=== PATIENT | male | born 1965 | race Hispanic/Latino ===

== ENCOUNTER 2016-09-09 08:08 | Emergency (ER) | payer SELFPAY ==
[2016-09-09] MEDS ORDERED: ATIVAN IV ONE (10:44)
[2016-09-09] MEDS ORDERED: NACL 0.9% 1000 ML 1,000 ML IV ONE (10:44)
[2016-09-09] MEDS ORDERED: GLUCAGEN IV ONE (10:44)
--- NOTE | 2016-09-09 10:46 | Emergency Department Report ---
ED General Adult HPI - General Chief complaint: Skin/Abscess/Foreign Body Stated complaint: FB IN THROAT Time Seen by Provider: 09/09/16 10:28 Source: patient Mode of arrival: Ambulatory Limitations: No Limitations - History of Present Illness Onset/Timin -: Gradual, hour(s) Location: mouth, neck Severity scale (0 -10): 0 Quality: aching Consistency: constant Improves with: none Worsens with: none Associated Symptoms: denies: confusion, chest pain, cough, diaphoresis, fever/ chills, headaches, loss of appetite, malaise, nausea/vomiting, shortness of breath, syncope, weakness - Related Data Home Medications Medication Instructions Recorded Confirmed Last Taken Omeprazole [Prilosec] 04/15/13 04/15/13 Unknown Previous Rx's Medication Instructions Recorded Last Taken Type Azithromycin [Zithromax Z-MARVIN] 250 mg PO DAILY #6 tab 04/15/13 Unknown Rx Prednisone 20 mg PO QDAY #5 tablet 04/15/13 Unknown Rx Promethazine /Codeine 5 ml PO Q6H PRN #60 ml 04/15/13 Unknown Rx [Phenergan/Codeine 6.25-10 mg/5 ml] Ibuprofen [Motrin] 800 mg PO Q8H PRN #14 tablet 11/28/13 Unknown Rx HYDROcodone/APAP 10-325 [[place] 1 each PO Q4-6H PRN #20 tablet 11/29/13 Unknown Rx 10-325 mg TAB] Amoxicillin [Trimox CAP] 500 mg PO Q8H #21 capsule 02/12/14 Unknown Rx HYDROcodone/APAP 5-325 [[place] 1 each PO Q6HR PRN #12 tablet 09/03/15 Unknown Rx 5-325 mg TAB] Ibuprofen [Motrin 800 MG tab] 800 mg PO Q8HR PRN #30 tablet 09/03/15 Unknown Rx Sulfamethoxazole/Trimethoprim 1 each PO BID #20 tablet 09/03/15 Unknown Rx [Bactrim DS TAB] Clindamycin [Clindamycin CAP] 600 mg PO TID #30 capsule 11/27/15 Unknown Rx HYDROcodone/APAP 5-325 [[place] 1 each PO Q6HR PRN #15 tablet 11/27/15 Unknown Rx 5/325] Allergies Allergy/AdvReac Type Severity Reaction Status Date / Time No Known Allergies Allergy Verified 09/09/16 08:11 ED Review of Systems ROS: Stated complaint: FB IN THROAT Other details as noted in HPI Comment: All other systems reviewed and negative ED Past Medical Hx - Past Medical History Hx Hypertension: Yes Hx Heart Attack/AMI: Yes Hx GERD: Yes Additional medical history: Hypercholesterolemia. MORBID OBESITY - Social History Smoking Status: Current Every Day Smoker Substance Use Type: None - Medications Home Medications: Home Medications Medication Instructions Recorded Confirmed Last Taken Type Azithromycin [Zithromax Z-MARVIN] 250 mg PO DAILY #6 tab 04/15/13 Unknown Rx Omeprazole [Prilosec] 04/15/13 04/15/13 Unknown History Prednisone 20 mg PO QDAY #5 tablet 04/15/13 Unknown Rx Promethazine /Codeine 5 ml PO Q6H PRN #60 ml 04/15/13 Unknown Rx [Phenergan/Codeine 6.25-10 mg/5 ml] Ibuprofen [Motrin] 800 mg PO Q8H PRN #14 tablet 11/28/13 Unknown Rx HYDROcodone/APAP 10-325 [[place] 1 each PO Q4-6H PRN #20 tablet 11/29/13 Unknown Rx 10-325 mg TAB] Amoxicillin [Trimox CAP] 500 mg PO Q8H #21 capsule 02/12/14 Unknown Rx HYDROcodone/APAP 5-325 [[place] 1 each PO Q6HR PRN #12 tablet 09/03/15 Unknown Rx 5-325 mg TAB] Ibuprofen [Motrin 800 MG tab] 800 mg PO Q8HR PRN #30 tablet 09/03/15 Unknown Rx Sulfamethoxazole/Trimethoprim 1 each PO BID #20 tablet 09/03/15 Unknown Rx [Bactrim DS TAB] Clindamycin [Clindamycin CAP] 600 mg PO TID #30 capsule 11/27/15 Unknown Rx HYDROcodone/APAP 5-325 [[place] 1 each PO Q6HR PRN #15 tablet 11/27/15 Unknown Rx 5/325] ED Physical Exam - General Limitations: No Limitations General appearance: alert, in no apparent distress - Head Head exam: Present: atraumatic, normocephalic - Eye Eye exam: Present: normal appearance - ENT ENT exam: Present: normal exam, normal orophraynx, mucous membranes moist, TM's normal bilaterally - Neck Neck exam: Present: normal inspection - Respiratory Respiratory exam: Present: normal lung sounds bilaterally. Absent: respiratory distress - Cardiovascular Cardiovascular Exam: Present: regular rate, normal rhythm. Absent: systolic murmur, diastolic murmur, rubs, gallop - GI/Abdominal GI/Abdominal exam: Present: soft, normal bowel sounds - Rectal Rectal exam: Present: deferred - Extremities Exam Extremities exam: Present: normal inspection - Back Exam Back exam: Present: normal inspection - Neurological Exam Neurological exam: Present: alert, oriented X3 - Psychiatric Psychiatric exam: Present: normal affect, normal mood - Skin Skin exam: Present: warm, dry, intact, normal color. Absent: rash ED Course Vital Signs 09/09/16 09/09/16 09/09/16 08:11 08:43 10:30 Temperature 98.2 F 98.4 F Pulse Rate 102 H 104 H 86 Respiratory 20 16 18 Rate Blood Pressure 158/116 Blood Pressure 150/93 128/94 [Right] O2 Sat by Pulse 98 95 96 Oximetry 09/09/16 12:22 Temperature 98.3 F Pulse Rate 93 H Respiratory 18 Rate Blood Pressure Blood Pressure 133/84 [Right] O2 Sat by Pulse 95 Oximetry ED Medical Decision Making - Radiology Data Radiology results: report reviewed, image reviewed - Medical Decision Making patient doing well, handling his own secretions , able to drink a coke here , ct neck with no evidence of FB in throat , will dc and follow up with GI as needed Critical care attestation.: If time is entered above; I have spent that time in minutes in the direct care of this critically ill patient, excluding procedure time. ED Disposition Clinical Impression: Foreign body in throat Disposition: DISCHARGED TO HOME OR SELFCARE Is pt being admited?: No Does the pt Need Aspirin: No Condition: Good Instructions: Foreign Body in Pharynx (ED) Referrals: PRIMARY CARE, [Primary Care Provider] - 3-5 Days Time of Disposition: 12:52
--- NOTE | 2016-09-09 12:42 | Cat Scan Report ---
CT NECK WITHOUT CONTRAST INDICATION: Possible foreign body in esophagus. COMPARISON: None similar. FINDINGS: Noncontrast axial, sagittal and coronal CT reconstructions through the neck demonstrate patent airway with grossly unremarkable esophagus and also remainder visualized pharynx, hypopharynx and the larynx. Normal size thyroid. Streak artifact related to patient's body habitus. No radiopaque foreign body along the imaged airway or esophagus noted. Few small neck lymph nodes noted, within size limits. Symmetric imaged salivary glands. Streak artifact from few radiopaque dental material limits exam. Mild rightward nasal septal bowing. Mild right ethmoid sinusitis posteriorly. Near complete left sphenoid sinus mucoperiosteal thickening. Slight right mastoiditis. Clear remainder imaged paranasal sinuses and left mastoid air cells. Normal imaged intracranial appearance. Clear imaged lung apices. Few C5-C6 degenerative changes. CONCLUSION: No acute neck CT abnormality on this unenhanced exam or visualization of radiopaque foreign body with few other findings, including severe left sphenoid chronic sinusitis, amongst others, as above. Please correlate. Thank you for the opportunity to participate in this patient's care.
[2016-09-09 13:16] VITALS: BP 130/82
== END 2016-09-09 13:17 | disposition home or self-care (01) ==
LOC: ED 08:08
DX: T17.208A Unspecified foreign body in pharynx causing other injury, initial encounter (principal); I10 Essential (primary) hypertension; I25.2 Old myocardial infarction; K21.9 Gastro-esophageal reflux disease without esophagitis; E78.00 Pure hypercholesterolemia, unspecified; E66.01 Morbid (severe) obesity due to excess calories; F17.200 Nicotine dependence, unspecified, uncomplicated
CPT/HCPCS: 70490; 96361; 96374; 96375; 99283; J1610; J2060; J7030

== ENCOUNTER 2019-09-08 16:32 | Emergency (ER) | payer SELFPAY ==
[2019-09-08] MEDS ORDERED: ASPIRIN 325 MG TAB PO ONE (16:46)
--- NOTE | 2019-09-08 17:36 | XRay Report ---
CHEST 2 VIEWS INDICATION / CLINICAL INFORMATION: Chest Pain. COMPARISON: 02/10/2017 FINDINGS: SUPPORT DEVICES: None. HEART / MEDIASTINUM: No significant abnormality. LUNGS / PLEURA: No significant pulmonary or pleural abnormality. No pneumothorax. ADDITIONAL FINDINGS: No significant additional findings. IMPRESSION: 1. No acute findings. Signer Name: Uche Crockett MD Signed: 09/08/2019 5:32 PM Workstation Name: [id number]
[2019-09-08 17:39] LABS: Basophils % (Auto) 0.4 % (0.0-1.8); Eosinophils # (Auto) 0.2 K/mm3 (0.0-0.4); Eosinophils % (Auto) 3.9 % (0.0-4.3); Hematocrit 45.9 % (35.5-45.6); Hemoglobin 15.7 gm/dl (11.8-15.2); Lymphocytes % (Auto) 35.2 % (13.4-35.0); Mean Corpuscular HGB Conc 34 % (32-34); Mean Corpuscular Volume 98 fl (84-94); Monocytes # (Auto) 0.5 K/mm3 (0.0-0.8); Monocytes % (Auto) 8.1 % (0.0-7.3); Platelet Count 151 K/mm3 (140-440); Red Blood Count 4.67 M/mm3 (3.65-5.03); Red Cell Distribution Width 12.9 % (13.2-15.2)
--- NOTE | 2019-09-08 17:45 | Emergency Department Report ---
HPI - General Chief Complaint: Chest Pain PUI?: No Time Seen by Provider: 09/08/19 17:16 - HPI HPI: Room 26 The patient is a 54-year-old male present with a chief complaint of chest pain. The patient states he was working outside when he developed substernal chest pain described as a sharpness and pressure. Patient admits to shortness of breath and diaphoresis. Patient denies nausea or vomiting. Patient states there is a pleuritic component to his pain. Patient denies any recent flights or long car trips. Patient states he was advised by care team assistant that he needs a cardiac catheterization but he has not yet received 1. ED Past Medical Hx - Past Medical History Previous Medical History?: Yes Hx Hypertension: Yes Hx Heart Attack/AMI: Yes Hx Diabetes: Yes Hx GERD: Yes Additional medical history: Hypercholesterolemia. MORBID OBESITY - Surgical History Additional Surgical History: Herniorrhaphy - Family History Family history: no significant - Social History Smoking Status: Former Smoker (None x3 years) Substance Use Type: None (Denies illicit drug use) - Medications Home Medications: Home Medications Medication Instructions Recorded Confirmed Last Taken Type Azithromycin [Zithromax Z-MARVIN] 250 mg PO DAILY #6 tab 04/15/13 Unknown Rx Omeprazole [Prilosec] 04/15/13 04/15/13 Unknown History Prednisone 20 mg PO QDAY #5 tablet 04/15/13 Unknown Rx Promethazine /Codeine 5 ml PO Q6H PRN #60 ml 04/15/13 Unknown Rx [Phenergan/Codeine 6.25-10 mg/5 ml] Ibuprofen [Motrin] 800 mg PO Q8H PRN #14 tablet 11/28/13 Unknown Rx HYDROcodone/APAP 10-325 [[address] 1 each PO Q4-6H PRN #20 tablet 11/29/13 Unknown Rx 10-325 mg TAB] Amoxicillin [Trimox CAP] 500 mg PO Q8H #21 capsule 02/12/14 Unknown Rx HYDROcodone/APAP 5-325 [[address] 1 each PO Q6HR PRN #12 tablet 09/03/15 Unknown Rx 5-325 mg TAB] Ibuprofen [Motrin 800 MG tab] 800 mg PO Q8HR PRN #30 tablet 09/03/15 Unknown Rx Sulfamethoxazole/Trimethoprim 1 each PO BID #20 tablet 09/03/15 Unknown Rx [Bactrim DS TAB] Clindamycin [Clindamycin CAP] 600 mg PO TID #30 capsule 11/27/15 Unknown Rx ALBUTEROL NEB's [Proventil 0.083% 2.5 mg IH TID PRN #1 box 02/10/17 Unknown Rx NEBS] Albuterol INH(or & Nicu Only) 2 puff IH QID PRN #1 inhalation 02/10/17 Unknown Rx [ProAir HFA Inhaler] Azithromycin [Zithromax Z-MARVIN] 1 dose PO DAILY 5 Days tab 02/10/17 Unknown Rx Benzonatate [Tessalon Perles] 100 mg PO Q8HR PRN #30 capsule 02/10/17 Unknown Rx HYDROcodone/APAP 5-325 [[address] 1 each PO Q6HR PRN #15 tablet 02/10/17 Unknown Rx 5-325 mg TAB] metFORMIN [Glucophage] 500 mg PO BID #60 tablet 02/10/17 Unknown Rx ED Review of Systems ROS: Stated complaint: CHEST PAIN Other details as noted in HPI Constitutional: diaphoresis Eyes: denies: eye pain ENT: denies: throat pain Respiratory: shortness of breath Cardiovascular: chest pain Endocrine: no symptoms reported Gastrointestinal: denies: nausea, vomiting Physical Exam - Physical Exam Vital Signs: Vital Signs 09/08/19 16:43 Temperature 98.3 F Pulse Rate 74 Respiratory 16 Rate Blood Pressure 158/90 O2 Sat by Pulse 96 Oximetry Physical Exam: GENERAL: The patient is well-developed well-nourished male sitting on stretcher not appearing to be in acute distress. [] HEENT: Normocephalic. Atraumatic. Extraocular motions are intact. Patient has moist mucous membranes. NECK: Supple. Trachea midline CHEST/LUNGS: Clear to auscultation. There is no respiratory distress noted. HEART/CARDIOVASCULAR: Regular. There is no tachycardia. There is no gallop rub or murmur. ABDOMEN: Abdomen is soft, nontender. Patient has normal bowel sounds. There is no abdominal distention. SKIN: There is no rash. There is trace bilateral lower extremity pitting edema. There is no diaphoresis. NEURO: The patient is awake, alert, and oriented. The patient is cooperative. The patient has normal speech MUSCULOSKELETAL: There is no evidence of acute injury. ED Course Vital Signs 09/08/19 16:43 Temperature 98.3 F Pulse Rate 74 Respiratory 16 Rate Blood Pressure 158/90 O2 Sat by Pulse 96 Oximetry ED Medical Decision Making - Lab Data Result diagrams: 09/08/19 17:32 09/08/19 17:32 Laboratory Tests 09/08/19 09/08/19 09/08/19 17:32 17:32 17:32 WBC 5.6 RBC 4.67 Hgb 15.7 H Hct 45.9 H MCV 98 H MCH 34 H MCHC 34 RDW 12.9 L Plt Count 151 Lymph % (Auto) 35.2 H [place] % (Auto) 8.1 H Eos % (Auto) 3.9 Baso % (Auto) 0.4 Lymph # 2.0 [place] # 0.5 Eos # 0.2 Baso # 0.0 Seg Neutrophils % 52.4 Seg Neutrophils # 2.9 D-Dimer 173.65 Sodium 139 Potassium 4.3 Chloride 98.6 Carbon Dioxide 28 Anion Gap 17 BUN 14 Creatinine 0.7 L Estimated GFR > 60 BUN/Creatinine Ratio 20 Glucose 224 H Calcium 9.7 Troponin T < 0.010 NT-Pro-B Natriuret Pep 09/08/19 17:32 WBC RBC Hgb Hct MCV MCH MCHC RDW Plt Count Lymph % (Auto) [place] % (Auto) Eos % (Auto) Baso % (Auto) Lymph # [place] # Eos # Baso # Seg Neutrophils % Seg Neutrophils # D-Dimer Sodium Potassium Chloride Carbon Dioxide Anion Gap BUN Creatinine Estimated GFR BUN/Creatinine Ratio Glucose Calcium Troponin T NT-Pro-B Natriuret Pep 24.01 - EKG Data -: EKG Interpreted by Me EKG shows normal: sinus rhythm Rate: normal - EKG Data When compared to previous EKG there are: previous EKG unavailable Interpretation: other (No ischemic changes seen) - Radiology Data Radiology results: report reviewed (Chest x-ray), image reviewed (Chest x-ray) interpreted by me: Chest x-ray-no focal infiltrates, no pneumothorax [facility] [address] [place] [address] XRay Report Signed Patient: MARCELINA SEGURA MR#: [id number] : 1965 Acct:[id number] Age/Sex: 54 / M ADM Date: 09/08/19 Loc: ED Attending Dr: Ordering Physician: KAVYA NUGENT MD Date of Service: 09/08/19 Procedure(s): XR chest routine 2V Accession Number(s): [id number] cc: KAVYA NUGENT MD Fluoro Time In Minutes: CHEST 2 VIEWS INDICATION / CLINICAL INFORMATION: Chest Pain. COMPARISON: 02/10/2017 FINDINGS: SUPPORT DEVICES: None. HEART / MEDIASTINUM: No significant abnormality. LUNGS / PLEURA: No significant pulmon carolyn or pleural abnormality. No pneumothorax. ADDITIONAL FINDINGS: No significant additional findings. IMPRESSION: 1. No acute findings. Signer Name: Uche Crockett MD Signed: 09/08/2019 5:32 PM Workstation Name: [id number] Transcribed By: [place] Dictated By: Uche Crockett MD Electronically Authenticated By: Uche Crockett MD Signed Date/Time: 09/08/191731 DD/ 30 TD/TT: - Medical Decision Making Asked discussed with the patient at length my concern for his chest pain and his lack of a previous cardiac work-up. I explained that it is possible he may be having an event despite his lab results and EKG findings. Patient verbalized understanding and states he does not wish to be admitted to the hospital. Patient verbalized understanding of increased morbidity and/or mortality should he leave the hospital AGAINST MEDICAL ADVICE - Differential Diagnosis ACS, pericarditis, GERD Critical care attestation.: If time is entered above; I have spent that time in minutes in the direct care of this critically ill patient, excluding procedure time. ED Disposition Clinical Impression: Chest pain Disposition: DC-07 LEFT AGAINST MED ADVICE Is pt being admited?: No Does the pt Need Aspirin: Yes Condition: Undetermined Instructions: Chest Pain (ED) Time of Disposition: 18:51 (Patient leaving AMA)
[2019-09-08 17:55] LABS: BUN/Creatinine Ratio 20; Blood Urea Nitrogen 14 mg/dL (9-20); Calcium 9.7 mg/dL (8.4-10.2); Hemolysis Index 11
[2019-09-08 18:14] VITALS: BP 102/74
== END 2019-09-08 19:01 | disposition left against medical advice (07) ==
LOC: ED 16:32
DX: R07.89 Other chest pain (principal); I11.0 Hypertensive heart disease with heart failure; I50.9 Heart failure, unspecified; E11.9 Type 2 diabetes mellitus without complications; K21.9 Gastro-esophageal reflux disease without esophagitis; Z87.891 Personal history of nicotine dependence
CPT/HCPCS: 36415; 71046; 80048; 83880; 84484; 85025; 85379; 93005

== ENCOUNTER 2021-04-16 03:02 | Inpatient (IN) | payer SELFPAY ==
--- NOTE | 2021-04-16 03:43 | XRay Report ---
CHEST 1 VIEW INDICATION / CLINICAL INFORMATION: Difficulty breathing. COMPARISON: 09/08/2019 FINDINGS: SUPPORT DEVICES: None. HEART / MEDIASTINUM: No significant abnormality. LUNGS / PLEURA: There are mild scattered bilateral pulmonary opacities mostly present in the mid and lower lung [place]. No pleural effusion. No pneumothorax. ADDITIONAL FINDINGS: No significant additional findings. IMPRESSION: 1. Mild scattered pulmonary opacities, worrisome for multifocal viral pneumonia. Please correlate wit h Covid status. Signer Name: Debra Contreras MD Signed: 04/16/2021 3:38 AM Workstation Name: [email or web address]
[2021-04-16] MEDS ORDERED: dexAMETHasone 4 MG/ML VIAL IV ONE (07:06)
[2021-04-16 07:35] LABS: Hematocrit 36.5 % (35.5-45.6); Hemoglobin 11.6 gm/dl (11.8-15.2); Mean Corpuscular HGB Conc 32 % (32-34); Mean Corpuscular Volume 80 fl (84-94); Platelet Count 188 K/mm3 (140-440); Red Blood Count 4.56 M/mm3 (3.65-5.03); Red Cell Distribution Width 16.3 % (13.2-15.2)
[2021-04-16 08:00] LABS: Alanine Aminotransferase 33 units/L (7-56); Albumin 3.8 g/dL (3.9-5); BUN/Creatinine Ratio 22; Blood Urea Nitrogen 13 mg/dL (9-20); Calcium 8.8 mg/dL (8.4-10.2); Hemolysis Index 10
--- NOTE | 2021-04-16 09:05 | Emergency Department Report ---
ED General Adult HPI - General Chief complaint: Dyspnea/Respdistress Stated complaint: SUYAPA Time Seen by Provider: 04/16/21 07:01 Source: patient Mode of arrival: Ambulatory Limitations: No Limitations - History of Present Illness Initial comments: sob and suyapa , not vaccinated , histoyr of htn , diabetes, no fever no chets pain -: Gradual Location: head Severity scale (0 -10): 2 Quality: dull - Related Data Home Medications Medication Instructions Recorded Confirmed Last Taken Omeprazole [Prilosec] 04/15/13 04/15/13 Unknown Previous Rx's Medication Instructions Recorded Last Taken Type ALBUTEROL NEB's [Proventil 0.083% 2.5 mg IH TID PRN #1 box 02/10/17 Unknown Rx NEBS] Albuterol Mdi (or & Nicu Only) 2 puff IH QID PRN #1 inhalation 02/10/17 Unknown Rx [ProAir HFA Inhaler] Benzonatate [Tessalon Perles] 100 mg PO Q8HR PRN #30 capsule 02/10/17 Unknown Rx metFORMIN [Glucophage] 500 mg PO BID #60 tablet 02/10/17 Unknown Rx Allergies Allergy/AdvReac Type Severity Reaction Status Date / Time No Known Allergies Allergy Verified 02/09/17 19:27 ED Review of Systems ROS: Stated complaint: SUYAPA Other details as noted in HPI Constitutional: denies: chills, fever Eyes: denies: eye pain, eye discharge, vision change ENT: denies: ear pain, throat pain Respiratory: denies: cough, shortness of breath, wheezing Cardiovascular: denies: chest pain, palpitations Endocrine: no symptoms reported Gastrointestinal: denies: abdominal pain, nausea, diarrhea Genitourinary: denies: urgency, dysuria Musculoskeletal: denies: back pain, joint swelling, arthralgia Skin: denies: rash, lesions Neurological: denies: headache, weakness, paresthesias Psychiatric: denies: anxiety, depression Hematological/Lymphatic: denies: easy bleeding, easy bruising ED Past Medical Hx - Past Medical History Previous Medical History?: Yes Hx Hypertension: Yes Hx Heart Attack/AMI: Yes Hx Diabetes: Yes Hx GERD: Yes Additional medical history: Hypercholesterolemia. MORBID OBESITY - Surgical History Past Surgical History?: Yes Additional Surgical History: Herniorrhaphy - Social History Smoking Status: Former Smoker (None x3 years) Substance Use Type: None (Denies illicit drug use) - Medications Home Medications: Home Medications Medication Instructions Recorded Confirmed Last Taken Type Omeprazole [Prilosec] 04/15/13 04/15/13 Unknown History ALBUTEROL NEB's [Proventil 0.083% 2.5 mg IH TID PRN #1 box 02/10/17 Unknown Rx NEBS] Albuterol Mdi (or & Nicu Only) 2 puff IH QID PRN #1 inhalation 02/10/17 Unknown Rx [ProAir HFA Inhaler] Benzonatate [Tessalon Perles] 100 mg PO Q8HR PRN #30 capsule 02/10/17 Unknown Rx metFORMIN [Glucophage] 500 mg PO BID #60 tablet 02/10/17 Unknown Rx ED Physical Exam - General Limitations: No Limitations General appearance: alert, in no apparent distress - Head Head exam: Present: atraumatic, normocephalic - Eye Eye exam: Present: normal appearance - ENT ENT exam: Present: mucous membranes moist - Neck Neck exam: Present: normal inspection - Respiratory Respiratory exam: Present: normal lung sounds bilaterally. Absent: respiratory distress - Cardiovascular Cardiovascular Exam: Present: regular rate, normal rhythm. Absent: systolic murmur, diastolic murmur, rubs, gallop - GI/Abdominal GI/Abdominal exam: Present: soft, normal bowel sounds - Rectal Rectal exam: Present: deferred - Extremities Exam Extremities exam: Present: normal inspection - Back Exam Back exam: Present: normal inspection - Neurological Exam Neurological exam: Present: alert, oriented X3 - Psychiatric Psychiatric exam: Present: normal affect, normal mood - Skin Skin exam: Present: warm, dry, intact, normal color. Absent: rash ED Course Vital Signs 04/16/21 04/16/21 03:05 05:34 Temperature 98.0 F Pulse Rate 90 Respiratory 20 Rate Blood Pressure 142/78 O2 Sat by Pulse 93 93 Oximetry ED Medical Decision Making - Lab Data Result diagrams: 04/16/21 06:47 04/16/21 06:47 Critical care attestation.: If time is entered above; I have spent that time in minutes in the direct care of this critically ill patient, excluding procedure time. ED Disposition Clinical Impression: Pneumonia due to COVID-19 virus, Hypoxia Disposition: 09 ADMITTED INPATIENT Is pt being admited?: Yes Does the pt Need Aspirin: No Condition: Stable Instructions: Bacterial Pneumonia (ED), Hypoxia Referrals: PRIMARY CARE, [Primary Care Provider] - 3-5 Days
[2021-04-16] MEDS ORDERED: ONDANSETRON 4 MG/2 ML INJ IV PRN (09:16)
[2021-04-16] MEDS ORDERED: NALOXONE 0.4 MG/1 ML INJ IV PRN (09:16)
[2021-04-16] MEDS ORDERED: ACETAMINOPHEN 325 MG TAB PO PRN (09:16)
[2021-04-16] MEDS ORDERED: MORPHINE 4 MG/1 ML INJ IV PRN (09:16)
[2021-04-16] MEDS ORDERED: ENOXAPARIN 40 MG/0.4 ML INJ SUB-Q ONE ×2 (10:18→23:06)
[2021-04-16] MEDS: guaiFENesin ER 600 MG TAB PO SCH (13:56)
[2021-04-16] MEDS: IPRATROPIUM/ALBUTEROL SULFATE 3 ML AMPUL.NEB IH SCH (13:59)
--- NOTE | 2021-04-16 15:35 | History and Physical Report ---
History of Present Illness Date of examination: 04/16/21 Date of admission: 04/16/21 09:16 Chief complaint: Cough and shortness of breath Medications and Allergies Allergies Allergy/AdvReac Type Severity Reaction Status Date / Time No Known Allergies Allergy Verified 04/17/21 14:15 Home Medications Medication Instructions Recorded Confirmed Last Taken Type Omeprazole [Prilosec] 40 mg PO QDAY 04/15/13 04/17/21 Unknown History Albuterol Mdi (or & Nicu Only) 2 puff IH QID PRN #1 inhalation 02/10/17 04/17/21 Unknown Rx [ProAir HFA Inhaler] ALBUTEROL NEB's [Proventil 0.083% 2.5 mg IH QID PRN 04/17/21 04/17/21 Unknown History NEBS] Ascorbic Acid/Ascorbate Sodium 500 mg PO QDAY 04/17/21 04/17/21 Unknown History [Vitamin C 500 mg Tablet Chew] Aspirin [Aspirin BABY CHEW TAB] 81 mg PO QDAY 04/17/21 04/17/21 Unknown History Ergocalciferol [Vitamin D2] 1 cap PO QWEEK 04/17/21 04/17/21 Unknown History Gabapentin 300 mg PO TID 04/17/21 04/17/21 Unknown History Ibuprofen/Pseudoephedrine HCl 1 each PO Q6H PRN 04/17/21 04/17/21 Unknown History [Advil Cold & Sinus Caplet] Insulin Detemir [Levemir Flextouch] 20 - 25 units SQ QHS 04/17/21 04/17/21 Unknown History Meloxicam [Mobic] 15 mg PO QDAY 04/17/21 04/17/21 Unknown History Metformin HCl [metFORMIN] 1,000 mg PO BIDAC 04/17/21 04/17/21 Unknown History Multivitamin 1 each PO QDAY 04/17/21 04/17/21 Unknown History [place]-3 Fatty Acids/Fish Oil [Fish 1 each PO QDAY 04/17/21 04/17/21 Unknown History Oil 1,000 mg Capsule] Potassium 99 mg PO QDAY 04/17/21 04/17/21 Unknown History Pravastatin Sodium [Pravastatin] 40 mg PO QHS 04/17/21 04/17/21 Unknown History Zinc [Zinc 50mg TAB] 50 mg PO QDAY 04/17/21 04/17/21 Unknown History carvediloL [Coreg] 12.5 mg PO BID 04/17/21 04/17/21 Unknown History glipiZIDE [Glucotrol] 10 mg PO TID 04/17/21 04/17/21 Unknown History Active Meds: Active Medications Acetaminophen (Acetaminophen 325 Mg Tab) 650 mg PO Q4H PRN PRN Reason: Pain MILD(1-3)/Fever >100.5/ADDISON Albuterol/Ipratropium (Ipratropium/Albuterol Sulfate 3 Ml Ampul.Neb) 1 ampul IH Q6HRT [facility] Last Admin: 04/16/21 13:59 Dose: Not Given Guaifenesin (Guaifenesin Er 600 Mg Tab) 600 mg PO BID [facility] Last Admin: 04/16/21 13:56 Dose: 600 mg Morphine Sulfate (Morphine 4 Mg/1 Ml Inj) 4 mg IV Q4H PRN PRN Reason: Pain , Severe (7-10) Naloxone HCl (Naloxone 0.4 Mg/1 Ml Inj) 0.1 mg IV Q2MIN PRN PRN Reason: Res Rate </= 8 or 02 SAT < 92% Ondansetron HCl (Ondansetron 4 Mg/2 Ml Inj) 4 mg IV Q8H PRN PRN Reason: Nausea And Vomiting Oxycodone/Acetaminophen (Oxycodone /Acetaminophen 5-325mg Tab) 1 tab PO Q6H PRN PRN Reason: Pain, Moderate (4-6) Sodium Chloride (Sodium Chloride 0.9% 10 Ml Flush Syringe) 10 ml IV BID [facility] Last Admin: 04/16/21 11:23 Dose: Not Given Sodium Chloride (Sodium Chloride 0.9% 10 Ml Flush Syringe) 10 ml IV PRN PRN PRN Reason: LINE FLUSH Exam - Physical Exam Narrative exam: GENERAL: Well-developed well-nourished. Sitting up in bed, in no acute distr ess. HEENT: Nasal cannula at 5 L/min NECK: Supple. CHEST/LUNGS: Decreased breath sounds bilaterally. HEART/CARDIOVASCULAR: RRR. No murmur, rubs or gallops appreciated. ABDOMEN: Obese. +BS. NT/ND. SKIN: No rashes noted. NEURO: No focal motor deficit. Follows all commands. MUSCULOSKELETAL: No joint effusion EXTREMITIES: No cyanosis, clubbing or edema. PSYCH: Cooperative. - Constitutional Vitals: Temp Pulse Resp BP Pulse Ox 98.0 F 90 20 142/78 98 04/16/21 03:05 04/16/21 03:05 04/16/21 03:05 04/16/21 03:05 04/16/21 09:51 HEART Score - HEART Score Troponin: Troponin T < 0.010 ng/mL (0.00-0.029) 04/16/21 06:47 Results - Labs CBC & Chem 7: 04/17/21 03:20 04/18/21 05:08 Labs: Laboratory Last Values WBC 4.1 K/mm3 (4.5-11.0) L 04/16/21 06:47 RBC 4.56 M/mm3 (3.65-5.03) 04/16/21 06:47 Hgb 11.6 gm/dl (11.8-15.2) L 04/16/21 06:47 Hct 36.5 % (35.5-45.6) 04/16/21 06:47 MCV 80 fl (84-94) L 04/16/21 06:47 MCH 25 pg (28-32) L 04/16/21 06:47 MCHC 32 % (32-34) 04/16/21 06:47 RDW 16.3 % (13.2-15.2) H 04/16/21 06:47 Plt Count 188 K/mm3 (140-440) 04/16/21 06:47 D-Dimer 295.17 ng/mlDDU (0-234) H 04/16/21 06:47 Sodium 133 mmol/L (137-145) L 04/16/21 06:47 Potassium 4.4 mmol/L (3.6-5.0) 04/16/21 06:47 Chloride 93.5 mmol/L (98-107) L 04/16/21 06:47 Carbon Dioxide 23 mmol/L (22-30) 04/16/21 06:47 Anion Gap 21 mmol/L 04/16/21 06:47 BUN 13 mg/dL (9-20) 04/16/21 06:47 Creatinine 0.6 mg/dL (0.8-1.3) L 04/16/21 06:47 Estimated GFR > 60 ml/min 04/16/21 06:47 BUN/Creatinine Ratio 22 % 04/16/21 06:47 Glucose 197 mg/dL (75-100) H 04/16/21 06:47 Calcium 8.8 mg/dL (8.4-10.2) 04/16/21 06:47 Total Bilirubin 0.40 mg/dL (0.1-1.2) 04/16/21 06:47 AST 48 units/L (5-40) H 04/16/21 06:47 ALT 33 units/L (7-56) 04/16/21 06:47 Alkaline Phosphatase 58 units/L (35-129) 04/16/21 06:47 Troponin T < 0.010 ng/mL (0.00-0.029) 04/16/21 06:47 C-Reactive Protein 6.00 mg/dL (0.00-1.30) H 04/16/21 06:47 Total Protein 7.2 g/dL (6.3-8.2) 04/16/21 06:47 Albumin 3.8 g/dL (3.9-5) L 04/16/21 06:47 Albumin/Globulin Ratio 1.1 % 04/16/21 06:47 Assessment and Plan Assessment and plan: #Acute hypoxic respiratory failure #Pneumonia #Suspected Covid infection -currently on 5L NC, no oxygen requirement at home -CXR shows bilateral infiltrates -d-dimer mildly elevated, will repeat in 48 hours, if elevated will consider CTA -patient uses albuterol nebulizer at home, could have underlying COPD or OHS due to size? -albuterol nebs -COVID PCR and rapid flu ordered -will start empiric antibiotics for CAP coverage #Type 2 diabetes with neuropathy -outpatient regimen: detemir 20-25 qhs, metformin 1g BID, glipizide 10mg -started lantus 25U QHS w/ SSI while inpatient -goal glucose 140-180s -continue gabapentin at home dose #Hypertension -continue carvedilol #Hyperlipidemia -atorvastatin #Obesity -BMI 50.2 -discussed lifestyle modifications (diet, exercise) and the effects of weight loss on overall healt. Time+10 minutes -candidate for bariatric surgery outpatient -high risk for sleep apnea, CPAP at night
[2021-04-16] MEDS ORDERED: DEXTROSE 50% IN WATER (25GM) 50 ML SYRINGE IV PRN (15:59)
[2021-04-16] MEDS ORDERED: SODIUM CHLORIDE 0.9% 1000 ML 1,000 ML IV SCH (16:00)
[2021-04-16] MEDS: cefTRIAXone/NS 1 GM/50 ML 1 GM/50 ML BAG IV SCH (18:04)
[2021-04-16] MEDS: AZITHROMYCIN 250 MG TAB PO SCH (18:12)
[2021-04-16] MEDS: INSULIN LISPRO 100 UNIT/ML SUB-Q SCH ×2 (18:35→22:00)
[2021-04-16] MEDS: ENOXAPARIN 40 MG/0.4 ML INJ SUB-Q SCH (22:00)
[2021-04-16] MEDS: ALBUTEROL 8.5 GM MDI INHALATION IH SCH (23:00)
[2021-04-17] MEDS ORDERED: guaiFENesin 100 MG/5 ML ORAL LIQD PO PRN (01:09)
[2021-04-17] MEDS: guaiFENesin ER 600 MG TAB PO SCH ×3 (01:10→21:40)
[2021-04-17] MEDS: MELATONIN 5 MG TAB PO PRN ×2 (01:38→23:09)
[2021-04-17] MEDS: oxyCODONE /ACETAMINOPHEN 5-325MG TAB PO PRN ×3 (01:38→18:35)
[2021-04-17] MEDS: IPRATROPIUM/ALBUTEROL SULFATE 3 ML AMPUL.NEB IH SCH (01:53)
[2021-04-17 04:05] LABS: Basophils % (Auto) 0.2 % (0.0-1.8); Hemoglobin 11.2 gm/dl (11.8-15.2); Lymphocytes # (Auto) 0.9 K/mm3 (1.2-5.4); Lymphocytes % (Auto) 22.2 % (13.4-35.0); Mean Corpuscular HGB Conc 31 % (32-34); Mean Corpuscular Volume 81 fl (84-94); Monocytes # (Auto) 0.5 K/mm3 (0.0-0.8); Monocytes % (Auto) 10.9 % (0.0-7.3); Platelet Count 190 K/mm3 (140-440); Red Blood Count 4.46 M/mm3 (3.65-5.03); Red Cell Distribution Width 16.1 % (13.2-15.2)
[2021-04-17 04:22] LABS: Blood Urea Nitrogen 13 mg/dL (9-20); Calcium 8.4 mg/dL (8.4-10.2); Hemolysis Index 7
[2021-04-17 04:36] LABS: BUN/Creatinine Ratio 19
[2021-04-17] MEDS: ALBUTEROL 8.5 GM MDI INHALATION IH SCH ×4 (07:29→19:27)
--- NOTE | 2021-04-17 08:17 | Progress Note ---
Assessment and Plan Assessment and plan: #Acute hypoxic respiratory failure #Pneumonia #Suspected Covid infection -currently on 5L [place], no oxygen requirement at home -CXR shows bilateral infiltrates -d-dimer mildly elevated, will repeat in 24 hours, if elevated will consider CTA -patient uses albuterol nebulizer at home, could have underlying COPD or OHS due to size? -albuterol nebs -continue azithromax and rocephin #Type 2 diabetes with neuropathy -outpatient regimen: detemir 20-25 qhs, metformin 1g BID, glipizide 10mg -continue lantus 25U QHS w/ SSI while inpatient -goal glucose 140-180s -continue gabapentin at home dose #Hypertension -continue carvedilol #Hyperlipidemia -atorvastatin #Obesity -BMI 50.2 -discussed lifestyle modifications (diet, exercise) and the effects of weight loss on overall health. -candidate for bariatric surgery outpatient -high risk for sleep apnea, CPAP at night Disposition Plan: Continue medical management History Interval history: No acute events overnight. Patient has multiple complaints about daytime nursing. Shortness of breath is stable. Continues to have cough that is bothersome. No other complaints at this time. Hospitalist Physical - Physical exam Narrative exam: GENERAL: Well-developed well-nourished. Sitting up in bed, in no acute distress. HEENT: Nasal cannula at 5 L/min NECK: Supple. CHEST/LUNGS: Decreased breath sounds bilaterally. HEART/CARDIOVASCULAR: RRR. No murmur, rubs or gallops appreciated. ABDOMEN: Obese. +BS. NT/ND. SKIN: No rashes noted. NEURO: No focal motor deficit. Follows all commands. MUSCULOSKELETAL: No joint effusion EXTREMITIES: No cyanosis, clubbing or edema. PSYCH: Cooperative. - Constitutional Vitals: Temp Pulse Resp BP Pulse Ox 98.0 F 90 20 113/64 92 04/16/21 03:05 04/16/21 10:30 04/17/21 00:23 04/17/21 07:31 04/17/21 07:31 HEART Score - HEART Score Troponin: Troponin T < 0.010 ng/mL (0.00-0.029) 04/16/21 06:47 Results - Labs CBC & Chem 7: 04/17/21 03:20 04/18/21 05:08 Labs: Laboratory Last Values WBC 4.1 K/mm3 (4.5-11.0) L 04/17/21 03:20 RBC 4.46 M/mm3 (3.65-5.03) 04/17/21 03:20 Hgb 11.2 gm/dl (11.8-15.2) L 04/17/21 03:20 Hct 36.0 % (35.5-45.6) 04/17/21 03:20 MCV 81 fl (84-94) L 04/17/21 03:20 MCH 25 pg (28-32) L 04/17/21 03:20 MCHC 31 % (32-34) L 04/17/21 03:20 RDW 16.1 % (13.2-15.2) H 04/17/21 03:20 Plt Count 190 K/mm3 (140-440) 04/17/21 03:20 Lymph % (Auto) 22.2 % (13.4-35.0) 04/17/21 03:20 [place] % (Auto) 10.9 % (0.0-7.3) H 04/17/21 03:20 Eos % (Auto) 0.0 % (0.0-4.3) 04/17/21 03:20 Baso % (Auto) 0.2 % (0.0-1.8) 04/17/21 03:20 Lymph # (Auto) 0.9 K/mm3 (1.2-5.4) L 04/17/21 03:20 [place] # (Auto) 0.5 K/mm3 (0.0-0.8) 04/17/21 03:20 Eos # (Auto) 0.0 K/mm3 (0.0-0.4) 04/17/21 03:20 Baso # (Auto) 0.0 K/mm3 (0.0-0.1) 04/17/21 03:20 Seg Neutrophils % 66.7 % (40.0-70.0) 04/17/21 03:20 Seg Neutrophils # 2.8 K/mm3 (1.8-7.7) 04/17/21 03:20 D-Dimer 295.17 ng/mlDDU (0-234) H 04/16/21 06:47 Sodium 132 mmol/L (137-145) L 04/17/21 03:20 Potassium 4.0 mmol/L (3.6-5.0) 04/17/21 03:20 Chloride 93.4 mmol/L (98-107) L 04/17/21 03:20 Carbon Dioxide 23 mmol/L (22-30) 04/17/21 03:20 Anion Gap 20 mmol/L 04/17/21 03:20 BUN 13 mg/dL (9-20) 04/17/21 03:20 Creatinine 0.7 mg/dL (0.8-1.3) L 04/17/21 03:20 Estimated GFR > 60 ml/min 04/17/21 03:20 BUN/Creatinine Ratio 19 % 04/17/21 03:20 Glucose 235 mg/dL (75-100) H 04/17/21 03:20 POC Glucose 252 mg/dL (70-105) H 04/16/21 22:34 Calcium 8.4 mg/dL (8.4-10.2) 04/17/21 03:20 Total Bilirubin 0.40 mg/dL (0.1-1.2) 04/16/21 06:47 AST 48 units/L (5-40) H 04/16/21 06:47 ALT 33 units/L (7-56) 04/16/21 06:47 Alkaline Phosphatase 58 units/L (35-129) 04/16/21 06:47 Troponin T < 0.010 ng/mL (0.00-0.029) 04/16/21 06:47 C-Reactive Protein 6.00 mg/dL (0.00-1.30) H 04/16/21 06:47 Total Protein 7.2 g/dL (6.3-8.2) 04/16/21 06:47 Albumin 3.8 g/dL (3.9-5) L 04/16/21 06:47 Albumin/Globulin Ratio 1.1 % 04/16/21 06:47 Active Medications - Current Medications Current Medications: Generic Name Dose Route Start Last Admin Trade Name Freq PRN Reason Stop Dose Admin Acetaminophen 650 mg 04/16/21 09:16 Acetaminophen 325 Mg Tab PO Q4H PRN Pain MILD(1-3)/Fever >100.5/ADDISON Albuterol 2 puff 04/17/21 08:00 Albuterol 8.5 Gm Mdi Inhalation IH TIDRT EDILBERTO Azithromycin 500 mg 04/16/21 17:00 04/16/21 18:12 Azithromycin 250 Mg Tab PO 500 mg QDAY [facility] Administration Protocol Dextrose 50 ml 04/16/21 15:59 Dextrose 50% In Water (25gm) 50 Ml Syringe IV Q30MIN PRN Hypoglycemia Protocol Enoxaparin Sodium 40 mg 04/17/21 22:00 04/16/21 22:00 Enoxaparin 40 Mg/0.4 Ml Inj SUB-Q 40 mg QDAY@2200 [facility] Administration Protocol Guaifenesin 600 mg 04/16/21 14:00 04/17/21 01:10 Guaifenesin Er 600 Mg Tab PO 600 mg BID EDILBERTO Administration Sodium Chloride 1,000 mls @ 100 mls/hr 04/16/21 16:00 Nacl 0.9% 1000 Ml IV DIRECT EDILBERTO Ceftriaxone Sodium 1 gm in 50 mls @ 100 mls/hr 04/16/21 17:00 04/16/21 18:04 Rocephin/Ns 1 Gm/50 Ml IV 100 mls/hr Q24H [facility] Administration Protocol Insulin Human Lispro 0 unit 04/16/21 16:30 04/16/21 22:00 Insulin Lispro 100 Unit/Ml SUB-Q 4 unit ACHS [facility] Administration Protocol Melatonin 5 mg 04/17/21 01:09 04/17/21 01:38 Melatonin 5 Mg Tab PO 5 mg QHS PRN Administration Sleep Morphine Sulfate 4 mg 04/16/21 09:16 Morphine 4 Mg/1 Ml Inj IV Q4H PRN Pain , Severe (7-10) Naloxone HCl 0.1 mg 04/16/21 09:16 Naloxone 0.4 Mg/1 Ml Inj IV Q2MIN PRN Res Rate </= 8 or 02 SAT < 92% Ondansetron HCl 4 mg 04/16/21 09:16 Ondansetron 4 Mg/2 Ml Inj IV Q8H PRN Nausea And Vomiting Oxycodone/Acetaminophen 1 tab 04/16/21 09:16 04/17/21 01:38 Oxycodone /Acetaminophen 5-325mg Tab PO 1 tab Q6H PRN Administration Pain, Moderate (4-6) Sodium Chloride 10 ml 04/16/21 10:00 04/17/21 07:20 Sodium Chloride 0.9% 10 Ml Flush Syringe IV Not Given BID EDILBERTO Sodium Chloride 10 ml 04/16/21 09:16 Sodium Chloride 0.9% 10 Ml Flush Syringe IV PRN PRN LINE FLUSH
[2021-04-17] MEDS: INSULIN LISPRO 100 UNIT/ML SUB-Q SCH ×4 (11:10→23:15)
[2021-04-17] MEDS: AZITHROMYCIN 250 MG TAB PO SCH (11:10)
--- NOTE | 2021-04-17 13:03 | Electrocardiograph Report ---
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
[2021-04-17] MEDS ORDERED: ALBUTEROL 2.5 MG/3 ML NEBU IH PRN (18:00)
[2021-04-17] MEDS: cefTRIAXone/NS 1 GM/50 ML 1 GM/50 ML BAG IV SCH (18:05)
[2021-04-17] MEDS: guaiFENesin 100 MG/5 ML ORAL LIQD PO PRN (19:45)
[2021-04-17] MEDS: GABAPENTIN 300 MG CAP PO SCH (21:38)
[2021-04-17] MEDS: carvediloL 12.5 MG TAB PO SCH (21:40)
[2021-04-17] MEDS: ENOXAPARIN 40 MG/0.4 ML INJ SUB-Q SCH (21:41)
[2021-04-17] MEDS ORDERED: INSULIN GLARGINE 100 UNITS/ML SUB-Q SCH (22:00)
[2021-04-18] MEDS: oxyCODONE /ACETAMINOPHEN 5-325MG TAB PO PRN ×3 (02:09→18:59)
[2021-04-18 06:44] LABS: BUN/Creatinine Ratio 17; Blood Urea Nitrogen 10 mg/dL (9-20); Calcium 8.4 mg/dL (8.4-10.2); Hemolysis Index 4
[2021-04-18] MEDS: ALBUTEROL 8.5 GM MDI INHALATION IH SCH ×2 (09:20→14:31)
[2021-04-18] MEDS: ASPIRIN 81 MG TAB CHEW PO SCH (09:24)
[2021-04-18] MEDS: GABAPENTIN 300 MG CAP PO SCH ×3 (09:24→21:55)
[2021-04-18] MEDS: AZITHROMYCIN 250 MG TAB PO SCH (09:24)
[2021-04-18] MEDS: carvediloL 12.5 MG TAB PO SCH ×2 (09:25→21:55)
[2021-04-18] MEDS: INSULIN LISPRO 100 UNIT/ML SUB-Q SCH ×4 (09:25→21:57)
--- NOTE | 2021-04-18 11:40 | Progress Note ---
Assessment and Plan Assessment and plan: #Acute hypoxic respiratory failure #Pneumonia #Suspected Covid infection -currently on 5L [place], no oxygen requirement at home -CXR shows bilateral infiltrates -patient uses albuterol nebulizer at home, could have underlying COPD or OHS due to size? -COVID PCR collected today -albuterol nebs -continue azithromax and rocephin #Type 2 diabetes with neuropathy -outpatient regimen: detemir 20-25 qhs, metformin 1g BID, glipizide 10mg -continue lantus 25U QHS w/ SSI while inpatient -goal glucose 140-180s -continue gabapentin at home dose #Hypertension -continue carvedilol #Hyperlipidemia -atorvastatin #Obesity -BMI 50.2 -discussed lifestyle modifications (diet, exercise) and the effects of weight loss on overall health. -candidate for bariatric surgery outpatient -high risk for sleep apnea, CPAP at night Disposition Plan: continue management History Interval history: No acute events overnight. Patient reports feeling a little better. Still needing oxygen with exertion. Having back pain due to small bed. No other complaints at this time. Hospitalist Physical - Physical exam Narrative exam: GENERAL: Well-developed well-nourished. Sitting up in bed, in no acute distress. HEENT: Nasal cannula at 5 L/min NECK: Supple. CHEST/LUNGS: Decreased breath sounds bilaterally. HEART/CARDIOVASCULAR: RRR. No murmur, rubs or gallops appreciated. ABDOMEN: Obese. +BS. NT/ND. SKIN: No rashes noted. NEURO: No focal motor deficit. Follows all commands. MUSCULOSKELETAL: No joint effusion EXTREMITIES: No cyanosis, clubbing or edema. PSYCH: Cooperative. - Constitutional Vitals: Temp Pulse Resp BP Pulse Ox 98.6 F 84 16 123/69 91 04/18/21 04:37 04/18/21 09:25 04/18/21 09:20 04/18/21 04:37 04/18/21 09:26 HEART Score - HEART Score Troponin: Troponin T < 0.010 ng/mL (0.00-0.029) 04/16/21 06:47 Results - Labs CBC & Chem 7: 04/17/21 03:20 04/18/21 05:08 Labs: Laboratory Last Values WBC 4.1 K/mm3 (4.5-11.0) L 04/17/21 03:20 RBC 4.46 M/mm3 (3.65-5.03) 04/17/21 03:20 Hgb 11.2 gm/dl (11.8-15.2) L 04/17/21 03:20 Hct 36.0 % (35.5-45.6) 04/17/21 03:20 MCV 81 fl (84-94) L 04/17/21 03:20 MCH 25 pg (28-32) L 04/17/21 03:20 MCHC 31 % (32-34) L 04/17/21 03:20 RDW 16.1 % (13.2-15.2) H 04/17/21 03:20 Plt Count 190 K/mm3 (140-440) 04/17/21 03:20 Lymph % (Auto) 22.2 % (13.4-35.0) 04/17/21 03:20 [place] % (Auto) 10.9 % (0.0-7.3) H 04/17/21 03:20 Eos % (Auto) 0.0 % (0.0-4.3) 04/17/21 03:20 Baso % (Auto) 0.2 % (0.0-1.8) 04/17/21 03:20 Lymph # (Auto) 0.9 K/mm3 (1.2-5.4) L 04/17/21 03:20 [place] # (Auto) 0.5 K/mm3 (0.0-0.8) 04/17/21 03:20 Eos # (Auto) 0.0 K/mm3 (0.0-0.4) 04/17/21 03:20 Baso # (Auto) 0.0 K/mm3 (0.0-0.1) 04/17/21 03:20 Seg Neutrophils % 66.7 % (40.0-70.0) 04/17/21 03:20 Seg Neutrophils # 2.8 K/mm3 (1.8-7.7) 04/17/21 03:20 D-Dimer 295.17 ng/mlDDU (0-234) H 04/16/21 06:47 Sodium 130 mmol/L (137-145) L 04/18/21 05:08 Potassium 4.3 mmol/L (3.6-5.0) 04/18/21 05:08 Chloride 93.5 mmol/L (98-107) L 04/18/21 05:08 Carbon Dioxide 25 mmol/L (22-30) 04/18/21 05:08 Anion Gap 16 mmol/L 04/18/21 05:08 BUN 10 mg/dL (9-20) 04/18/21 05:08 Creatinine 0.6 mg/dL (0.8-1.3) L 04/18/21 05:08 Estimated GFR > 60 ml/min 04/18/21 05:08 BUN/Creatinine Ratio 17 % 04/18/21 05:08 Glucose 242 mg/dL (75-100) H 04/18/21 05:08 POC Glucose 245 mg/dL (70-105) H 04/18/21 08:10 Calcium 8.4 mg/dL (8.4-10.2) 04/18/21 05:08 Total Bilirubin 0.40 mg/dL (0.1-1.2) 04/16/21 06:47 AST 48 units/L (5-40) H 04/16/21 06:47 ALT 33 units/L (7-56) 04/16/21 06:47 Alkaline Phosphatase 58 units/L (35-129) 04/16/21 06:47 Troponin T < 0.010 ng/mL (0.00-0.029) 04/16/21 06:47 C-Reactive Protein 6.00 mg/dL (0.00-1.30) H 04/16/21 06:47 Total Protein 7.2 g/dL (6.3-8.2) 04/16/21 06:47 Albumin 3.8 g/dL (3.9-5) L 04/16/21 06:47 Albumin/Globulin Ratio 1.1 % 04/16/21 06:47 [place]/IV: Voiding Method Toilet Active Medications - Current Medications Current Medications: Generic Name Dose Route Start Last Admin Trade Name Freq PRN Reason Stop Dose Admin Acetaminophen 650 mg 04/16/21 09:16 Acetaminophen 325 Mg Tab PO Q4H PRN Pain MILD(1-3)/Fever >100.5/ADDISON Albuterol 2 puff 04/17/21 08:00 04/18/21 09:20 Albuterol 8.5 Gm Mdi Inhalation IH 2 puff TIDRT EDILBERTO Administration Albuterol 2.5 mg 04/17/21 18:00 Albuterol 2.5 Mg/3 Ml Nebu IH QID PRN Wheezing Aspirin 81 mg 04/18/21 10:00 04/18/21 09:24 Aspirin 81 Mg Tab Chew PO 81 mg QDAY EDILBERTO Administration Atorvastatin Calcium 20 mg 04/17/21 22:00 04/17/21 21:40 Atorvastatin 20 Mg Tab PO 20 mg QHS EDILBERTO Administration Azithromycin 500 mg 04/16/21 17:00 04/18/21 09:24 Azithromycin 250 Mg Tab PO 500 mg QDAY EDILBERTO Administration Protocol Carvedilol 12.5 mg 04/17/21 22:00 04/18/21 09:25 Carvedilol 12.5 Mg Tab PO 12.5 mg BID EDILBERTO Administration Dextrose 50 ml 04/16/21 15:59 Dextrose 50% In Water (25gm) 50 Ml Syringe IV Q30MIN PRN Hypoglycemia Protocol Enoxaparin Sodium 40 mg 04/17/21 22:00 04/17/21 21:41 Enoxaparin 40 Mg/0.4 Ml Inj SUB-Q 40 mg QDAY@2200 EDILBERTO Administration Protocol Gabapentin 300 mg 04/17/21 20:00 04/18/21 09:24 Gabapentin 300 Mg Cap PO 300 mg TID EDILBERTO Administration Guaifenesin 200 mg 04/17/21 18:53 04/17/21 19:45 Guaifenesin 100 Mg/5 Ml Oral Liqd PO 200 mg Q4H PRN Administration Cough Ceftriaxone Sodium 1 gm in 50 mls @ 100 mls/hr 04/16/21 17:00 04/17/21 18:05 Rocephin/Ns 1 Gm/50 Ml IV 100 mls/hr Q24H EDILBERTO Administration Protocol Insulin Glargine 25 units 04/18/21 22:00 Insulin Glargine 100 Units/Ml SUB-Q QHS EDILBERTO Insulin Human Lispro 0 unit 04/16/21 16:30 04/18/21 09:25 Insulin Lispro 100 Unit/Ml SUB-Q 4 unit ACHS EDILBERTO Administration Protocol Melatonin 5 mg 04/17/21 01:09 04/17/21 23:09 Melatonin 5 Mg Tab PO 5 mg QHS PRN Administration Sleep Morphine Sulfate 4 mg 04/16/21 09:16 Morphine 4 Mg/1 Ml Inj IV Q4H PRN Pain , Severe (7-10) Naloxone HCl 0.1 mg 04/16/21 09:16 Naloxone 0.4 Mg/1 Ml Inj IV Q2MIN PRN Res Rate </= 8 or 02 SAT < 92% Ondansetron HCl 4 mg 04/16/21 09:16 Ondansetron 4 Mg/2 Ml Inj IV Q8H PRN Nausea And Vomiting Oxycodone/Acetaminophen 1 tab 04/16/21 09:16 04/18/21 02:09 Oxycodone /Acetaminophen 5-325mg Tab PO 1 tab Q6H PRN Administration Pain, Moderate (4-6) Pneumococcal Polyvalent Vaccine 0.5 ml 04/19/21 12:00 Pneumococcal 23 Valent 0.5 Ml Vial IM 04/19/21 12:01 .ONCE ONE Sodium Chloride 10 ml 04/16/21 10:00 04/18/21 09:26 Sodium Chloride 0.9% 10 Ml Flush Syringe IV 10 ml BID EDILBERTO Administration Sodium Chloride 10 ml 04/16/21 09:16 Sodium Chloride 0.9% 10 Ml Flush Syringe IV PRN PRN LINE FLUSH Nutrition/Malnutrition Assess - Dietary Evaluation Nutrition/Malnutrition Findings: Nutrition Notes Start: 04/18/21 10:40 Freq: Status: Active Protocol: Document 04/18/21 10:40 CW (Rec: 04/18/21 10:56 CW [id number]) Nutrition Notes Need for Assessment 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 Spoke with pt over phone. PO itnake is poor at this time. Pt reports poor appetite x 12 days. UBW is 172 kg, indicating a weight loss of 2%. Pt reports having consumed ONS earlier today and is willing to continue ONS BID. Will reorder. Percent of energy/protein needs met: 26%/35% Burn Absent Trauma Absent GI Symptoms Diarrhea Food Allergy No Current % PO Negligible Minimum of two criteria No Energy Intake (non-severe) <75% Estimated Energy Requirement >7 days #1 Nutrition Diagnosis Inadequate oral intake Etiology covid 19 As Evidenced by Signs and Symptoms poor appetite per pt, 25% intake of meals provided Is patient on ventilator? No Is Patient Ambulatory and/or Out of Bed Yes [facility] [ 3316.677 NUTR.[id number]] Kcal/Kg value to use for calculation 12 Approximate Energy Requirements Using 2013 kcal/Kg Calculation Used for Recommendations Kcal/kg Additional Notes protein: 65 - 81g (0.8 - 1g/ kgIBW) fluid needs: 1 ml/kcal Nutrition Intervention Change Diet Order: Continue current diet as ordered Add Supplement/Snack (indicate name/kcal Glucerna BID /protein ) Provides kCal: 440 Provides Protein (gm) 20 Goal #1 Meet at least 70% of EER Anticipated Discharge Needs: Consistent Carbohydrate Diet Follow-Up By: 04/22/21 Additional Comments F/U for intakes and ONS tolerance
[2021-04-18] MEDS ORDERED: DEXAMETHASONE 4 MG TAB PO SCH (17:00)
[2021-04-18] MEDS: DEXAMETHASONE 4 MG TAB PO SCH (17:26)
[2021-04-18] MEDS: cefTRIAXone/NS 1 GM/50 ML 1 GM/50 ML BAG IV SCH (17:30)
[2021-04-18] MEDS ORDERED: REMDESIVIR 200 MG in SODIUM CHLORIDE 0.9% 250ML 250 ML IV ONE (18:00)
[2021-04-18] MEDS: guaiFENesin 100 MG/5 ML ORAL LIQD PO PRN ×2 (19:01→23:03)
[2021-04-18] MEDS: ENOXAPARIN 40 MG/0.4 ML INJ SUB-Q SCH (21:55)
[2021-04-18] MEDS: INSULIN GLARGINE 100 UNITS/ML SUB-Q SCH (21:57)
[2021-04-18] MEDS: MELATONIN 5 MG TAB PO PRN (23:02)
[2021-04-19] MEDS: SODIUM CHLORIDE 0.9% 50 ML IVPB IV SCH ×2 (01:20→22:01)
[2021-04-19] MEDS: oxyCODONE /ACETAMINOPHEN 5-325MG TAB PO PRN ×3 (01:58→22:02)
[2021-04-19] MEDS: ALBUTEROL 8.5 GM MDI INHALATION IH SCH ×4 (05:14→19:55)
--- NOTE | 2021-04-19 07:29 | Progress Note ---
Assessment and Plan Assessment and plan: #Acute hypoxic respiratory failure #Pneumonia #COVID-19 infection -currently on 5L NC, no oxygen requirement at home -CXR shows bilateral infiltrates -patient uses albuterol nebulizer at home, could have underlying COPD or OHS due to size? -COVID PCR positive 04/18/21 -continue dexamethasone and remdesivir -patient feeling better, home O2 eval ordered for possible discharge tomorrow if patient continues to clinically improve -albuterol nebs -continue azithromax and rocephin #Type 2 diabetes with neuropathy -outpatient regimen: detemir 20-25 qhs, metformin 1g BID, glipizide 10mg -continue lantus 25U QHS w/ SSI while inpatient -goal glucose 140-180s -continue gabapentin at home dose #Hypertension -continue carvedilol #Hyperlipidemia -atorvastatin #Obesity -BMI 50.2 -discussed lifestyle modifications (diet, exercise) and the effects of weight loss on overall health. -candidate for bariatric surgery outpatient -high risk for sleep apnea, CPAP at night Disposition Plan: continue medical management History Interval history: No acute events overnight. Able to sleep last night. Has noticed improvement of his dyspnea on exertion. Has taken off oxygen to walk to the bathroom, and was noted to have hypoxia. No complaints at this time. Hospitalist Physical - Physical exam Narrative exam: GENERAL: Well-developed well-nourished. Sitting up in bed, in no acute distress. HEENT: Nasal cannula at 5 L/min NECK: Supple. CHEST/LUNGS: Decreased breath sounds bilaterally. HEART/CARDIOVASCULAR: RRR. No murmur, rubs or gallops appreciated. ABDOMEN: Obese. +BS. NT/ND. SKIN: No rashes noted. NEURO: No focal motor deficit. Follows all commands. MUSCULOSKELETAL: No joint effusion EXTREMITIES: No cyanosis, clubbing or edema. PSYCH: Cooperative. - Constitutional Vitals: Temp Pulse Resp BP Pulse Ox 98.4 F 70 18 115/69 92 04/19/21 06:15 04/19/21 06:15 04/19/21 06:15 04/19/21 06:15 04/19/21 06:15 HEART Score - HEART Score Troponin: Troponin T < 0.010 ng/mL (0.00-0.029) 04/16/21 06:47 Results - Labs CBC & Chem 7: 04/17/21 03:20 04/19/21 10:14 Labs: Laboratory Last Values WBC 4.1 K/mm3 (4.5-11.0) L 04/17/21 03:20 RBC 4.46 M/mm3 (3.65-5.03) 04/17/21 03:20 Hgb 11.2 gm/dl (11.8-15.2) L 04/17/21 03:20 Hct 36.0 % (35.5-45.6) 04/17/21 03:20 MCV 81 fl (84-94) L 04/17/21 03:20 MCH 25 pg (28-32) L 04/17/21 03:20 MCHC 31 % (32-34) L 04/17/21 03:20 RDW 16.1 % (13.2-15.2) H 04/17/21 03:20 Plt Count 190 K/mm3 (140-440) 04/17/21 03:20 Lymph % (Auto) 22.2 % (13.4-35.0) 04/17/21 03:20 Ritchie % (Auto) 10.9 % (0.0-7.3) H 04/17/21 03:20 Eos % (Auto) 0.0 % (0.0-4.3) 04/17/21 03:20 Baso % (Auto) 0.2 % (0.0-1.8) 04/17/21 03:20 Lymph # (Auto) 0.9 K/mm3 (1.2-5.4) L 04/17/21 03:20 Ritchie # (Auto) 0.5 K/mm3 (0.0-0.8) 04/17/21 03:20 Eos # (Auto) 0.0 K/mm3 (0.0-0.4) 04/17/21 03:20 Baso # (Auto) 0.0 K/mm3 (0.0-0.1) 04/17/21 03:20 Seg Neutrophils % 66.7 % (40.0-70.0) 04/17/21 03:20 Seg Neutrophils # 2.8 K/mm3 (1.8-7.7) 04/17/21 03:20 D-Dimer 295.17 ng/mlDDU (0-234) H 04/16/21 06:47 Sodium 130 mmol/L (137-145) L 04/18/21 05:08 Potassium 4.3 mmol/L (3.6-5.0) 04/18/21 05:08 Chloride 93.5 mmol/L (98-107) L 04/18/21 05:08 Carbon Dioxide 25 mmol/L (22-30) 04/18/21 05:08 Anion Gap 16 mmol/L 04/18/21 05:08 BUN 10 mg/dL (9-20) 04/18/21 05:08 Creatinine 0.6 mg/dL (0.8-1.3) L 04/18/21 05:08 Estimated GFR > 60 ml/min 04/18/21 05:08 BUN/Creatinine Ratio 17 % 04/18/21 05:08 Glucose 242 mg/dL (75-100) H 04/18/21 05:08 POC Glucose 288 mg/dL (70-105) H 04/18/21 21:15 Calcium 8.4 mg/dL (8.4-10.2) 04/18/21 05:08 Total Bilirubin 0.40 mg/dL (0.1-1.2) 04/16/21 06:47 AST 48 units/L (5-40) H 04/16/21 06:47 ALT 33 units/L (7-56) 04/16/21 06:47 Alkaline Phosphatase 58 units/L (35-129) 04/16/21 06:47 Troponin T < 0.010 ng/mL (0.00-0.029) 04/16/21 06:47 C-Reactive Protein 6.00 mg/dL (0.00-1.30) H 04/16/21 06:47 Total Protein 7.2 g/dL (6.3-8.2) 04/16/21 06:47 Albumin 3.8 g/dL (3.9-5) L 04/16/21 06:47 Albumin/Globulin Ratio 1.1 % 04/16/21 06:47 Coronavirus (PCR) Positive (Negative) A 04/18/21 10:00 Smith/IV: Voiding Method Urinal Active Medications - Current Medications Current Medications: Generic Name Dose Route Start Last Admin Trade Name Freq PRN Reason Stop Dose Admin Acetaminophen 650 mg 04/16/21 09:16 Acetaminophen 325 Mg Tab PO Q4H PRN Pain MILD(1-3)/Fever >100.5/ADDISON Albuterol 2 puff 04/17/21 08:00 04/19/21 05:14 Albuterol 8.5 Gm Mdi Inhalation IH Not Given TIDRT EDILBERTO Albuterol 2.5 mg 04/17/21 18:00 Albuterol 2.5 Mg/3 Ml Nebu IH QID PRN Wheezing Aspirin 81 mg 04/18/21 10:00 04/18/21 09:24 Aspirin 81 Mg Tab Chew PO 81 mg QDAY EDILBERTO Administration Atorvastatin Calcium 20 mg 04/17/21 22:00 04/18/21 21:55 Atorvastatin 20 Mg Tab PO 20 mg QHS EDILBERTO Administration Azithromycin 500 mg 04/16/21 17:00 04/18/21 09:24 Azithromycin 250 Mg Tab PO 500 mg QDAY EDILBERTO Administration Protocol Carvedilol 12.5 mg 04/17/21 22:00 04/18/21 21:55 Carvedilol 12.5 Mg Tab PO 12.5 mg BID EDILBERTO Administration Dexamethasone 6 mg 04/18/21 17:00 04/18/21 17:26 Dexamethasone 4 Mg Tab PO 6 mg QDAY EDILBERTO Administration Dextrose 50 ml 04/16/21 15:59 Dextrose 50% In Water (25gm) 50 Ml Syringe IV Q30MIN PRN Hypoglycemia Protocol Enoxaparin Sodium 40 mg 04/17/21 22:00 04/18/21 21:55 Enoxaparin 40 Mg/0.4 Ml Inj SUB-Q 40 mg QDAY@2200 EDILBERTO Administration Protocol Gabapentin 300 mg 04/17/21 20:00 04/18/21 21:55 Gabapentin 300 Mg Cap PO 300 mg TID EDILBERTO Administration Guaifenesin 200 mg 04/17/21 18:53 04/18/21 23:03 Guaifenesin 100 Mg/5 Ml Oral Liqd PO 200 mg Q4H PRN Administration Cough Ceftriaxone Sodium 1 gm in 50 mls @ 100 mls/hr 04/16/21 17:00 04/18/21 17:30 Rocephin/Ns 1 Gm/50 Ml IV 100 mls/hr Q24H EDILBERTO Administration Protocol REMDESIVIR 100 mg/ Sodium 250 mls @ 500 mls/hr 04/19/21 21:00 Chloride IV 04/22/21 21:29 Q24HR@2100 [facility] Insulin Glargine 25 units 04/18/21 22:00 04/18/21 21:57 Insulin Glargine 100 Units/Ml SUB-Q 25 units QHS [facility] Administration Insulin Human Lispro 0 unit 04/16/21 16:30 04/18/21 21:57 Insulin Lispro 100 Unit/Ml SUB-Q 4 unit ACHS [facility] Administration Protocol Melatonin 5 mg 04/17/21 01:09 04/18/21 23:02 Melatonin 5 Mg Tab PO 5 mg QHS PRN Administration Sleep Morphine Sulfate 4 mg 04/16/21 09:16 Morphine 4 Mg/1 Ml Inj IV Q4H PRN Pain , Severe (7-10) Naloxone HCl 0.1 mg 04/16/21 09:16 Naloxone 0.4 Mg/1 Ml Inj IV Q2MIN PRN Res Rate </= 8 or 02 SAT < 92% Ondansetron HCl 4 mg 04/16/21 09:16 Ondansetron 4 Mg/2 Ml Inj IV Q8H PRN Nausea And Vomiting Oxycodone/Acetaminophen 1 tab 04/16/21 09:16 04/19/21 01:58 Oxycodone /Acetaminophen 5-325mg Tab PO 1 tab Q6H PRN Administration Pain, Moderate (4-6) Pneumococcal Polyvalent Vaccine 0.5 ml 04/19/21 12:00 Pneumococcal 23 Valent 0.5 Ml Vial IM 04/19/21 12:01 .ONCE ONE Sodium Chloride 10 ml 04/16/21 10:00 04/18/21 21:57 Sodium Chloride 0.9% 10 Ml Flush Syringe IV 10 ml BID EDILBERTO Administration Sodium Chloride 10 ml 04/16/21 09:16 Sodium Chloride 0.9% 10 Ml Flush Syringe IV PRN PRN LINE FLUSH Sodium Chloride 50 ml 04/18/21 18:00 04/19/21 01:20 Sodium Chloride 0.9% 50 Ml Ivpb IV 04/22/21 21:01 Not Given Q24HR@2100 [facility] Nutrition/Malnutrition Assess - Dietary Evaluation Nutrition/Malnutrition Findings: Nutrition Notes Start: 04/18/21 10:40 Freq: Status: Active Protocol: Document 04/18/21 10:40 CW (Rec: 04/18/21 10:56 CW [id number]) Nutrition Notes Need for Assessment generated from: hydrologic modeler Initial or Follow up Assessment Current Diagnosis Diabetes,Hypertension Other Pertinent Diagnosis Covid 19, pneu Current Diet Consistent Carbohydrate Labs/Tests BG 242 Pertinent Medications Humalog Height 6 ft Weight 167.829 kg Usual Body Weight 172 kg [place] Body Weight (kg) 80.90 BMI 50.1 Weight change and time frame -2% Weight Status Morbidly Obese Subjective/Other Information MD ordered ONS but has since been cancelled. Spoke with pt over phone. PO itnake is poor at this time. Pt reports poor appetite x 12 days. UBW is 172 kg, indicating a weight loss of 2%. Pt reports having consumed ONS earlier today and is willing to continue ONS BID. Will reorder. Percent of energy/protein needs met: 26%/35% Burn Absent Trauma Absent GI Symptoms Diarrhea Food Allergy No Current % PO Negligible Minimum of two criteria No Energy Intake (non-severe) <75% Estimated Energy Requirement >7 days #1 Nutrition Diagnosis Inadequate oral intake Etiology covid 19 As Evidenced by Signs and Symptoms poor appetite per pt, 25% intake of meals provided Is patient on ventilator? No Is Patient Ambulatory and/or Out of Bed Yes [facility] [ 3316.677 NUTR.MSJOOB] Kcal/Kg value to use for calculation 12 Approximate Energy Requirements Using 2014 kcal/Kg Calculation Used for Recommendations Kcal/kg Additional Notes protein: 65 - 81g (0.8 - 1g/ kgIBW) fluid needs: 1 ml/kcal Nutrition Intervention Change Diet Order: Continue current diet as ordered Add Supplement/Snack (indicate name/kcal Glucerna BID /protein ) Provides kCal: 440 Provides Protein (gm) 20 Goal #1 Meet at least 70% of EER Anticipated Discharge Needs: Consistent Carbohydrate Diet Follow-Up By: 04/22/21 Additional Comments F/U for intakes and ONS tolerance
[2021-04-19] MEDS: GABAPENTIN 300 MG CAP PO SCH ×3 (08:33→22:00)
[2021-04-19] MEDS: INSULIN LISPRO 100 UNIT/ML SUB-Q SCH ×4 (08:33→22:01)
[2021-04-19] MEDS: ASPIRIN 81 MG TAB CHEW PO SCH (09:04)
[2021-04-19] MEDS: AZITHROMYCIN 250 MG TAB PO SCH (09:04)
[2021-04-19] MEDS: DEXAMETHASONE 4 MG TAB PO SCH (09:04)
[2021-04-19] MEDS: carvediloL 12.5 MG TAB PO SCH ×2 (09:05→21:59)
[2021-04-19] MEDS ORDERED: PNEUMOCOCCAL 23 Valent 0.5 ML VIAL IM ONE (12:00)
[2021-04-19 12:32] LABS: C-Reactive Protein 9.9 mg/dL (0.00-1.30)
[2021-04-19 12:49] LABS: Alanine Aminotransferase 39 units/L (7-56); Albumin 3.5 g/dL (3.9-5); Blood Urea Nitrogen 12 mg/dL (9-20); Calcium 8.9 mg/dL (8.4-10.2); Hemolysis Index 7
[2021-04-19 12:53] LABS: BUN/Creatinine Ratio 20
[2021-04-19] MEDS: cefTRIAXone/NS 1 GM/50 ML 1 GM/50 ML BAG IV SCH (16:57)
[2021-04-19] MEDS: ENOXAPARIN 40 MG/0.4 ML INJ SUB-Q SCH (22:00)
[2021-04-19] MEDS: MELATONIN 5 MG TAB PO PRN (22:00)
[2021-04-19] MEDS: INSULIN GLARGINE 100 UNITS/ML SUB-Q SCH (22:00)
[2021-04-19] MEDS: REMDESIVIR 100 MG in SODIUM CHLORIDE 0.9% 250ML 250 ML IV SCH (22:01)
[2021-04-19] MEDS: guaiFENesin 100 MG/5 ML ORAL LIQD PO PRN (22:02)
--- NOTE | 2021-04-20 07:56 | Progress Note ---
Assessment and Plan Assessment and plan: Per nursing and respiratory therapy, patient has been refusing certain interventions. Due to hypoxia, high flow nasal cannula was offered since patient refuses to wear anything with the mask. He stated that he will refuse to wear anything "pushing too much oxygen". I explained to the patient that not allowing us to treat him could result in . --Acute hypoxic respiratory failure Patient is on 6 L of nasal cannula oxygen 6 L/44% FiO2/95% O2 sats Wean as tolerated, home O2 evaluation prior to discharge Prone positioning --Multifocal pneumonia; Continue empiric antibiotics Check procalcitonin, if normal DC antibiotics Follow cultures --COVID-19 infection -currently on 6 L NC, home O2 eval prior to discharge -CXR shows bilateral infiltrates -patient uses albuterol nebulizer at home, could have underlying COPD or OHS due to size? -COVID PCR positive 04/18/21 -continue dexamethasone 10 days and remdesivir 5 days -patient feeling better, home O2 eval ordered for possible discharge tomorrow if patient continues to clinically improve -albuterol nebs -continue azithromax and rocephin --Type 2 diabetes with neuropathy -outpatient regimen: detemir 20-25 qhs, metformin 1g BID, glipizide 10mg -continue lantus 25U QHS w/ SSI while inpatient -goal glucose 140-180s, uncontrolled blood sugars partly due to steroids -continue gabapentin at home dose --Hypertension/well controlled -continue carvedilol --Hyperlipidemia/low-cholesterol diet -atorvastatin --Obesity/BMI 50.2 Advised dietary modification exercise as tolerated and weight reduction when me dically stable -discussed lifestyle modifications (diet, exercise) and the effects of weight loss on overall health. Advised bariatric surgery consultation for weight reduction program as outpatient --Possible obstructive sleep apnea; Advised outpatient pulmonary for sleep study to rule out KENDRICK To set up CPAP BiPAP at night and as needed during the day --DVT prophylaxis Subcu Lovenox We will closely monitor the patient and adjust management as needed We will discuss the plan of care with the patient and his nurse Disposition Plan: continue medical management We will try to wean nasal cannula oxygen from 6L to 3 to 4 L Set up home oxygen prior to discharge History Interval history: I have seen and examined the patient at the bedside Patient's chart and medications reviewed Patient feels slightly better anxious to go home Patient is requiring 6 L of nasal cannula oxygen Hospitalist Physical - Constitutional Vitals: Temp Pulse Resp BP Pulse Ox 98.4 F 62 18 125/73 94 04/20/21 04:54 04/20/21 04:54 04/20/21 04:54 04/20/21 04:54 04/20/21 04:54 General appearance: Present: mild distress, well-nourished, obese - EENT Eyes: Present: PERRL, EOM intact - Neck Neck: Present: supple, normal ROM - Respiratory Respiratory effort: labored Respiratory: bilateral: diminished, rhonchi, negative: rales, wheezing - Cardiovascular Rhythm: regular Heart Sounds: Present: S1 & S2 - Extremities Extremities: no ischemia, No edema - Abdominal General gastrointestinal: soft, non-tender, non-distended, normal bowel sounds - Integumentary Integumentary: Present: clear, warm - Psychiatric Psychiatric: appropriate mood/affect, cooperative - Neurologic Neurologic: CNII-XII intact, moves all extremities HEART Score - HEART Score Troponin: Troponin T < 0.010 ng/mL (0.00-0.029) 04/16/21 06:47 Results - Labs CBC & Chem 7: 04/17/21 03:20 04/20/21 07:48 Labs: Laboratory Last Values WBC 4.1 K/mm3 (4.5-11.0) L 04/17/21 03:20 RBC 4.46 M/mm3 (3.65-5.03) 04/17/21 03:20 Hgb 11.2 gm/dl (11.8-15.2) L 04/17/21 03:20 Hct 36.0 % (35.5-45.6) 04/17/21 03:20 MCV 81 fl (84-94) L 04/17/21 03:20 MCH 25 pg (28-32) L 04/17/21 03:20 MCHC 31 % (32-34) L 04/17/21 03:20 RDW 16.1 % (13.2-15.2) H 04/17/21 03:20 Plt Count 190 K/mm3 (140-440) 04/17/21 03:20 Lymph % (Auto) 22.2 % (13.4-35.0) 04/17/21 03:20 Person % (Auto) 10.9 % (0.0-7.3) H 04/17/21 03:20 Eos % (Auto) 0.0 % (0.0-4.3) 04/17/21 03:20 Baso % (Auto) 0.2 % (0.0-1.8) 04/17/21 03:20 Lymph # (Auto) 0.9 K/mm3 (1.2-5.4) L 04/17/21 03:20 Person # (Auto) 0.5 K/mm3 (0.0-0.8) 04/17/21 03:20 Eos # (Auto) 0.0 K/mm3 (0.0-0.4) 04/17/21 03:20 Baso # (Auto) 0.0 K/mm3 (0.0-0.1) 04/17/21 03:20 Seg Neutrophils % 66.7 % (40.0-70.0) 04/17/21 03:20 Seg Neutrophils # 2.8 K/mm3 (1.8-7.7) 04/17/21 03:20 D-Dimer 298.94 ng/mlDDU (0-234) H 04/19/21 10:14 Sodium 135 mmol/L (137-145) L 04/19/21 10:14 Potassium 4.4 mmol/L (3.6-5.0) 04/19/21 10:14 Chloride 96.0 mmol/L (98-107) L 04/19/21 10:14 Carbon Dioxide 22 mmol/L (22-30) 04/19/21 10:14 Anion Gap 21 mmol/L 04/19/21 10:14 BUN 12 mg/dL (9-20) 04/19/21 10:14 Creatinine 0.6 mg/dL (0.8-1.3) L 04/19/21 10:14 Estimated GFR > 60 ml/min 04/19/21 10:14 BUN/Creatinine Ratio 20 % 04/19/21 10:14 Glucose 271 mg/dL (75-100) H 04/19/21 10:14 Glucose 272 mg/dL (75-100) H 04/19/21 10:14 POC Glucose 235 mg/dL (70-105) H 04/20/21 07:33 Calcium 8.9 mg/dL (8.4-10.2) 04/19/21 10:14 Ferritin 141.4 ng/mL (30.0-300.0) 04/19/21 10:14 Total Bilirubin 0.40 mg/dL (0.1-1.2) 04/19/21 10:14 AST 48 units/L (5-40) H 04/19/21 10:14 ALT 39 units/L (7-56) 04/19/21 10:14 Alkaline Phosphatase 52 units/L (35-129) 04/19/21 10:14 Lactate Dehydrogenase 370 units/L (91-180) H 04/19/21 10:14 Troponin T < 0.010 ng/mL (0.00-0.029) 04/16/21 06:47 C-Reactive Protein 9.90 mg/dL (0.00-1.30) H 04/19/21 10:14 Total Protein 7.0 g/dL (6.3-8.2) 04/19/21 10:14 Albumin 3.5 g/dL (3.9-5) L 04/19/21 10:14 Albumin/Globulin Ratio 1.0 % 04/19/21 10:14 Coronavirus (PCR) Positive (Negative) A 04/18/21 10:00 Smith/IV: Voiding Method Urinal Active Medications - Current Medications Current Medications: Generic Name Dose Route Start Last Admin Trade Name Freq PRN Reason Stop Dose Admin Acetaminophen 650 mg 04/16/21 09:16 Acetaminophen 325 Mg Tab PO Q4H PRN Pain MILD(1-3)/Fever >100.5/ADDISON Albuterol 2 puff 04/17/21 08:00 04/19/21 19:55 Albuterol 8.5 Gm Mdi Inhalation IH 2 puff TIDRT EDILBERTO Administration Albuterol 2.5 mg 04/17/21 18:00 Albuterol 2.5 Mg/3 Ml Nebu IH QID PRN Wheezing Aspirin 81 mg 04/18/21 10:00 04/19/21 09:04 Aspirin 81 Mg Tab Chew PO 81 mg QDAY EDILBERTO Administration Atorvastatin Calcium 20 mg 04/17/21 22:00 04/19/21 22:00 Atorvastatin 20 Mg Tab PO 20 mg QHS EDILBERTO Administration Azithromycin 500 mg 04/16/21 17:00 04/19/21 09:04 Azithromycin 250 Mg Tab PO 500 mg QDAY EDILBERTO Administration Protocol Carvedilol 12.5 mg 04/17/21 22:00 04/19/21 21:59 Carvedilol 12.5 Mg Tab PO 12.5 mg BID EDILBERTO Administration Dexamethasone 6 mg 04/18/21 17:00 04/19/21 09:04 Dexamethasone 4 Mg Tab PO 6 mg QDAY EDILBERTO Administration Dextrose 50 ml 04/16/21 15:59 Dextrose 50% In Water (25gm) 50 Ml Syringe IV Q30MIN PRN Hypoglycemia Protocol Enoxaparin Sodium 40 mg 04/17/21 22:00 04/19/21 22:00 Enoxaparin 40 Mg/0.4 Ml Inj SUB-Q 40 mg QDAY@2200 EDILBERTO Administration Protocol Gabapentin 300 mg 04/17/21 20:00 04/19/21 22:00 Gabapentin 300 Mg Cap PO 300 mg TID EDILBERTO Administration Guaifenesin 200 mg 04/17/21 18:53 04/19/21 22:02 Guaifenesin 100 Mg/5 Ml Oral Liqd PO 200 mg Q4H PRN Administration Cough Ceftriaxone Sodium 1 gm in 50 mls @ 100 mls/hr 04/16/21 17:00 04/19/21 16:57 Rocephin/Ns 1 Gm/50 Ml IV 100 mls/hr Q24H EDILBERTO Administration Protocol REMDESIVIR 100 mg/ Sodium 250 mls @ 500 mls/hr 04/19/21 21:00 04/19/21 22:01 Chloride IV 04/22/21 21:29 500 mls/hr Q24HR@2100 EDILBERTO Administration Insulin Glargine 25 units 04/18/21 22:00 04/19/21 22:00 Insulin Glargine 100 Units/Ml SUB-Q 25 units QHS EDILBERTO Administration Insulin Human Lispro 0 unit 04/16/21 16:30 04/19/21 22:01 Insulin Lispro 100 Unit/Ml SUB-Q 4 unit ACHS EDILBERTO Administration Protocol Melatonin 5 mg 04/17/21 01:09 04/19/21 22:00 Melatonin 5 Mg Tab PO 5 mg QHS PRN Administration Sleep Morphine Sulfate 4 mg 04/16/21 09:16 Morphine 4 Mg/1 Ml Inj IV Q4H PRN Pain , Severe (7-10) Naloxone HCl 0.1 mg 04/16/21 09:16 Naloxone 0.4 Mg/1 Ml Inj IV Q2MIN PRN Res Rate </= 8 or 02 SAT < 92% Ondansetron HCl 4 mg 04/16/21 09:16 Ondansetron 4 Mg/2 Ml Inj IV Q8H PRN Nausea And Vomiting Oxycodone/Acetaminophen 1 tab 04/16/21 09:16 04/19/21 22:02 Oxycodone /Acetaminophen 5-325mg Tab PO 1 tab Q6H PRN Administration Pain, Moderate (4-6) Sodium Chloride 10 ml 04/16/21 10:00 04/19/21 22:02 Sodium Chloride 0.9% 10 Ml Flush Syringe IV 10 ml BID EDILBERTO Administration Sodium Chloride 10 ml 04/16/21 09:16 Sodium Chloride 0.9% 10 Ml Flush Syringe IV PRN PRN LINE FLUSH Sodium Chloride 50 ml 04/18/21 18:00 04/19/21 22:01 Sodium Chloride 0.9% 50 Ml Ivpb IV 04/22/21 21:01 50 ml Q24HR@2100 EDILBERTO Administration Nutrition/Malnutrition Assess - Dietary Evaluation Nutrition/Malnutrition Findings: Nutrition Notes Start: 04/18/21 10:40 Freq: Status: Active Protocol: Document 04/18/21 10:40 CW (Rec: 04/18/21 10:56 CW [id number]) Nutrition Notes Need for Assessment generated from: campaign management specialist Initial or Follow up Assessment Current Diagnosis Diabetes,Hypertension Other Pertinent Diagnosis Covid 19, pneu Current Diet Consistent Carbohydrate Labs/Tests BG 242 Pertinent Medications Humalog Height 6 ft Weight 167.829 kg Usual Body Weight 172 kg [place] Body Weight (kg) 80.90 BMI 50.1 Weight change and time frame -2% Weight Status Morbidly Obese Subjective/Other Information MD ordered ONS but has since been cancelled. Spoke with pt over phone. PO itnake is poor at this time. Pt reports poor appetite x 12 days. UBW is 172 kg, indicating a weight loss of 2%. Pt reports having consumed ONS earlier today and is willing to continue ONS BID. Will reorder. Percent of energy/protein needs met: 26%/35% Burn Absent Trauma Absent GI Symptoms Diarrhea Food Allergy No Current % PO Negligible Minimum of two criteria No Energy Intake (non-severe) <75% Estimated Energy Requirement >7 days #1 Nutrition Diagnosis Inadequate oral intake Etiology covid 19 As Evidenced by Signs and Symptoms poor appetite per pt, 25% intake of meals provided Is patient on ventilator? No Is Patient Ambulatory and/or Out of Bed Yes REE-([facility]-ambulatory/OOB) [ 3316.677 NUTR.MSJOOB] Kcal/Kg value to use for calculation 12 Approximate Energy Requirements Using 2013 kcal/Kg Calculation Used for Recommendations Kcal/kg Additional Notes protein: 65 - 81g (0.8 - 1g/ kgIBW) fluid needs: 1 ml/kcal Nutrition Intervention Change Diet Order: Continue current diet as ordered Add Supplement/Snack (indicate name/kcal Glucerna BID /protein ) Provides kCal: 440 Provides Protein (gm) 20 Goal #1 Meet at least 70% of EER Anticipated Discharge Needs: Consistent Carbohydrate Diet Follow-Up By: 04/22/21 Additional Comments F/U for intakes and ONS tolerance
[2021-04-20] MEDS: GABAPENTIN 300 MG CAP PO SCH ×3 (08:39→22:28)
[2021-04-20] MEDS: INSULIN LISPRO 100 UNIT/ML SUB-Q SCH ×5 (08:39→23:30)
[2021-04-20] MEDS: oxyCODONE /ACETAMINOPHEN 5-325MG TAB PO PRN ×2 (08:41→18:23)
[2021-04-20] MEDS: AZITHROMYCIN 250 MG TAB PO SCH ×2 (08:43→12:56)
[2021-04-20] MEDS: DEXAMETHASONE 4 MG TAB PO SCH ×2 (08:43→12:58)
[2021-04-20] MEDS: carvediloL 12.5 MG TAB PO SCH ×3 (08:44→22:31)
[2021-04-20] MEDS: ASPIRIN 81 MG TAB CHEW PO SCH ×2 (08:44→12:57)
[2021-04-20 09:05] LABS: Alanine Aminotransferase 36 units/L (7-56); Albumin 3.6 g/dL (3.9-5); Blood Urea Nitrogen 15 mg/dL (9-20); Calcium 8.8 mg/dL (8.4-10.2); Hemolysis Index 7
[2021-04-20 09:17] LABS: BUN/Creatinine Ratio 25
[2021-04-20] MEDS: ALBUTEROL 8.5 GM MDI INHALATION IH SCH ×3 (09:34→19:40)
[2021-04-20] MEDS: cefTRIAXone/NS 1 GM/50 ML 1 GM/50 ML BAG IV SCH (17:28)
[2021-04-20] MEDS: guaiFENesin 100 MG/5 ML ORAL LIQD PO PRN ×2 (18:23→22:32)
[2021-04-20] MEDS: MELATONIN 5 MG TAB PO PRN (22:26)
[2021-04-20] MEDS: REMDESIVIR 100 MG in SODIUM CHLORIDE 0.9% 250ML 250 ML IV SCH (22:27)
[2021-04-20] MEDS: ENOXAPARIN 40 MG/0.4 ML INJ SUB-Q SCH (22:27)
[2021-04-20] MEDS: INSULIN GLARGINE 100 UNITS/ML SUB-Q SCH (22:28)
[2021-04-20] MEDS: SODIUM CHLORIDE 0.9% 50 ML IVPB IV SCH (22:55)
[2021-04-21] MEDS: oxyCODONE /ACETAMINOPHEN 5-325MG TAB PO PRN ×4 (00:10→21:50)
[2021-04-21] MEDS: guaiFENesin 100 MG/5 ML ORAL LIQD PO PRN ×3 (05:48→19:10)
--- NOTE | 2021-04-21 08:21 | Progress Note ---
Assessment and Plan Assessment and plan: Today patient is on Ventimask with 15 L of oxygen, 50% FiO2 and saturating 98% Patient is on dexamethasone remdesivir per protocol, pulmonary following, refusing some therapie --Acute hypoxic respiratory failure Patient is on Ventimask settings as above Wean as tolerated, home O2 evaluation prior to discharge Prone positioning --Multifocal pneumonia; Continue empiric antibiotics Check procalcitonin, if normal DC antibiotics Follow cultures --COVID-19 infection -currently on 6 L NC, home O2 eval prior to discharge -CXR shows bilateral infiltrates -patient uses albuterol nebulizer at home, could have underlying COPD or OHS due to size? -COVID PCR positive 04/18/21 -continue dexamethasone 10 days and remdesivir 5 days -patient feeling better, home O2 eval ordered for possible discharge tomorrow if patient continues to clinically improve -albuterol nebs -continue azithromax and rocephin --Type 2 diabetes with neuropathy -outpatient regimen: detemir 20-25 qhs, metformin 1g BID, glipizide 10mg -continue lantus 25U QHS w/ SSI while inpatient -goal glucose 140-180s, uncontrolled blood sugars partly due to steroids -continue gabapentin at home dose --Hypertension/well controlled -continue carvedilol --Hyperlipidemia/low-cholesterol diet -atorvastatin --Obesity/BMI 50.2 Advised dietary modification exercise as tolerated and weight reduction when m edically stable -discussed lifestyle modifications (diet, exercise) and the effects of weight loss on overall health. Advised bariatric surgery consultation for weight reduction program as outpatient --Possible obstructive sleep apnea; Advised outpatient pulmonary for sleep study to rule out KENDRICK To set up CPAP BiPAP at night and as needed during the day --DVT prophylaxis Subcu Lovenox We will closely monitor the patient and adjust management as needed We will discuss the plan of care with the patient and his nurse Disposition Plan: continue medical management We will try to wean nasal cannula oxygen from 6L to 3 to 4 L Set up home oxygen prior to discharge 04/21/2021; Ventimask 15 L/50%/93 o2 sat/morbid obesity Guarded prognosis History Interval history: I have seen and examined the patient at the bedside, isolation precautions PPE protocols strictly followed Patient continues to be on Ventimask In mild distress Hospitalist Physical - Constitutional Vitals: Temp Pulse Resp BP Pulse Ox 97.7 F 66 20 112/62 98 04/21/21 05:12 04/21/21 05:12 04/21/21 05:12 04/21/21 05:12 04/21/21 06:20 General appearance: Present: mild distress, well-nourished, obese - EENT Eyes: Present: PERRL, EOM intact - Neck Neck: Present: supple, normal ROM - Cardiovascular Rhythm: regular Heart Sounds: Present: S1 & S2 - Extremities Extremities: no ischemia, pulses intact - Abdominal General gastrointestinal: soft, non-tender, non-distended, normal bowel sounds - Integumentary Integumentary: Present: clear, warm - Psychiatric Psychiatric: appropriate mood/affect, cooperative - Neurologic Neurologic: CNII-XII intact, moves all extremities HEART Score - HEART Score Troponin: Troponin T < 0.010 ng/mL (0.00-0.029) 04/16/21 06:47 Results - Labs CBC & Chem 7: 04/17/21 03:20 04/21/21 08:38 Labs: Laboratory Last Values WBC 4.1 K/mm3 (4.5-11.0) L 04/17/21 03:20 RBC 4.46 M/mm3 (3.65-5.03) 04/17/21 03:20 Hgb 11.2 gm/dl (11.8-15.2) L 04/17/21 03:20 Hct 36.0 % (35.5-45.6) 04/17/21 03:20 MCV 81 fl (84-94) L 04/17/21 03:20 MCH 25 pg (28-32) L 04/17/21 03:20 MCHC 31 % (32-34) L 04/17/21 03:20 RDW 16.1 % (13.2-15.2) H 04/17/21 03:20 Plt Count 190 K/mm3 (140-440) 04/17/21 03:20 Lymph % (Auto) 22.2 % (13.4-35.0) 04/17/21 03:20 [place] % (Auto) 10.9 % (0.0-7.3) H 04/17/21 03:20 Eos % (Auto) 0.0 % (0.0-4.3) 04/17/21 03:20 Baso % (Auto) 0.2 % (0.0-1.8) 04/17/21 03:20 Lymph # (Auto) 0.9 K/mm3 (1.2-5.4) L 04/17/21 03:20 [place] # (Auto) 0.5 K/mm3 (0.0-0.8) 04/17/21 03:20 Eos # (Auto) 0.0 K/mm3 (0.0-0.4) 04/17/21 03:20 Baso # (Auto) 0.0 K/mm3 (0.0-0.1) 04/17/21 03:20 Seg Neutrophils % 66.7 % (40.0-70.0) 04/17/21 03:20 Seg Neutrophils # 2.8 K/mm3 (1.8-7.7) 04/17/21 03:20 D-Dimer 298.94 ng/mlDDU (0-234) H 04/19/21 10:14 Sodium 136 mmol/L (137-145) L 04/20/21 07:48 Potassium 4.5 mmol/L (3.6-5.0) 04/20/21 07:48 Chloride 96.2 mmol/L (98-107) L 04/20/21 07:48 Carbon Dioxide 25 mmol/L (22-30) 04/20/21 07:48 Anion Gap 19 mmol/L 04/20/21 07:48 BUN 15 mg/dL (9-20) 04/20/21 07:48 Creatinine 0.6 mg/dL (0.8-1.3) L 04/20/21 07:48 Estimated GFR > 60 ml/min 04/20/21 07:48 BUN/Creatinine Ratio 25 % 04/20/21 07:48 Glucose 297 mg/dL (75-100) H 04/20/21 07:48 POC Glucose 211 mg/dL (70-105) H 04/21/21 07:25 Calcium 8.8 mg/dL (8.4-10.2) 04/20/21 07:48 Ferritin 141.4 ng/mL (30.0-300.0) 04/19/21 10:14 Total Bilirubin 0.40 mg/dL (0.1-1.2) 04/20/21 07:48 AST 39 units/L (5-40) 04/20/21 07:48 ALT 36 units/L (7-56) 04/20/21 07:48 Alkaline Phosphatase 52 units/L (35-129) 04/20/21 07:48 Lactate Dehydrogenase 370 units/L (91-180) H 04/19/21 10:14 Troponin T < 0.010 ng/mL (0.00-0.029) 04/16/21 06:47 C-Reactive Protein 9.90 mg/dL (0.00-1.30) H 04/19/21 10:14 Total Protein 7.1 g/dL (6.3-8.2) 04/20/21 07:48 Albumin 3.6 g/dL (3.9-5) L 04/20/21 07:48 Albumin/Globulin Ratio 1.0 % 04/20/21 07:48 Coronavirus (PCR) Positive (Negative) A 04/18/21 10:00 Smith/IV: Voiding Method Toilet Active Medications - Current Medications Current Medications: Generic Name Dose Route Start Last Admin Trade Name Freq PRN Reason Stop Dose Admin Acetaminophen 650 mg 04/16/21 09:16 Acetaminophen 325 Mg Tab PO Q4H PRN Pain MILD(1-3)/Fever >100.5/ADDISON Albuterol 2 puff 04/17/21 08:00 04/20/21 19:40 Albuterol 8.5 Gm Mdi Inhalation IH 2 puff TIDRT EDILBERTO Administration Albuterol 2.5 mg 04/17/21 18:00 Albuterol 2.5 Mg/3 Ml Nebu IH QID PRN Wheezing Aspirin 81 mg 04/18/21 10:00 04/20/21 12:57 Aspirin 81 Mg Tab Chew PO Not Given QDAY EDILBERTO Atorvastatin Calcium 20 mg 04/17/21 22:00 04/20/21 22:28 Atorvastatin 20 Mg Tab PO 20 mg QHS EDILBERTO Administration Carvedilol 12.5 mg 04/17/21 22:00 04/20/21 22:31 Carvedilol 12.5 Mg Tab PO 12.5 mg BID EDILBERTO Administration Dexamethasone 6 mg 04/18/21 17:00 04/20/21 12:58 Dexamethasone 4 Mg Tab PO 04/27/21 10:01 Not Given QDAY EDILBERTO Dextrose 50 ml 04/16/21 15:59 Dextrose 50% In Water (25gm) 50 Ml Syringe IV Q30MIN PRN Hypoglycemia Protocol Enoxaparin Sodium 40 mg 04/17/21 22:00 04/20/21 22:27 Enoxaparin 40 Mg/0.4 Ml Inj SUB-Q 40 mg QDAY@2200 EDILBERTO Administration Protocol Gabapentin 300 mg 04/17/21 20:00 04/20/21 22:28 Gabapentin 300 Mg Cap PO 300 mg TID [facility] Administration Guaifenesin 200 mg 04/17/21 18:53 04/21/21 05:48 Guaifenesin 100 Mg/5 Ml Oral Liqd PO 200 mg Q4H PRN Administration Cough REMDESIVIR 100 mg/ Sodium 250 mls @ 500 mls/hr 04/19/21 21:00 04/20/21 22:27 Chloride IV 04/22/21 21:29 500 mls/hr Q24HR@2100 [facility] Administration Insulin Glargine 25 units 04/18/21 22:00 04/20/21 22:28 Insulin Glargine 100 Units/Ml SUB-Q 25 units QHS [facility] Administration Insulin Human Lispro 0 unit 04/16/21 16:30 04/20/21 23:30 Insulin Lispro 100 Unit/Ml SUB-Q 4 unit ACHS [facility] Administration Protocol Melatonin 5 mg 04/17/21 01:09 04/20/21 22:26 Melatonin 5 Mg Tab PO 5 mg QHS PRN Administration Sleep Morphine Sulfate 4 mg 04/16/21 09:16 Morphine 4 Mg/1 Ml Inj IV Q4H PRN Pain , Severe (7-10) Naloxone HCl 0.1 mg 04/16/21 09:16 Naloxone 0.4 Mg/1 Ml Inj IV Q2MIN PRN Res Rate </= 8 or 02 SAT < 92% Ondansetron HCl 4 mg 04/16/21 09:16 Ondansetron 4 Mg/2 Ml Inj IV Q8H PRN Nausea And Vomiting Oxycodone/Acetaminophen 1 tab 04/16/21 09:16 04/21/21 05:49 Oxycodone /Acetaminophen 5-325mg Tab PO 1 tab Q6H PRN Administration Pain, Moderate (4-6) Sodium Chloride 10 ml 04/16/21 10:00 04/20/21 22:29 Sodium Chloride 0.9% 10 Ml Flush Syringe IV 10 ml BID EDILBERTO Administration Sodium Chloride 10 ml 04/16/21 09:16 Sodium Chloride 0.9% 10 Ml Flush Syringe IV PRN PRN LINE FLUSH Sodium Chloride 50 ml 04/18/21 18:00 04/20/21 22:55 Sodium Chloride 0.9% 50 Ml Ivpb IV 04/22/21 21:01 50 ml Q24HR@2100 EDILBERTO Administration Nutrition/Malnutrition Assess - Dietary Evaluation Nutrition/Malnutrition Findings: Nutrition Notes Start: 04/18/21 10:40 Freq: Status: Active Protocol: Document 04/18/21 10:40 CW (Rec: 04/18/21 10:56 CW [id number]) Nutrition Notes 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 Spoke with pt over phone. PO itnake is poor at this time. Pt reports poor appetite x 12 days. UBW is 172 kg, indicating a weight loss of 2%. Pt reports having consumed ONS earlier today and is willing to continue ONS BID. Will reorder. Percent of energy/protein needs met: 26%/35% Burn Absent Trauma Absent GI Symptoms Diarrhea Food Allergy No Current % PO Negligible Minimum of two criteria No Energy Intake (non-severe) <75% Estimated Energy Requirement >7 days #1 Nutrition Diagnosis Inadequate oral intake Etiology covid 19 As Evidenced by Signs and Symptoms poor appetite per pt, 25% intake of meals provided Is patient on ventilator? No Is Patient Ambulatory and/or Out of Bed Yes REE-([place] or-ambulatory/OOB) [ 2676.677 NUTR.MSJOOB] Kcal/Kg value to use for calculation 12 Approximate Energy Requirements Using 2014 kcal/Kg Calculation Used for Recommendations Kcal/kg Additional Notes protein: 65 - 81g (0.8 - 1g/ kgIBW) fluid needs: 1 ml/kcal Nutrition Intervention Change Diet Order: Continue current diet as ordered Add Supplement/Snack (indicate name/kcal Glucerna BID /protein ) Provides kCal: 440 Provides Protein (gm) 20 Goal #1 Meet at least 70% of EER Anticipated Discharge Needs: Consistent Carbohydrate Diet Follow-Up By: 04/22/21 Additional Comments F/U for intakes and ONS tolerance
[2021-04-21] MEDS: ALBUTEROL 8.5 GM MDI INHALATION IH SCH ×3 (08:25→20:22)
[2021-04-21] MEDS: INSULIN LISPRO 100 UNIT/ML SUB-Q SCH ×4 (09:30→22:36)
[2021-04-21 09:48] LABS: Alanine Aminotransferase 39 units/L (7-56); Albumin 3.5 g/dL (3.9-5); Blood Urea Nitrogen 14 mg/dL (9-20); Calcium 8.5 mg/dL (8.4-10.2); Hemolysis Index 2
[2021-04-21 09:49] LABS: BUN/Creatinine Ratio 23
[2021-04-21] MEDS: DEXAMETHASONE 4 MG TAB PO SCH (10:44)
[2021-04-21] MEDS: GABAPENTIN 300 MG CAP PO SCH ×3 (10:44→21:53)
[2021-04-21] MEDS: ASPIRIN 81 MG TAB CHEW PO SCH (10:44)
[2021-04-21] MEDS: carvediloL 12.5 MG TAB PO SCH ×2 (10:44→21:55)
[2021-04-21] MEDS: MELATONIN 5 MG TAB PO PRN (21:50)
[2021-04-21] MEDS: ENOXAPARIN 40 MG/0.4 ML INJ SUB-Q SCH (21:51)
[2021-04-21] MEDS: REMDESIVIR 100 MG in SODIUM CHLORIDE 0.9% 250ML 250 ML IV SCH (21:54)
[2021-04-21] MEDS: INSULIN GLARGINE 100 UNITS/ML SUB-Q SCH (22:35)
[2021-04-21] MEDS: SODIUM CHLORIDE 0.9% 50 ML IVPB IV SCH (22:38)
[2021-04-22] MEDS: guaiFENesin 100 MG/5 ML ORAL LIQD PO PRN ×5 (01:07→23:04)
[2021-04-22] MEDS: oxyCODONE /ACETAMINOPHEN 5-325MG TAB PO PRN ×3 (04:45→19:00)
[2021-04-22] MEDS: GABAPENTIN 300 MG CAP PO SCH ×3 (08:02→21:32)
[2021-04-22] MEDS: INSULIN LISPRO 100 UNIT/ML SUB-Q SCH ×4 (08:02→21:34)
--- NOTE | 2021-04-22 08:38 | Progress Note ---
Assessment and Plan Assessment and plan: Today patient is on Ventimask with 15 L of oxygen, 50% FiO2 and saturating 98% Patient is on dexamethasone remdesivir per protocol, pulmonary following, refusing some therapie --Acute hypoxic respiratory failure Patient is on Ventimask settings as above Wean as tolerated, home O2 evaluation prior to discharge Prone positioning --Multifocal pneumonia; Continue empiric antibiotics Check procalcitonin, if normal DC antibiotics Follow cultures --COVID-19 infection -currently on 6 L NC, home O2 eval prior to discharge -CXR shows bilateral infiltrates -patient uses albuterol nebulizer at home, could have underlying COPD or OHS due to size? -COVID PCR positive 04/18/21 -continue dexamethasone 10 days and remdesivir 5 days -patient feeling better, home O2 eval ordered for possible discharge tomorrow if patient continues to clinically improve -albuterol nebs -continue azithromax and rocephin --Type 2 diabetes with neuropathy -outpatient regimen: detemir 20-25 qhs, metformin 1g BID, glipizide 10mg -continue lantus 25U QHS w/ SSI while inpatient -goal glucose 140-180s, uncontrolled blood sugars partly due to steroids -continue gabapentin at home dose --Hypertension/well controlled -continue carvedilol --Hyperlipidemia/low-cholesterol diet -atorvastatin --Obesity/BMI 50.2 Advised dietary modification exercise as tolerated and weight reduction when m edically stable -discussed lifestyle modifications (diet, exercise) and the effects of weight loss on overall health. Advised bariatric surgery consultation for weight reduction program as outpatient --Possible obstructive sleep apnea; Advised outpatient pulmonary for sleep study to rule out KENDRICK To set up CPAP BiPAP at night and as needed during the day --DVT prophylaxis Subcu Lovenox We will closely monitor the patient and adjust management as needed We will discuss the plan of care with the patient and his nurse Disposition Plan: continue medical management We will try to wean nasal cannula oxygen from 6L to 3 to 4 L Set up home oxygen prior to discharge 04/21/2021; Ventimask 15 L/50%/93 o2 sat/morbid obesity Guarded prognosis 04/22/2021; remains on Ventimask 15 L/50%/96 O2 sat Critically ill with poor prognosis. Wean as tolerated History Interval history: Seen and examined the patient at the bedside Patient's chart and medications reviewed No new complaints Patient is on 15 L nasal cannula oxygen Morbidly obese, in mild distress Hospitalist Physical - Constitutional Vitals: Temp Pulse Resp BP Pulse Ox 97.8 F 59 L 16 114/65 96 04/22/21 04:00 04/22/21 04:00 04/22/21 04:00 04/22/21 04:00 04/22/21 04:00 General appearance: Present: mild distress, well-nourished, obese (Morbidly obese) - EENT Eyes: Present: PERRL, EOM intact - Neck Neck: Present: supple, normal ROM - Respiratory Respiratory effort: normal Respiratory: bilateral: diminished, rhonchi, negative: rales, wheezing - Cardiovascular Rhythm: regular Heart Sounds: Present: S1 & S2 - Extremities Extremities: no ischemia, No edema - Abdominal General gastrointestinal: soft, non-tender, non-distended - Integumentary Integumentary: Present: clear, warm - Psychiatric Psychiatric: appropriate mood/affect, cooperative - Neurologic Neurologic: moves all extremities HEART Score - HEART Score Troponin: Troponin T < 0.010 ng/mL (0.00-0.029) 04/16/21 06:47 Results - Labs CBC & Chem 7: 04/17/21 03:20 04/21/21 08:38 Labs: Laboratory Last Values WBC 4.1 K/mm3 (4.5-11.0) L 04/17/21 03:20 RBC 4.46 M/mm3 (3.65-5.03) 04/17/21 03:20 Hgb 11.2 gm/dl (11.8-15.2) L 04/17/21 03:20 Hct 36.0 % (35.5-45.6) 04/17/21 03:20 MCV 81 fl (84-94) L 04/17/21 03:20 MCH 25 pg (28-32) L 04/17/21 03:20 MCHC 31 % (32-34) L 04/17/21 03:20 RDW 16.1 % (13.2-15.2) H 04/17/21 03:20 Plt Count 190 K/mm3 (140-440) 04/17/21 03:20 Lymph % (Auto) 22.2 % (13.4-35.0) 04/17/21 03:20 [place] % (Auto) 10.9 % (0.0-7.3) H 04/17/21 03:20 Eos % (Auto) 0.0 % (0.0-4.3) 04/17/21 03:20 Baso % (Auto) 0.2 % (0.0-1.8) 04/17/21 03:20 Lymph # (Auto) 0.9 K/mm3 (1.2-5.4) L 04/17/21 03:20 [place] # (Auto) 0.5 K/mm3 (0.0-0.8) 04/17/21 03:20 Eos # (Auto) 0.0 K/mm3 (0.0-0.4) 04/17/21 03:20 Baso # (Auto) 0.0 K/mm3 (0.0-0.1) 04/17/21 03:20 Seg Neutrophils % 66.7 % (40.0-70.0) 04/17/21 03:20 Seg Neutrophils # 2.8 K/mm3 (1.8-7.7) 04/17/21 03:20 D-Dimer 298.94 ng/mlDDU (0-234) H 04/19/21 10:14 Sodium 136 mmol/L (137-145) L 04/21/21 08:38 Potassium 3.6 mmol/L (3.6-5.0) 04/21/21 08:38 Chloride 96.1 mmol/L (98-107) L 04/21/21 08:38 Carbon Dioxide 24 mmol/L (22-30) 04/21/21 08:38 Anion Gap 20 mmol/L 04/21/21 08:38 BUN 14 mg/dL (9-20) 04/21/21 08:38 Creatinine 0.6 mg/dL (0.8-1.3) L 04/21/21 08:38 Estimated GFR > 60 ml/min 04/21/21 08:38 BUN/Creatinine Ratio 23 % 04/21/21 08:38 Glucose 218 mg/dL (75-100) H 04/21/21 08:38 POC Glucose 174 mg/dL (70-105) H 04/22/21 07:42 Calcium 8.5 mg/dL (8.4-10.2) 04/21/21 08:38 Ferritin 141.4 ng/mL (30.0-300.0) 04/19/21 10:14 Total Bilirubin 0.40 mg/dL (0.1-1.2) 04/21/21 08:38 AST 45 units/L (5-40) H 04/21/21 08:38 ALT 39 units/L (7-56) 04/21/21 08:38 Alkaline Phosphatase 54 units/L (35-129) 04/21/21 08:38 Lactate Dehydrogenase 370 units/L (91-180) H 04/19/21 10:14 Troponin T < 0.010 ng/mL (0.00-0.029) 04/16/21 06:47 C-Reactive Protein 9.90 mg/dL (0.00-1.30) H 04/19/21 10:14 Total Protein 6.7 g/dL (6.3-8.2) 04/21/21 08:38 Albumin 3.5 g/dL (3.9-5) L 04/21/21 08:38 Albumin/Globulin Ratio 1.1 % 04/21/21 08:38 Procalcitonin 0.17 ng/mL (<0.15) 04/16/21 06:47 Coronavirus (PCR) Positive (Negative) A 04/18/21 10:00 Smith/IV: Voiding Method Urinal Active Medications - Current Medications Current Medications: Generic Name Dose Route Start Last Admin Trade Name Freq PRN Reason Stop Dose Admin Acetaminophen 650 mg 04/16/21 09:16 Acetaminophen 325 Mg Tab PO Q4H PRN Pain MILD(1-3)/Fever >100.5/ADDISON Albuterol 2 puff 04/17/21 08:00 04/21/21 20:22 Albuterol 8.5 Gm Mdi Inhalation IH 2 puff TIDRT EDILBERTO Administration Albuterol 2.5 mg 04/17/21 18:00 Albuterol 2.5 Mg/3 Ml Nebu IH QID PRN Wheezing Aspirin 81 mg 04/18/21 10:00 04/21/21 10:44 Aspirin 81 Mg Tab Chew PO 81 mg QDAY EDILBERTO Administration Atorvastatin Calcium 20 mg 04/17/21 22:00 04/21/21 21:54 Atorvastatin 20 Mg Tab PO 20 mg QHS EDILBERTO Administration Carvedilol 12.5 mg 04/17/21 22:00 04/21/21 21:55 Carvedilol 12.5 Mg Tab PO 12.5 mg BID EDILBERTO Administration Dexamethasone 6 mg 04/18/21 17:00 04/21/21 10:44 Dexamethasone 4 Mg Tab PO 04/27/21 10:01 6 mg QDAY EDILBERTO Administration Dextrose 50 ml 04/16/21 15:59 Dextrose 50% In Water (25gm) 50 Ml Syringe IV Q30MIN PRN Hypoglycemia Protocol Enoxaparin Sodium 40 mg 04/17/21 22:00 04/21/21 21:51 Enoxaparin 40 Mg/0.4 Ml Inj SUB-Q 40 mg QDAY@2200 EDILBERTO Administration Protocol Gabapentin 300 mg 04/17/21 20:00 04/22/21 08:02 Gabapentin 300 Mg Cap PO 300 mg TID EDILBERTO Administration Guaifenesin 200 mg 04/17/21 18:53 04/22/21 08:02 Guaifenesin 100 Mg/5 Ml Oral Liqd PO 200 mg Q4H PRN Administration Cough REMDESIVIR 100 mg/ Sodium 250 mls @ 500 mls/hr 04/19/21 21:00 04/21/21 21:54 Chloride IV 04/22/21 21:29 500 mls/hr Q24HR@2100 EDILBERTO Administration Insulin Glargine 25 units 04/18/21 22:00 04/21/21 22:35 Insulin Glargine 100 Units/Ml SUB-Q 25 units QHS EDILBERTO Administration Insulin Human Lispro 0 unit 04/16/21 16:30 04/22/21 08:02 Insulin Lispro 100 Unit/Ml SUB-Q 2 unit ACHS EDILBERTO Administration Protocol Melatonin 5 mg 04/17/21 01:09 04/21/21 21:50 Melatonin 5 Mg Tab PO 5 mg QHS PRN Administration Sleep Morphine Sulfate 4 mg 04/16/21 09:16 Morphine 4 Mg/1 Ml Inj IV Q4H PRN Pain , Severe (7-10) Naloxone HCl 0.1 mg 04/16/21 09:16 Naloxone 0.4 Mg/1 Ml Inj IV Q2MIN PRN Res Rate </= 8 or 02 SAT < 92% Ondansetron HCl 4 mg 04/16/21 09:16 Ondansetron 4 Mg/2 Ml Inj IV Q8H PRN Nausea And Vomiting Oxycodone/Acetaminophen 1 tab 04/16/21 09:16 04/22/21 04:45 Oxycodone /Acetaminophen 5-325mg Tab PO 1 tab Q6H PRN Administration Pain, Moderate (4-6) Sodium Chloride 10 ml 04/16/21 10:00 04/21/21 21:54 Sodium Chloride 0.9% 10 Ml Flush Syringe IV 10 ml BID EDILBERTO Administration Sodium Chloride 10 ml 04/16/21 09:16 Sodium Chloride 0.9% 10 Ml Flush Syringe IV PRN PRN LINE FLUSH Sodium Chloride 50 ml 04/18/21 18:00 04/21/21 22:38 Sodium Chloride 0.9% 50 Ml Ivpb IV 04/22/21 21:01 50 ml Q24HR@2100 EDILBERTO Administration Nutrition/Malnutrition Assess - Dietary Evaluation Nutrition/Malnutrition Findings: Nutrition Notes Start: 04/18/21 10:40 Freq: Status: Active Protocol: Document 04/18/21 10:40 CW (Rec: 04/18/21 10:56 CW [id number]) Nutrition 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 Spoke with pt over phone. PO itnake is poor at this time. Pt reports poor appetite x 12 days. UBW is 172 kg, indicating a weight loss of 2%. Pt reports having consumed ONS earlier today and is willing to continue ONS BID. Will reorder. Percent of energy/protein needs met: 26%/35% Burn Absent Trauma Absent GI Symptoms Diarrhea Food Allergy No Current % PO Negligible Minimum of two criteria No Energy Intake (non-severe) <75% Estimated Energy Requirement >7 days #1 Nutrition Diagnosis Inadequate oral intake Etiology covid 19 As Evidenced by Signs and Symptoms poor appetite per pt, 25% intake of meals provided Is patient on ventilator? No Is Patient Ambulatory and/or Out of Bed Yes REE-([place] Jeor-ambulatory/OOB) [ 0136.677 NUTR.MSJOOB] Kcal/Kg value to use for calculation 12 Approximate Energy Requirements Using 2014 kcal/Kg Calculation Used for Recommendations Kcal/kg Additional Notes protein: 65 - 81g (0.8 - 1g/ kgIBW) fluid needs: 1 ml/kcal Nutrition Intervention Change Diet Order: Continue current diet as ordered Add Supplement/Snack (indicate name/kcal Glucerna BID /protein ) Provides kCal: 440 Provides Protein (gm) 20 Goal #1 Meet at least 70% of EER Anticipated Discharge Needs: Consistent Carbohydrate Diet Follow-Up By: 04/22/21 Additional Comments F/U for intakes and ONS tolerance
[2021-04-22] MEDS: DEXAMETHASONE 4 MG TAB PO SCH (09:08)
[2021-04-22] MEDS: ASPIRIN 81 MG TAB CHEW PO SCH (09:08)
[2021-04-22] MEDS: carvediloL 12.5 MG TAB PO SCH ×2 (09:08→21:33)
[2021-04-22] MEDS: ALBUTEROL 8.5 GM MDI INHALATION IH SCH ×3 (11:30→21:35)
[2021-04-22] MEDS: ENOXAPARIN 40 MG/0.4 ML INJ SUB-Q SCH (21:32)
[2021-04-22] MEDS: SODIUM CHLORIDE 0.9% 50 ML IVPB IV SCH (21:32)
[2021-04-22] MEDS: REMDESIVIR 100 MG in SODIUM CHLORIDE 0.9% 250ML 250 ML IV SCH (21:32)
[2021-04-22] MEDS: MELATONIN 5 MG TAB PO PRN (21:33)
[2021-04-22] MEDS: INSULIN GLARGINE 100 UNITS/ML SUB-Q SCH (21:33)
[2021-04-23] MEDS: oxyCODONE /ACETAMINOPHEN 5-325MG TAB PO PRN ×4 (01:09→23:34)
[2021-04-23] MEDS: guaiFENesin 100 MG/5 ML ORAL LIQD PO PRN ×4 (03:21→22:44)
[2021-04-23] MEDS: INSULIN LISPRO 100 UNIT/ML SUB-Q SCH ×4 (08:15→22:50)
[2021-04-23] MEDS: GABAPENTIN 300 MG CAP PO SCH ×3 (08:15→22:44)
[2021-04-23] MEDS: DEXAMETHASONE 4 MG TAB PO SCH (10:03)
[2021-04-23] MEDS: carvediloL 12.5 MG TAB PO SCH ×2 (10:03→22:45)
[2021-04-23] MEDS: ASPIRIN 81 MG TAB CHEW PO SCH (10:03)
[2021-04-23] MEDS: ALBUTEROL 8.5 GM MDI INHALATION IH SCH ×3 (10:07→20:56)
--- NOTE | 2021-04-23 18:04 | Progress Note ---
Assessment and Plan Assessment and plan: Today patient is on Ventimask with 15 L of oxygen, 50% FiO2 and saturating 98% Patient is on dexamethasone remdesivir per protocol, pulmonary following, refusing some therapie --Acute hypoxic respiratory failure Patient is on Ventimask settings as above Wean as tolerated, home O2 evaluation prior to discharge Prone positioning --Multifocal pneumonia; Continue empiric antibiotics Check procalcitonin, if normal DC antibiotics Follow cultures --COVID-19 infection -currently on 6 L NC, home O2 eval prior to discharge -CXR shows bilateral infiltrates -patient uses albuterol nebulizer at home, could have underlying COPD or OHS due to size? -COVID PCR positive 04/18/21 -continue dexamethasone 10 days and remdesivir 5 days -patient feeling better, home O2 eval ordered for possible discharge tomorrow if patient continues to clinically improve -albuterol nebs -continue azithromax and rocephin --Type 2 diabetes with neuropathy -outpatient regimen: detemir 20-25 qhs, metformin 1g BID, glipizide 10mg -continue lantus 25U QHS w/ SSI while inpatient -goal glucose 140-180s, uncontrolled blood sugars partly due to steroids -continue gabapentin at home dose --Hypertension/well controlled -continue carvedilol --Hyperlipidemia/low-cholesterol diet -atorvastatin --Obesity/BMI 50.2 Advised dietary modification exercise as tolerated and weight reduction when m edically stable -discussed lifestyle modifications (diet, exercise) and the effects of weight loss on overall health. Advised bariatric surgery consultation for weight reduction program as outpatient --Possible obstructive sleep apnea; Advised outpatient pulmonary for sleep study to rule out KENDRICK To set up CPAP BiPAP at night and as needed during the day --DVT prophylaxis Subcu Lovenox We will closely monitor the patient and adjust management as needed We will discuss the plan of care with the patient and his nurse Disposition Plan: continue medical management We will try to wean nasal cannula oxygen from 6L to 3 to 4 L Set up home oxygen prior to discharge 04/21/2021; Ventimask 15 L/50%/93 o2 sat/morbid obesity Guarded prognosis 04/22/2021; remains on Ventimask 15 L/50%/96 O2 sat Critically ill with poor prognosis. Wean as tolerated 04/23/2021; patient continues to be on 15 L oxygen Ventimask 50% FiO2 Wean as tolerated, titrate O2 sats to more than 90% Considering LTAC, patient has no resources History Interval history: I have seen and examined the patient at the bedside Patient continues to be on 15 L Ventimask Mild distress Hospitalist Physical - Constitutional Vitals: Temp Pulse Resp BP Pulse Ox 98.0 F 71 24 121/63 92 04/23/21 13:33 04/23/21 16:34 04/23/21 16:34 04/23/21 16:34 04/23/21 16:34 General appearance: Present: mild distress, well-nourished, obese (Morbidly obese) - EENT Eyes: Present: PERRL, EOM intact - Neck Neck: Present: supple, normal ROM - Respiratory Respiratory effort: normal Respiratory: bilateral: diminished, negative: rales, rhonchi, wheezing - Cardiovascular Rhythm: regular Heart Sounds: Present: S1 & S2 - Extremities Extremities: no ischemia, No edema - Abdominal General gastrointestinal: soft, non-tender, non-distended, normal bowel sounds - Integumentary Integumentary: Present: clear, warm - Psychiatric Psychiatric: appropriate mood/affect, cooperative - Neurologic Neurologic: moves all extremities HEART Score - HEART Score Troponin: Troponin T < 0.010 ng/mL (0.00-0.029) 04/16/21 06:47 Results - Labs CBC & Chem 7: 04/17/21 03:20 04/21/21 08:38 Labs: Laboratory Last Values WBC 4.1 K/mm3 (4.5-11.0) L 04/17/21 03:20 RBC 4.46 M/mm3 (3.65-5.03) 04/17/21 03:20 Hgb 11.2 gm/dl (11.8-15.2) L 04/17/21 03:20 Hct 36.0 % (35.5-45.6) 04/17/21 03:20 MCV 81 fl (84-94) L 04/17/21 03:20 MCH 25 pg (28-32) L 04/17/21 03:20 MCHC 31 % (32-34) L 04/17/21 03:20 RDW 16.1 % (13.2-15.2) H 04/17/21 03:20 Plt Count 190 K/mm3 (140-440) 04/17/21 03:20 Lymph % (Auto) 22.2 % (13.4-35.0) 04/17/21 03:20 [place] % (Auto) 10.9 % (0.0-7.3) H 04/17/21 03:20 Eos % (Auto) 0.0 % (0.0-4.3) 04/17/21 03:20 Baso % (Auto) 0.2 % (0.0-1.8) 04/17/21 03:20 Lymph # (Auto) 0.9 K/mm3 (1.2-5.4) L 04/17/21 03:20 [place] # (Auto) 0.5 K/mm3 (0.0-0.8) 04/17/21 03:20 Eos # (Auto) 0.0 K/mm3 (0.0-0.4) 04/17/21 03:20 Baso # (Auto) 0.0 K/mm3 (0.0-0.1) 04/17/21 03:20 Seg Neutrophils % 66.7 % (40.0-70.0) 04/17/21 03:20 Seg Neutrophils # 2.8 K/mm3 (1.8-7.7) 04/17/21 03:20 D-Dimer 298.94 ng/mlDDU (0-234) H 04/19/21 10:14 Sodium 136 mmol/L (137-145) L 04/21/21 08:38 Potassium 3.6 mmol/L (3.6-5.0) 04/21/21 08:38 Chloride 96.1 mmol/L (98-107) L 04/21/21 08:38 Carbon Dioxide 24 mmol/L (22-30) 04/21/21 08:38 Anion Gap 20 mmol/L 04/21/21 08:38 BUN 14 mg/dL (9-20) 04/21/21 08:38 Creatinine 0.6 mg/dL (0.8-1.3) L 04/21/21 08:38 Estimated GFR > 60 ml/min 04/21/21 08:38 BUN/Creatinine Ratio 23 % 04/21/21 08:38 Glucose 218 mg/dL (75-100) H 04/21/21 08:38 POC Glucose 354 mg/dL (70-105) H 04/23/21 16:30 Calcium 8.5 mg/dL (8.4-10.2) 04/21/21 08:38 Ferritin 141.4 ng/mL (30.0-300.0) 04/19/21 10:14 Total Bilirubin 0.40 mg/dL (0.1-1.2) 04/21/21 08:38 AST 45 units/L (5-40) H 04/21/21 08:38 ALT 39 units/L (7-56) 04/21/21 08:38 Alkaline Phosphatase 54 units/L (35-129) 04/21/21 08:38 Lactate Dehydrogenase 370 units/L (91-180) H 04/19/21 10:14 Troponin T < 0.010 ng/mL (0.00-0.029) 04/16/21 06:47 C-Reactive Protein 9.90 mg/dL (0.00-1.30) H 04/19/21 10:14 Total Protein 6.7 g/dL (6.3-8.2) 04/21/21 08:38 Albumin 3.5 g/dL (3.9-5) L 04/21/21 08:38 Albumin/Globulin Ratio 1.1 % 04/21/21 08:38 Procalcitonin 0.17 ng/mL (<0.15) 04/16/21 06:47 Coronavirus (PCR) Positive (Negative) A 04/18/21 10:00 Smith/IV: Voiding Method Urinal Active Medications - Current Medications Current Medications: Generic Name Dose Route Start Last Admin Trade Name Freq PRN Reason Stop Dose Admin Acetaminophen 650 mg 04/16/21 09:16 Acetaminophen 325 Mg Tab PO Q4H PRN Pain MILD(1-3)/Fever >100.5/ADDISON Albuterol 2 puff 04/17/21 08:00 04/23/21 15:34 Albuterol 8.5 Gm Mdi Inhalation IH 2 puff TIDRT EDILBERTO Administration Albuterol 2.5 mg 04/17/21 18:00 Albuterol 2.5 Mg/3 Ml Nebu IH QID PRN Wheezing Aspirin 81 mg 04/18/21 10:00 04/23/21 10:03 Aspirin 81 Mg Tab Chew PO 81 mg QDAY EDILBERTO Administration Atorvastatin Calcium 20 mg 04/17/21 22:00 04/22/21 21:33 Atorvastatin 20 Mg Tab PO 20 mg QHS EDILBERTO Administration Carvedilol 12.5 mg 04/17/21 22:00 04/23/21 10:03 Carvedilol 12.5 Mg Tab PO 12.5 mg BID EDILBERTO Administration Dexamethasone 6 mg 04/18/21 17:00 04/23/21 10:03 Dexamethasone 4 Mg Tab PO 04/27/21 10:01 6 mg QDAY EDILBERTO Administration Dextrose 50 ml 04/16/21 15:59 Dextrose 50% In Water (25gm) 50 Ml Syringe IV Q30MIN PRN Hypoglycemia Protocol Enoxaparin Sodium 40 mg 04/17/21 22:00 04/22/21 21:32 Enoxaparin 40 Mg/0.4 Ml Inj SUB-Q 40 mg QDAY@2200 EDILBERTO Administration Protocol Gabapentin 300 mg 04/17/21 20:00 04/23/21 13:31 Gabapentin 300 Mg Cap PO 300 mg TID EDILBERTO Administration Guaifenesin 200 mg 04/17/21 18:53 04/23/21 10:04 Guaifenesin 100 Mg/5 Ml Oral Liqd PO 200 mg Q4H PRN Administration Cough Insulin Glargine 25 units 04/18/21 22:00 04/22/21 21:33 Insulin Glargine 100 Units/Ml SUB-Q 25 units QHS EDILBERTO Administration Insulin Human Lispro 0 unit 04/16/21 16:30 04/23/21 13:31 Insulin Lispro 100 Unit/Ml SUB-Q 3 unit ACHS EDILBERTO Administration Protocol Melatonin 5 mg 04/17/21 01:09 04/22/21 21:33 Melatonin 5 Mg Tab PO 5 mg QHS PRN Administration Sleep Morphine Sulfate 4 mg 04/16/21 09:16 Morphine 4 Mg/1 Ml Inj IV Q4H PRN Pain , Severe (7-10) Naloxone HCl 0.1 mg 04/16/21 09:16 Naloxone 0.4 Mg/1 Ml Inj IV Q2MIN PRN Res Rate </= 8 or 02 SAT < 92% Ondansetron HCl 4 mg 04/16/21 09:16 Ondansetron 4 Mg/2 Ml Inj IV Q8H PRN Nausea And Vomiting Oxycodone/Acetaminophen 1 tab 04/16/21 09:16 04/23/21 10:03 Oxycodone /Acetaminophen 5-325mg Tab PO 1 tab Q6H PRN Administration Pain, Moderate (4-6) Sodium Chloride 10 ml 04/16/21 10:00 04/23/21 10:05 Sodium Chloride 0.9% 10 Ml Flush Syringe IV 10 ml BID EDILBERTO Administration Sodium Chloride 10 ml 04/16/21 09:16 Sodium Chloride 0.9% 10 Ml Flush Syringe IV PRN PRN LINE FLUSH Nutrition/Malnutrition Assess - Dietary Evaluation Nutrition/Malnutrition Findings: Nutrition Notes Start: 04/18/21 10:40 Freq: Status: Active Protocol: Document 04/22/21 15:07 PHILLIP (Rec: 04/22/21 15:17 PHILLIP [email or web address]) Nutrition Notes Initial or Follow up Brief Note Current Diet Consistent Carbohydrates Diet (since L 04/16), D Suppl ( since L 04/18). Height 6 ft Weight 167.9 kg [place] Body Weight (kg) 80.90 BMI 50.2 Weight change and time frame 0.071 Kg body weight change in 4 days reported. Weight Status Morbidly Obese Subjective/Other Information RD consult for routine F/U on Dietary assessment. Pt's PO intake of meals has improved, now is Good (75-100% ), according to ADL notes. Percent of energy/protein needs met: Prescribed Consistent Carbohydrates Diet provides for energy/protein needs (2, 061 Kcal/91 g) during LOS; additionally, Dietary Supplements will compensate for possible Poor PO intake of meals with 440 Kcal and 20 g of protein. Current % PO Good (75-100%) Minimum of two criteria No #1 Nutrition Diagnosis Inadequate oral intake Diagnosis Progress(for reassessment Resolved documentation) Nutrition Intervention Change Diet Order: Continue Consistent Carbohydrates Diet. Add Supplement/Snack (indicate name/kcal Continue 8 fl oz Glucerna; BID /protein ) . Provides kCal: 440 Provides Protein (gm) 20 Goal #1 Compensate, through dietary supplementation, for possible poor or insufficient PO intake of meals during LOS. Goal #2 Maintain body weight within +/ -3% of admission body weight during LOS. Revisit per MD consult or patient Sign Off request: Additional Comments Continue monitoring food tolerance, %PO intake of meals , and BM.
[2021-04-23] MEDS: MELATONIN 5 MG TAB PO PRN (22:44)
[2021-04-23] MEDS: ENOXAPARIN 40 MG/0.4 ML INJ SUB-Q SCH (22:45)
[2021-04-23] MEDS: INSULIN GLARGINE 100 UNITS/ML SUB-Q SCH (22:45)
[2021-04-24] MEDS: oxyCODONE /ACETAMINOPHEN 5-325MG TAB PO PRN ×3 (05:29→21:35)
[2021-04-24] MEDS: guaiFENesin 100 MG/5 ML ORAL LIQD PO PRN ×4 (05:31→23:10)
--- NOTE | 2021-04-24 09:13 | Progress Note ---
Assessment and Plan Assessment and plan: Today patient is on Ventimask with 15 L of oxygen, 50% FiO2 and saturating 98% Patient is on dexamethasone remdesivir per protocol, pulmonary following, refusing some therapie --Acute hypoxic respiratory failure Patient is on Ventimask settings as above Wean as tolerated, home O2 evaluation prior to discharge Prone positioning --Multifocal pneumonia; Continue empiric antibiotics Check procalcitonin, if normal DC antibiotics Follow cultures --COVID-19 infection -currently on 6 L NC, home O2 eval prior to discharge -CXR shows bilateral infiltrates -patient uses albuterol nebulizer at home, could have underlying COPD or OHS due to size? -COVID PCR positive 04/18/21 -continue dexamethasone 10 days and remdesivir 5 days -patient feeling better, home O2 eval ordered -albuterol nebs -continue azithromax and rocephin --Type 2 diabetes with neuropathy -outpatient regimen: detemir 20-25 qhs, metformin 1g BID, glipizide 10mg -continue lantus 25U QHS w/ SSI while inpatient -goal glucose 140-180s, uncontrolled blood sugars partly due to steroids -continue gabapentin at home dose --Hypertension/well controlled -continue carvedilol --Hyperlipidemia/low-cholesterol diet -atorvastatin --Obesity/BMI 50.2 Advised dietary modification exercise as tolerated and weight reduction when medically stable -discussed lifestyle modifications (diet, exercise) and the effects of weight loss on overall health. Advised bariatric surgery consultation for weight reduction program as outpatient --Possible obstructive sleep apnea; Advised outpatient pulmonary for sleep study to rule out KENDRICK To set up CPAP BiPAP at night and as needed during the day --DVT prophylaxis Subcu Lovenox We will closely monitor the patient and adjust management as needed We will discuss the plan of care with the patient and his nurse Disposition Plan: continue medical management We will try to wean nasal cannula oxygen from 6L to 3 to 4 L Set up home oxygen prior to discharge 04/21/2021; Ventimask 15 L/50%/93 o2 sat/morbid obesity Guarded prognosis 04/22/2021; remains on Ventimask 15 L/50%/96 O2 sat Critically ill with poor prognosis. Wean as tolerated 04/23/2021; patient continues to be on 15 L oxygen Ventimask 50% FiO2 Wean as tolerated, titrate O2 sats to more than 90% Considering LTAC, patient has no resources 04/24/2021; Home O2 evaluation Patient continues to require 15 L on Ventimask Morbidly obese, patient refused high flow NC oxygen History Interval history: I have seen and examined the patient at the bedside Patient remains on 15 L of oxygen Complains of mild shortness of breath Anxious to go home Hospitalist Physical - Constitutional Vitals: Temp Pulse Resp BP Pulse Ox 97.5 F L 71 20 126/73 86 04/24/21 05:23 04/24/21 05:23 04/24/21 05:23 04/24/21 05:23 04/24/21 05:23 General appearance: Present: mild distress, well-nourished, obese (Morbidly obese) - EENT Eyes: Present: PERRL, EOM intact - Neck Neck: Present: supple, normal ROM - Respiratory Respiratory effort: normal Respiratory: bilateral: diminished, rhonchi, negative: rales, wheezing - Cardiovascular Rhythm: regular Heart Sounds: Present: S1 & S2 - Extremities Extremities: no ischemia, No edema - Abdominal General gastrointestinal: soft, non-tender, non-distended - Integumentary Integumentary: Present: clear, warm - Psychiatric Psychiatric: appropriate mood/affect, cooperative - Neurologic Neurologic: moves all extremities HEART Score - HEART Score Troponin: Troponin T < 0.010 ng/mL (0.00-0.029) 04/16/21 06:47 Results - Labs CBC & Chem 7: 04/17/21 03:20 04/21/21 08:38 Labs: Laboratory Last Values WBC 4.1 K/mm3 (4.5-11.0) L 04/17/21 03:20 RBC 4.46 M/mm3 (3.65-5.03) 04/17/21 03:20 Hgb 11.2 gm/dl (11.8-15.2) L 04/17/21 03:20 Hct 36.0 % (35.5-45.6) 04/17/21 03:20 MCV 81 fl (84-94) L 04/17/21 03:20 MCH 25 pg (28-32) L 04/17/21 03:20 MCHC 31 % (32-34) L 04/17/21 03:20 RDW 16.1 % (13.2-15.2) H 04/17/21 03:20 Plt Count 190 K/mm3 (140-440) 04/17/21 03:20 Lymph % (Auto) 22.2 % (13.4-35.0) 04/17/21 03:20 [place] % (Auto) 10.9 % (0.0-7.3) H 04/17/21 03:20 Eos % (Auto) 0.0 % (0.0-4.3) 04/17/21 03:20 Baso % (Auto) 0.2 % (0.0-1.8) 04/17/21 03:20 Lymph # (Auto) 0.9 K/mm3 (1.2-5.4) L 04/17/21 03:20 [place] # (Auto) 0.5 K/mm3 (0.0-0.8) 04/17/21 03:20 Eos # (Auto) 0.0 K/mm3 (0.0-0.4) 04/17/21 03:20 Baso # (Auto) 0.0 K/mm3 (0.0-0.1) 04/17/21 03:20 Seg Neutrophils % 66.7 % (40.0-70.0) 04/17/21 03:20 Seg Neutrophils # 2.8 K/mm3 (1.8-7.7) 04/17/21 03:20 D-Dimer 298.94 ng/mlDDU (0-234) H 04/19/21 10:14 Sodium 136 mmol/L (137-145) L 04/21/21 08:38 Potassium 3.6 mmol/L (3.6-5.0) 04/21/21 08:38 Chloride 96.1 mmol/L (98-107) L 04/21/21 08:38 Carbon Dioxide 24 mmol/L (22-30) 04/21/21 08:38 Anion Gap 20 mmol/L 04/21/21 08:38 BUN 14 mg/dL (9-20) 04/21/21 08:38 Creatinine 0.6 mg/dL (0.8-1.3) L 04/21/21 08:38 Estimated GFR > 60 ml/min 04/21/21 08:38 BUN/Creatinine Ratio 23 % 04/21/21 08:38 Glucose 218 mg/dL (75-100) H 04/21/21 08:38 POC Glucose 184 mg/dL (70-105) H 04/24/21 07:53 Calcium 8.5 mg/dL (8.4-10.2) 04/21/21 08:38 Ferritin 141.4 ng/mL (30.0-300.0) 04/19/21 10:14 Total Bilirubin 0.40 mg/dL (0.1-1.2) 04/21/21 08:38 AST 45 units/L (5-40) H 04/21/21 08:38 ALT 39 units/L (7-56) 04/21/21 08:38 Alkaline Phosphatase 54 units/L (35-129) 04/21/21 08:38 Lactate Dehydrogenase 370 units/L (91-180) H 04/19/21 10:14 Troponin T < 0.010 ng/mL (0.00-0.029) 04/16/21 06:47 C-Reactive Protein 9.90 mg/dL (0.00-1.30) H 04/19/21 10:14 Total Protein 6.7 g/dL (6.3-8.2) 04/21/21 08:38 Albumin 3.5 g/dL (3.9-5) L 04/21/21 08:38 Albumin/Globulin Ratio 1.1 % 04/21/21 08:38 Procalcitonin 0.17 ng/mL (<0.15) 04/16/21 06:47 Coronavirus (PCR) Positive (Negative) A 04/18/21 10:00 Smith/IV: Voiding Method Urinal Active Medications - Current Medications Current Medications: Generic Name Dose Route Start Last Admin Trade Name Freq PRN Reason Stop Dose Admin Acetaminophen 650 mg 04/16/21 09:16 Acetaminophen 325 Mg Tab PO Q4H PRN Pain MILD(1-3)/Fever >100.5/ADDISON Albuterol 2 puff 04/17/21 08:00 04/23/21 20:56 Albuterol 8.5 Gm Mdi Inhalation IH 2 puff TIDRT EDILBERTO Administration Albuterol 2.5 mg 04/17/21 18:00 Albuterol 2.5 Mg/3 Ml Nebu IH QID PRN Wheezing Aspirin 81 mg 04/18/21 10:00 04/23/21 10:03 Aspirin 81 Mg Tab Chew PO 81 mg QDAY EDILBERTO Administration Atorvastatin Calcium 20 mg 04/17/21 22:00 04/23/21 22:51 Atorvastatin 20 Mg Tab PO 20 mg QHS EDILBERTO Administration Carvedilol 12.5 mg 04/17/21 22:00 04/23/21 22:45 Carvedilol 12.5 Mg Tab PO 12.5 mg BID EDILBERTO Administration Dexamethasone 6 mg 04/18/21 17:00 04/23/21 10:03 Dexamethasone 4 Mg Tab PO 04/27/21 10:01 6 mg QDAY EDILBERTO Administration Dextrose 50 ml 04/16/21 15:59 Dextrose 50% In Water (25gm) 50 Ml Syringe IV Q30MIN PRN Hypoglycemia Protocol Enoxaparin Sodium 40 mg 04/17/21 22:00 04/23/21 22:45 Enoxaparin 40 Mg/0.4 Ml Inj SUB-Q 40 mg QDAY@2200 EDILBERTO Administration Protocol Gabapentin 300 mg 04/17/21 20:00 04/23/21 22:44 Gabapentin 300 Mg Cap PO 300 mg TID EDILBERTO Administration Guaifenesin 200 mg 04/17/21 18:53 04/24/21 05:31 Guaifenesin 100 Mg/5 Ml Oral Liqd PO 200 mg Q4H PRN Administration Cough Insulin Glargine 25 units 04/18/21 22:00 04/23/21 22:45 Insulin Glargine 100 Units/Ml SUB-Q 25 units QHS EDILBERTO Administration Insulin Human Lispro 0 unit 04/16/21 16:30 04/23/21 22:50 Insulin Lispro 100 Unit/Ml SUB-Q 4 unit ACHS EDILBERTO Administration Protocol Melatonin 5 mg 04/17/21 01:09 04/23/21 22:44 Melatonin 5 Mg Tab PO 5 mg QHS PRN Administration Sleep Morphine Sulfate 4 mg 04/16/21 09:16 Morphine 4 Mg/1 Ml Inj IV Q4H PRN Pain , Severe (7-10) Naloxone HCl 0.1 mg 04/16/21 09:16 Naloxone 0.4 Mg/1 Ml Inj IV Q2MIN PRN Res Rate </= 8 or 02 SAT < 92% Ondansetron HCl 4 mg 04/16/21 09:16 Ondansetron 4 Mg/2 Ml Inj IV Q8H PRN Nausea And Vomiting Oxycodone/Acetaminophen 1 tab 04/16/21 09:16 04/24/21 05:29 Oxycodone /Acetaminophen 5-325mg Tab PO 1 tab Q6H PRN Administration Pain, Moderate (4-6) Sodium Chloride 10 ml 04/16/21 10:00 04/23/21 22:51 Sodium Chloride 0.9% 10 Ml Flush Syringe IV 10 ml BID EDILBERTO Administration Sodium Chloride 10 ml 04/16/21 09:16 Sodium Chloride 0.9% 10 Ml Flush Syringe IV PRN PRN LINE FLUSH Nutrition/Malnutrition Assess - Dietary Evaluation Nutrition/Malnutrition Findings: Nutrition Notes Start: 04/18/21 10:40 Freq: Status: Active Protocol: Document 04/22/21 15:07 PHILLIP (Rec: 04/22/21 15:17 PHILLIP [email or web address]) Nutrition Notes Initial or Follow up Brief Note Current Diet Consistent Carbohydrates Diet (since L 04/16), D Suppl ( since L 04/18). Height 6 ft Weight 167.9 kg [place] Body Weight (kg) 80.90 BMI 50.2 Weight change and time frame 0.071 Kg body weight change in 4 days reported. Weight Status Morbidly Obese Subjective/Other Information RD consult for routine F/U on Dietary assessment. Pt's PO intake of meals has improved, now is Good (75-100% ), according to ADL notes. Percent of energy/protein needs met: Prescribed Consistent Carbohydrates Diet provides for energy/protein needs (2, 061 Kcal/91 g) during LOS; additionally, Dietary Supplements will compensate for possible Poor PO intake of meals with 440 Kcal and 20 g of protein. Current % PO Good (75-100%) Minimum of two criteria No #1 Nutrition Diagnosis Inadequate oral intake Diagnosis Progress(for reassessment Resolved documentation) Nutrition Intervention Change Diet Order: Continue Consistent Carbohydrates Diet. Add Supplement/Snack (indicate name/kcal Continue 8 fl oz Glucerna; BID /protein ) . Provides kCal: 440 Provides Protein (gm) 20 Goal #1 Compensate, through dietary supplementation, for possible poor or insufficient PO intake of meals during LOS. Goal #2 Maintain body weight within +/ -3% of admission body weight during LOS. Revisit per MD consult or patient Sign Off request: Additional Comments Continue monitoring food tolerance, %PO intake of meals , and BM.
[2021-04-24] MEDS: INSULIN LISPRO 100 UNIT/ML SUB-Q SCH ×4 (09:15→23:11)
[2021-04-24] MEDS: DEXAMETHASONE 4 MG TAB PO SCH (09:17)
[2021-04-24] MEDS: ASPIRIN 81 MG TAB CHEW PO SCH (09:18)
[2021-04-24] MEDS: GABAPENTIN 300 MG CAP PO SCH ×3 (09:18→21:42)
[2021-04-24] MEDS: carvediloL 12.5 MG TAB PO SCH ×2 (09:18→21:43)
[2021-04-24] MEDS: ALBUTEROL 8.5 GM MDI INHALATION IH SCH ×3 (10:30→21:09)
[2021-04-24] MEDS ORDERED: ALUM-MAG HYDROXIDE-SIMETHICONE 200-200-20MG/5ML ORAL LIQD 30 ML PO PRN (19:09)
[2021-04-24] MEDS: ENOXAPARIN 40 MG/0.4 ML INJ SUB-Q SCH (21:35)
[2021-04-24] MEDS: MELATONIN 5 MG TAB PO PRN (23:10)
[2021-04-24] MEDS: INSULIN GLARGINE 100 UNITS/ML SUB-Q SCH (23:10)
[2021-04-25] MEDS ORDERED: CETIRIZINE 10 MG TAB PO ONE ×2 (03:50→17:00)
[2021-04-25] MEDS: oxyCODONE /ACETAMINOPHEN 5-325MG TAB PO PRN ×3 (06:47→21:24)
[2021-04-25] MEDS: guaiFENesin 100 MG/5 ML ORAL LIQD PO PRN ×3 (06:47→21:29)
--- NOTE | 2021-04-25 07:43 | Progress Note ---
Assessment and Plan Assessment and plan: Today patient is on Ventimask with 15 L of oxygen, 50% FiO2 and saturating 98% Patient is on dexamethasone remdesivir per protocol, pulmonary following, refusing some therapie -Persistent hypoxia; Morbid obesity/COVID-19/multifocal pneumonia Continuously on 15 L oxygen via Ventimask unable to wean Pulmonary consult. Consider LTAC However patient has no resources Titrate O2 sats to more than 90% Consider BiPAP if needed --Acute hypoxic respiratory failure Patient is on Ventimask settings as above Wean as tolerated, home O2 evaluation prior to discharge Prone positioning --Multifocal pneumonia; Continue empiric antibiotics Check procalcitonin, if normal DC antibiotics Follow cultures --COVID-19 infection -currently on 6 L NC, home O2 eval prior to discharge -CXR shows bilateral infiltrates -patient uses albuterol nebulizer at home, could have underlying COPD or OHS due to size? -COVID PCR positive 04/18/21 Continue dexamethasone 10 days completed remdesivir 5 days -patient feeling better, home O2 eval ordered -albuterol nebs -continue azithromax and rocephin --Type 2 diabetes with neuropathy -outpatient regimen: detemir 20-25 qhs, metformin 1g BID, glipizide 10mg -continue lantus 25U QHS w/ SSI while inpatient -goal glucose 140-180s, uncontrolled blood sugars partly due to steroids -continue gabapentin at home dose --Hypertension/well controlled -continue carvedilol --Hyperlipidemia/low-cholesterol diet -atorvastatin --Obesity/BMI 50.2 Advised dietary modification exercise as tolerated and weight reduction when medically stable -discussed lifestyle modifications (diet, exercise) and the effects of weight l oss on overall health. Advised bariatric surgery consultation for weight reduction program as outpa tient --Possible obstructive sleep apnea; Advised outpatient pulmonary for sleep study to rule out KENDRICK To set up CPAP BiPAP at night and as needed during the day --DVT prophylaxis Subcu Lovenox We will closely monitor the patient and adjust management as needed We will discuss the plan of care with the patient and his nurse Disposition Plan: continue medical management We will try to wean nasal cannula oxygen from 6L to 3 to 4 L Set up home oxygen prior to discharge 04/21/2021; Ventimask 15 L/50%/93 o2 sat/morbid obesity Guarded prognosis 04/22/2021; remains on Ventimask 15 L/50%/96 O2 sat Critically ill with poor prognosis. Wean as tolerated 04/23/2021; patient continues to be on 15 L oxygen Ventimask 50% FiO2 Wean as tolerated, titrate O2 sats to more than 90% Considering LTAC, patient has no resources 04/24/2021; Home O2 evaluation Patient continues to require 15 L on Ventimask Morbidly obese, patient refused high flow NC oxygen 04/25/2021; patient continues to require 15 L of oxygen on Ventimask Resting room air done yesterday was 83% Discussed the case with preparation supervisor Dr. Denise and requested a consult Recommend LTAC, no payer source, however we will place LTAC placement consult Added some antihistamines Zyrtec and some Lasix, closely monitor Morbidly obese, severe COVID-19, hypoxia on 15 L nasal cannula oxygen Critically ill with very poor prognosis Consults and recommendations noted and appreciated Discussed with preparation supervisor Dr. Denise Discussed extensively with ID Dr. Curry. Plan of care reviewed with the patient at and his nurse As well as the case management Critical care time 60 minutes The high probability of a clinically significant, sudden or life threatening deterioration of the [respiratory, infectious, metabolic] system(s) required my full and direct attention, intervention and personal management. The aggregate critical care time was [60] minutes. This time is in addition to time spent performing reported procedures but includes the following: [x] Data Review and interpretation [x] Patient assessment and monitoring of vital signs [x] Documentation [x] Medication orders and management Disposition: Continue medical management, possible LTAC placement however no resources Total Time Spent with Patient (Minutes): 60 History Interval history: I have seen and examined the patient at the bedside Patient is morbidly obese on 15 L Ventimask In mild distress, anxious to go home Hospitalist Physical - Constitutional Vitals: Temp Pulse Resp BP Pulse Ox 98.0 F 62 19 119/73 98 04/25/21 04:28 04/25/21 04:28 04/25/21 06:47 04/25/21 04:28 04/25/21 04:28 General appearance: Present: mild distress, well-nourished, obese (Morbidly obese) - EENT Eyes: Present: PERRL, EOM intact - Neck Neck: Present: supple, normal ROM - Respiratory Respiratory effort: normal Respiratory: bilateral: diminished, rhonchi, negative: rales, wheezing - Cardiovascular Rhythm: regular Heart Sounds: Present: S1 & S2 - Extremities Extremities: no ischemia Extremity abnormal: edema (Trace edema) - Abdominal General gastrointestinal: soft, non-tender, non-distended, normal bowel sounds, other (Obese) - Integumentary Integumentary: Present: clear, warm - Psychiatric Psychiatric: appropriate mood/affect, cooperative - Neurologic Neurologic: moves all extremities HEART Score - HEART Score Troponin: Troponin T < 0.010 ng/mL (0.00-0.029) 04/16/21 06:47 Results - Labs CBC & Chem 7: 04/17/21 03:20 04/21/21 08:38 Labs: Laboratory Last Values WBC 4.1 K/mm3 (4.5-11.0) L 04/17/21 03:20 RBC 4.46 M/mm3 (3.65-5.03) 04/17/21 03:20 Hgb 11.2 gm/dl (11.8-15.2) L 04/17/21 03:20 Hct 36.0 % (35.5-45.6) 04/17/21 03:20 MCV 81 fl (84-94) L 04/17/21 03:20 MCH 25 pg (28-32) L 04/17/21 03:20 MCHC 31 % (32-34) L 04/17/21 03:20 RDW 16.1 % (13.2-15.2) H 04/17/21 03:20 Plt Count 190 K/mm3 (140-440) 04/17/21 03:20 Lymph % (Auto) 22.2 % (13.4-35.0) 04/17/21 03:20 Wise % (Auto) 10.9 % (0.0-7.3) H 04/17/21 03:20 Eos % (Auto) 0.0 % (0.0-4.3) 04/17/21 03:20 Baso % (Auto) 0.2 % (0.0-1.8) 04/17/21 03:20 Lymph # (Auto) 0.9 K/mm3 (1.2-5.4) L 04/17/21 03:20 Wise # (Auto) 0.5 K/mm3 (0.0-0.8) 04/17/21 03:20 Eos # (Auto) 0.0 K/mm3 (0.0-0.4) 04/17/21 03:20 Baso # (Auto) 0.0 K/mm3 (0.0-0.1) 04/17/21 03:20 Seg Neutrophils % 66.7 % (40.0-70.0) 04/17/21 03:20 Seg Neutrophils # 2.8 K/mm3 (1.8-7.7) 04/17/21 03:20 D-Dimer 298.94 ng/mlDDU (0-234) H 04/19/21 10:14 Sodium 136 mmol/L (137-145) L 04/21/21 08:38 Potassium 3.6 mmol/L (3.6-5.0) 04/21/21 08:38 Chloride 96.1 mmol/L (98-107) L 04/21/21 08:38 Carbon Dioxide 24 mmol/L (22-30) 04/21/21 08:38 Anion Gap 20 mmol/L 04/21/21 08:38 BUN 14 mg/dL (9-20) 04/21/21 08:38 Creatinine 0.6 mg/dL (0.8-1.3) L 04/21/21 08:38 Estimated GFR > 60 ml/min 04/21/21 08:38 BUN/Creatinine Ratio 23 % 04/21/21 08:38 Glucose 218 mg/dL (75-100) H 04/21/21 08:38 POC Glucose 194 mg/dL (70-105) H 04/25/21 07:20 Calcium 8.5 mg/dL (8.4-10.2) 04/21/21 08:38 Ferritin 141.4 ng/mL (30.0-300.0) 04/19/21 10:14 Total Bilirubin 0.40 mg/dL (0.1-1.2) 04/21/21 08:38 AST 45 units/L (5-40) H 04/21/21 08:38 ALT 39 units/L (7-56) 04/21/21 08:38 Alkaline Phosphatase 54 units/L (35-129) 04/21/21 08:38 Lactate Dehydrogenase 370 units/L (91-180) H 04/19/21 10:14 Troponin T < 0.010 ng/mL (0.00-0.029) 04/16/21 06:47 C-Reactive Protein 9.90 mg/dL (0.00-1.30) H 04/19/21 10:14 Total Protein 6.7 g/dL (6.3-8.2) 04/21/21 08:38 Albumin 3.5 g/dL (3.9-5) L 04/21/21 08:38 Albumin/Globulin Ratio 1.1 % 04/21/21 08:38 Procalcitonin 0.17 ng/mL (<0.15) 04/16/21 06:47 Coronavirus (PCR) Positive (Negative) A 04/18/21 10:00 Smith/IV: Voiding Method Urinal Active Medications - Current Medications Current Medications: Generic Name Dose Route Start Last Admin Trade Name Freq PRN Reason Stop Dose Admin Acetaminophen 650 mg 04/16/21 09:16 Acetaminophen 325 Mg Tab PO Q4H PRN Pain MILD(1-3)/Fever >100.5/ADDISON Al Hydrox/Mg Hydrox/Simethicone 30 ml 04/24/21 19:09 04/24/21 20:23 Alum-Mag Hydroxide-Simethicone 185-935-08pm/5ml Oral Liqd 30 Ml PO 30 ml Q4H PRN Administration Indigestion Albuterol 2 puff 04/17/21 08:00 04/24/21 21:09 Albuterol 8.5 Gm Mdi Inhalation IH 2 puff TIDRT EDILBERTO Administration Albuterol 2.5 mg 04/17/21 18:00 Albuterol 2.5 Mg/3 Ml Nebu IH QID PRN Wheezing Aspirin 81 mg 04/18/21 10:00 04/24/21 09:18 Aspirin 81 Mg Tab Chew PO 81 mg QDAY EDILBERTO Administration Atorvastatin Calcium 20 mg 04/17/21 22:00 04/24/21 21:43 Atorvastatin 20 Mg Tab PO 20 mg QHS EDILBERTO Administration Carvedilol 12.5 mg 04/17/21 22:00 04/24/21 21:43 Carvedilol 12.5 Mg Tab PO 12.5 mg BID EDILBERTO Administration Dexamethasone 6 mg 04/18/21 17:00 04/24/21 09:17 Dexamethasone 4 Mg Tab PO 04/27/21 10:01 6 mg QDAY EDILBERTO Administration Dextrose 50 ml 04/16/21 15:59 Dextrose 50% In Water (25gm) 50 Ml Syringe IV Q30MIN PRN Hypoglycemia Protocol Enoxaparin Sodium 40 mg 04/17/21 22:00 04/24/21 21:35 Enoxaparin 40 Mg/0.4 Ml Inj SUB-Q 40 mg QDAY@2200 EDILBERTO Administration Protocol Gabapentin 300 mg 04/17/21 20:00 04/24/21 21:42 Gabapentin 300 Mg Cap PO 300 mg TID EDILBERTO Administration Guaifenesin 200 mg 04/17/21 18:53 04/25/21 06:47 Guaifenesin 100 Mg/5 Ml Oral Liqd PO 200 mg Q4H PRN Administration Cough Insulin Glargine 25 units 04/18/21 22:00 04/24/21 23:10 Insulin Glargine 100 Units/Ml SUB-Q 25 units QHS EDILBERTO Administration Insulin Human Lispro 0 unit 04/16/21 16:30 04/24/21 23:11 Insulin Lispro 100 Unit/Ml SUB-Q 4 unit ACHS EDILBERTO Administration Protocol Melatonin 5 mg 04/17/21 01:09 04/24/21 23:10 Melatonin 5 Mg Tab PO 5 mg QHS PRN Administration Sleep Morphine Sulfate 4 mg 04/16/21 09:16 Morphine 4 Mg/1 Ml Inj IV Q4H PRN Pain , Severe (7-10) Naloxone HCl 0.1 mg 04/16/21 09:16 Naloxone 0.4 Mg/1 Ml Inj IV Q2MIN PRN Res Rate </= 8 or 02 SAT < 92% Ondansetron HCl 4 mg 04/16/21 09:16 Ondansetron 4 Mg/2 Ml Inj IV Q8H PRN Nausea And Vomiting Oxycodone/Acetaminophen 1 tab 04/16/21 09:16 04/25/21 06:47 Oxycodone /Acetaminophen 5-325mg Tab PO 1 tab Q6H PRN Administration Pain, Moderate (4-6) Sodium Chloride 10 ml 04/16/21 10:00 04/25/21 06:48 Sodium Chloride 0.9% 10 Ml Flush Syringe IV 10 ml BID EDILBERTO Administration Sodium Chloride 10 ml 04/16/21 09:16 Sodium Chloride 0.9% 10 Ml Flush Syringe IV PRN PRN LINE FLUSH Nutrition/Malnutrition Assess - Dietary Evaluation Nutrition/Malnutrition Findings: Nutrition Notes Start: 04/18/21 10:40 Freq: Status: Active Protocol: Document 04/22/21 15:07 PHILLIP (Rec: 04/22/21 15:17 PHILLIP [id number]) Nutrition Notes Initial or Follow up Brief Note Current Diet Consistent Carbohydrates Diet (since L 04/16), D Suppl ( since L 04/18). Height 6 ft Weight 167.9 kg Solo Body Weight (kg) 80.90 BMI 50.2 Weight change and time frame 0.071 Kg body weight change in 4 days reported. Weight Status Morbidly Obese Subjective/Other Information RD consult for routine F/U on Dietary assessment. Pt's PO intake of meals has improved, now is Good (75-100% ), according to ADL notes. Percent of energy/protein needs met: Prescribed Consistent Carbohydrates Diet provides for energy/protein needs (2, 061 Kcal/91 g) during LOS; additionally, Dietary Supplements will compensate for possible Poor PO intake of meals with 440 Kcal and 20 g of protein. Current % PO Good (75-100%) Minimum of two criteria No #1 Nutrition Diagnosis Inadequate oral intake Diagnosis Progress(for reassessment Resolved documentation) Nutrition Intervention Change Diet Order: Continue Consistent Carbohydrates Diet. Add Supplement/Snack (indicate name/kcal Continue 8 fl oz Glucerna; BID /protein ) . Provides kCal: 440 Provides Protein (gm) 20 Goal #1 Compensate, through dietary supplementation, for possible poor or insufficient PO intake of meals during LOS. Goal #2 Maintain body weight within +/ -3% of admission body weight during LOS. Revisit per MD consult or patient Sign Off request: Additional Comments Continue monitoring food tolerance, %PO intake of meals , and BM.
--- NOTE | 2021-04-25 09:06 | XRay Report ---
CHEST 1 VIEW, 04/25/2021 8:32 AM CLINICAL INFORMATION/INDICATION: Shortness of breath. COVID infection. COMPARISON: Chest radiograph, 04/16/2021 at 3:26 AM FINDINGS: SUPPORT DEVICES: None. HEART: The cardiac silhouette is upper limits of normal in size. LUNGS/PLEURA: Diffuse patchy bilateral pulmonary opacities are again noted and have not significantly changed when allowing for differences in technique. ADDITIONAL FINDINGS: No additional acute findings. IMPRESSION: 1. Overall stable appearance of patchy bilateral pulmonary opacities. Signer Name: Elva Rahman MD Signed: 04/25/2021 9:01 AM Workstation Name: [id number]
[2021-04-25] MEDS: GABAPENTIN 300 MG CAP PO SCH ×3 (09:07→21:23)
[2021-04-25] MEDS: carvediloL 12.5 MG TAB PO SCH ×2 (09:07→21:30)
[2021-04-25] MEDS: DEXAMETHASONE 4 MG TAB PO SCH (09:07)
[2021-04-25] MEDS: ASPIRIN 81 MG TAB CHEW PO SCH (09:08)
[2021-04-25] MEDS: INSULIN LISPRO 100 UNIT/ML SUB-Q SCH ×4 (09:08→21:44)
[2021-04-25] MEDS: ALBUTEROL 8.5 GM MDI INHALATION IH SCH ×3 (10:22→20:33)
[2021-04-25] MEDS ORDERED: FUROSEMIDE 40 MG/4 ML INJ IV ONE (12:09)
--- NOTE | 2021-04-25 13:40 | Consultation ---
History of Present Illness - Reason for Consult Consult date: 04/25/21 COVID-19 Requesting physician: SUSI LYNCH - History of Present Illness The patient is a 56-year-old male with hypertension, diabetes mellitus type 2, morbid obesity admitted with COVID-19 pneumonia and acute hypoxic respiratory failure. Remains afebrile. Completed Remdesivir. Has been on steroids. Remains on Ventimask, infectious diseases was consulted for additional evaluation. Initial labs showed leukopenia, D-dimer 298, CRP was 9.9, ferritin 141, LDH 370. Chest x-ray shows patchy. Procalcitonin 0.17 bilateral pneumonia Review of Systems: reviewed in the chart, unable to obtain, minimize risk of transmission Medications and Allergies Allergies Allergy/AdvReac Type Severity Reaction Status Date / Time No Known Allergies Allergy Verified 04/17/21 14:15 Home Medications Medication Instructions Recorded Confirmed Last Taken Type Omeprazole [Prilosec] 40 mg PO QDAY 04/15/13 04/17/21 Unknown History Albuterol Mdi (or & Nicu Only) 2 puff IH QID PRN #1 inhalation 02/10/17 04/17/21 Unknown Rx [ProAir HFA Inhaler] ALBUTEROL NEB's [Proventil 0.083% 2.5 mg IH QID PRN 04/17/21 04/17/21 Unknown History NEBS] Ascorbic Acid/Ascorbate Sodium 500 mg PO QDAY 04/17/21 04/17/21 Unknown History [Vitamin C 500 mg Tablet Chew] Aspirin [Aspirin BABY CHEW TAB] 81 mg PO QDAY 04/17/21 04/17/21 Unknown History Ergocalciferol [Vitamin D2] 1 cap PO QWEEK 04/17/21 04/17/21 Unknown History Gabapentin 300 mg PO TID 04/17/21 04/17/21 Unknown History Ibuprofen/Pseudoephedrine HCl 1 each PO Q6H PRN 04/17/21 04/17/21 Unknown History [Advil Cold & Sinus Caplet] Insulin Detemir [Levemir Flextouch] 20 - 25 units SQ QHS 04/17/21 04/17/21 Unknown History Meloxicam [Mobic] 15 mg PO QDAY 04/17/21 04/17/21 Unknown History Metformin HCl [metFORMIN] 1,000 mg PO BIDAC 04/17/21 04/17/21 Unknown History Multivitamin 1 each PO QDAY 04/17/21 04/17/21 Unknown History Coalgood-3 Fatty Acids/Fish Oil [Fish 1 each PO QDAY 04/17/21 04/17/21 Unknown History Oil 1,000 mg Capsule] Potassium 99 mg PO QDAY 04/17/21 04/17/21 Unknown History Pravastatin Sodium [Pravastatin] 40 mg PO QHS 04/17/21 04/17/21 Unknown History Zinc [Zinc 50mg TAB] 50 mg PO QDAY 04/17/21 04/17/21 Unknown History carvediloL [Coreg] 12.5 mg PO BID 04/17/21 04/17/21 Unknown History glipiZIDE [Glucotrol] 10 mg PO TID 04/17/21 04/17/21 Unknown History Active Meds: Active Medications Acetaminophen (Acetaminophen 325 Mg Tab) 650 mg PO Q4H PRN PRN Reason: Pain MILD(1-3)/Fever >100.5/ADDISON Al Hydrox/Mg Hydrox/Simethicone (Alum-Mag Hydroxide-Simethicone 834-975-94gh/5ml Oral Liqd 30 Ml) 30 ml PO Q4H PRN PRN Reason: Indigestion Last Admin: 04/24/21 20:23 Dose: 30 ml Albuterol (Albuterol 8.5 Gm Mdi Inhalation) 2 puff IH TIDRT [facility] Last Admin: 04/25/21 10:22 Dose: 2 puff Albuterol (Albuterol 2.5 Mg/3 Ml Nebu) 2.5 mg IH QID PRN PRN Reason: Wheezing Aspirin (Aspirin 81 Mg Tab Chew) 81 mg PO QDAY [facility] Last Admin: 04/25/21 09:08 Dose: 81 mg Atorvastatin Calcium (Atorvastatin 20 Mg Tab) 20 mg PO QHS [facility] Last Admin: 04/24/21 21:43 Dose: 20 mg Carvedilol (Carvedilol 12.5 Mg Tab) 12.5 mg PO BID [facility] Last Admin: 04/25/21 09:07 Dose: 12.5 mg Dexamethasone (Dexamethasone 4 Mg Tab) 6 mg PO QDAY [facility] Stop: 04/27/21 10:01 Last Admin: 04/25/21 09:07 Dose: 6 mg Dextrose (Dextrose 50% In Water (25gm) 50 Ml Syringe) 50 ml IV Q30MIN PRN; Protocol PRN Reason: Hypoglycemia Enoxaparin Sodium (Enoxaparin 40 Mg/0.4 Ml Inj) 40 mg SUB-Q QDAY@2200 [facility]; Protocol Last Admin: 04/24/21 21:35 Dose: 40 mg Furosemide (Furosemide 40 Mg/4 Ml Inj) 40 mg IV QDAY [facility] Gabapentin (Gabapentin 300 Mg Cap) 300 mg PO TID [facility] Last Admin: 04/25/21 09:07 Dose: 300 mg Guaifenesin (Guaifenesin 100 Mg/5 Ml Oral Liqd) 200 mg PO Q4H PRN PRN Reason: Cough Last Admin: 04/25/21 06:47 Dose: 200 mg Insulin Glargine (Insulin Glargine 100 Units/Ml) 25 units SUB-Q QHS [facility] Last Admin: 04/24/21 23:10 Dose: 25 units Insulin Human Lispro (Insulin Lispro 100 Unit/Ml) 0 unit SUB-Q ACHS [facility]; Protocol Last Admin: 04/25/21 11:25 Dose: 4 unit Melatonin (Melatonin 5 Mg Tab) 5 mg PO QHS PRN PRN Reason: Sleep Last Admin: 04/24/21 23:10 Dose: 5 mg Morphine Sulfate (Morphine 4 Mg/1 Ml Inj) 4 mg IV Q4H PRN PRN Reason: Pain , Severe (7-10) Naloxone HCl (Naloxone 0.4 Mg/1 Ml Inj) 0.1 mg IV Q2MIN PRN PRN Reason: Res Rate </= 8 or 02 SAT < 92% Ondansetron HCl (Ondansetron 4 Mg/2 Ml Inj) 4 mg IV Q8H PRN PRN Reason: Nausea And Vomiting Oxycodone/Acetaminophen (Oxycodone /Acetaminophen 5-325mg Tab) 1 tab PO Q6H PRN PRN Reason: Pain, Moderate (4-6) Last Admin: 04/25/21 06:47 Dose: 1 tab Sodium Chloride (Sodium Chloride 0.9% 10 Ml Flush Syringe) 10 ml IV BID [facility] Last Admin: 04/25/21 09:10 Dose: 10 ml Sodium Chloride (Sodium Chloride 0.9% 10 Ml Flush Syringe) 10 ml IV PRN PRN PRN Reason: LINE FLUSH Physical Examination - Physical Exam Narrative exam: Physical Exam (reviewed in chart to minimize risk of transmission) Constitutional: deferred Head, Ears, Nose: deferred Eyes: deferred Neck: deferred Oral: deferred Cardiovascular: deferred Respiratory: deferred GI: deferred Musculoskeletal: deferred Skin: deferred Hem/Lymphatic: deferred Psych: deferred Neurological: deferred - Constitutional Vitals: Vital Signs Temp Pulse Resp BP Pulse Ox 97.0 F L 64 22 120/64 97 04/25/21 10:56 04/25/21 10:56 04/25/21 10:56 04/25/21 10:56 04/25/21 10:56 Temperature -Last 24 Hours Temperature 97.0 F Temperature 98.0 F Temperature 97.5 F Temperature 98 F Results - Labs CBC & Chem 7: 04/17/21 03:20 04/21/21 08:38 Labs: Abnormal lab results 04/24/21 04/24/21 04/25/21 Range/Units 16:47 22:39 07:20 POC Glucose 304 H 252 H 194 H (70-105) mg/dL 04/25/21 Range/Units 10:58 POC Glucose 251 H (70-105) mg/dL - Imaging and Cardiology Chest x-ray: report reviewed, image reviewed (b/l patchy pna) Assessment and Plan Cultures: SARS CoV2 PCR: Positive A/P: 56/M with: #Bilateral pneumonia: Secondary to COVID-19 #Acute hypoxic respiratory failure: Remains on Ventimask. #Diabetes mellitus type 2 #Hypertension #Morbid obesity Recs: -Continue IV/PO Dexamethasone x 10 days, considering morbid obesity, Decadron dose increased -Already completed Remdesivir -Does not meet hospital criteria for Actemra -prophylactic anticoagulation based on d-dimer per hospital protocol -Procalcitonin low, no antibiotics indicated -Guarded prognosis Natasha Curry MD, FACP, [facility] O: [phone] F: [phone]
[2021-04-25 15:37] LABS: C-Reactive Protein 2.7 mg/dL (0.00-1.30)
[2021-04-25] MEDS: ENOXAPARIN 40 MG/0.4 ML INJ SUB-Q SCH (21:23)
[2021-04-25] MEDS: MELATONIN 5 MG TAB PO PRN (21:24)
[2021-04-25] MEDS: INSULIN GLARGINE 100 UNITS/ML SUB-Q SCH (21:40)
--- NOTE | 2021-04-25 22:55 | Progress Note ---
Assessment and Plan Assessment and plan: Today patient is on Ventimask with 15 L of oxygen, 50% FiO2 and saturating 96% Patient is on dexamethasone remdesivir per protocol, pulmonary following, refusing some therapie -Persistent hypoxia; Morbid obesity/COVID-19/multifocal pneumonia Continuously on 15 L oxygen via Ventimask unable to wean Pulmonary consult. Consider LTAC However patient has no resources Titrate O2 sats to more than 90% Consider BiPAP if needed --Acute hypoxic respiratory failure Patient is on Ventimask settings as above Wean as tolerated, home O2 evaluation prior to discharge Prone positioning --Multifocal pneumonia; Continue empiric antibiotics Check procalcitonin, if normal DC antibiotics Follow cultures --COVID-19 infection -currently on 6 L NC, home O2 eval prior to discharge -CXR shows bilateral infiltrates -patient uses albuterol nebulizer at home, could have underlying COPD or OHS due to size? -COVID PCR positive 04/18/21 Continue dexamethasone 10 days completed remdesivir 5 days -patient feeling better, home O2 eval ordered -albuterol nebs -continue azithromax and rocephin --Type 2 diabetes with neuropathy -outpatient regimen: detemir 20-25 qhs, metformin 1g BID, glipizide 10mg -continue lantus 25U QHS w/ SSI while inpatient -goal glucose 140-180s, uncontrolled blood sugars partly due to steroids -continue gabapentin at home dose --Hypertension/well controlled -continue carvedilol --Hyperlipidemia/low-cholesterol diet -atorvastatin --Obesity/BMI 50.2 Advised dietary modification exercise as tolerated and weight reduction when medically stable -discussed lifestyle modifications (diet, exercise) and the effects of weight l oss on overall health. Advised bariatric surgery consultation for weight reduction program as outpa tient --Possible obstructive sleep apnea; Advised outpatient pulmonary for sleep study to rule out KENDRICK To set up CPAP BiPAP at night and as needed during the day --DVT prophylaxis Subcu Lovenox We will closely monitor the patient and adjust management as needed We will discuss the plan of care with the patient and his nurse Disposition Plan: continue medical management We will try to wean nasal cannula oxygen from 6L to 3 to 4 L Set up home oxygen prior to discharge 04/21/2021; Ventimask 15 L/50%/93 o2 sat/morbid obesity Guarded prognosis 04/22/2021; remains on Ventimask 15 L/50%/96 O2 sat Critically ill with poor prognosis. Wean as tolerated 04/23/2021; patient continues to be on 15 L oxygen Ventimask 50% FiO2 Wean as tolerated, titrate O2 sats to more than 90% Considering LTAC, patient has no resources 04/24/2021; Home O2 evaluation Patient continues to require 15 L on Ventimask Morbidly obese, patient refused high flow NC oxygen 04/25/2021; patient continues to require 15 L of oxygen on Ventimask Resting room air done yesterday was 83% Discussed the case with gusset maker Dr. Denise and requested a consult Recommend LTAC, no payer source, however we will place LTAC placement consult Added some antihistamines Zyrtec and some Lasix, closely monitor 04/26/2021; patient remains on 15 L O2/Ventimask/50 FiO2/96 O2 sats Morbidly obese, severe COVID-19, hypoxia on 15 L nasal cannula oxygen Critically ill with very poor prognosis Consults and recommendations noted and appreciated Pulmonary and ID following Recommendations noted and appreciated Plan of care reviewed with the patient at and his nurse As well as the case management Critical care time 60 minutes The high probability of a clinically significant, sudden or life threatening deterioration of the [respiratory, infectious, metabolic] system(s) required my full and direct attention, intervention and personal management. The aggregate critical care time was [45] minutes. This time is in addition to time spent performing reported procedures but includes the following: [x] Data Review and interpretation [x] Patient assessment and monitoring of vital signs [x] Documentation [x] Medication orders and management Disposition: Continue medical management, possible LTAC placement however no resources Total Time Spent with Patient (Minutes): 45 History Interval history: I have seen and examined the patient at the bedside Isolation precautions PPE protocols strictly followed per CDC guidelines Patient remains critically ill ,on high-dose oxygen 15 L on Ventimask Unable to wean, morbidly obese Complains of shortness of breath and restlessness Hospitalist Physical - Constitutional Vitals: Temp Pulse Resp BP Pulse Ox 97.3 F L 71 16 110/56 96 04/25/21 20:03 04/25/21 21:30 04/25/21 20:03 04/25/21 21:30 04/25/21 20:38 General appearance: Present: mild distress, well-nourished, obese (Morbidly obese) - EENT Eyes: Present: PERRL, EOM intact - Neck Neck: Present: supple, normal ROM - Respiratory Respiratory effort: normal Respiratory: bilateral: diminished, rhonchi, negative: rales, wheezing - Cardiovascular Rhythm: regular Heart Sounds: Present: S1 & S2 - Extremities Extremities: no ischemia, No edema - Abdominal General gastrointestinal: soft, non-tender, non-distended, normal bowel sounds - Integumentary Integumentary: Present: clear, warm - Psychiatric Psychiatric: appropriate mood/affect, cooperative - Neurologic Neurologic: moves all extremities HEART Score - HEART Score Troponin: Troponin T < 0.010 ng/mL (0.00-0.029) 04/16/21 06:47 Results - Labs CBC & Chem 7: 04/17/21 03:20 04/21/21 08:38 Labs: Laboratory Last Values WBC 4.1 K/mm3 (4.5-11.0) L 04/17/21 03:20 RBC 4.46 M/mm3 (3.65-5.03) 04/17/21 03:20 Hgb 11.2 gm/dl (11.8-15.2) L 04/17/21 03:20 Hct 36.0 % (35.5-45.6) 04/17/21 03:20 MCV 81 fl (84-94) L 04/17/21 03:20 MCH 25 pg (28-32) L 04/17/21 03:20 MCHC 31 % (32-34) L 04/17/21 03:20 RDW 16.1 % (13.2-15.2) H 04/17/21 03:20 Plt Count 190 K/mm3 (140-440) 04/17/21 03:20 Lymph % (Auto) 22.2 % (13.4-35.0) 04/17/21 03:20 [place] % (Auto) 10.9 % (0.0-7.3) H 04/17/21 03:20 Eos % (Auto) 0.0 % (0.0-4.3) 04/17/21 03:20 Baso % (Auto) 0.2 % (0.0-1.8) 04/17/21 03:20 Lymph # (Auto) 0.9 K/mm3 (1.2-5.4) L 04/17/21 03:20 [place] # (Auto) 0.5 K/mm3 (0.0-0.8) 04/17/21 03:20 Eos # (Auto) 0.0 K/mm3 (0.0-0.4) 04/17/21 03:20 Baso # (Auto) 0.0 K/mm3 (0.0-0.1) 04/17/21 03:20 Seg Neutrophils % 66.7 % (40.0-70.0) 04/17/21 03:20 Seg Neutrophils # 2.8 K/mm3 (1.8-7.7) 04/17/21 03:20 D-Dimer 931.74 ng/mlDDU (0-234) H 04/25/21 14:47 Sodium 136 mmol/L (137-145) L 04/21/21 08:38 Potassium 3.6 mmol/L (3.6-5.0) 04/21/21 08:38 Chloride 96.1 mmol/L (98-107) L 04/21/21 08:38 Carbon Dioxide 24 mmol/L (22-30) 04/21/21 08:38 Anion Gap 20 mmol/L 04/21/21 08:38 BUN 14 mg/dL (9-20) 04/21/21 08:38 Creatinine 0.6 mg/dL (0.8-1.3) L 04/21/21 08:38 Estimated GFR > 60 ml/min 04/21/21 08:38 BUN/Creatinine Ratio 23 % 04/21/21 08:38 Glucose 218 mg/dL (75-100) H 04/21/21 08:38 POC Glucose 304 mg/dL (70-105) H 04/25/21 21:39 Calcium 8.5 mg/dL (8.4-10.2) 04/21/21 08:38 Ferritin 89.5 ng/mL (30.0-300.0) 04/25/21 14:47 Total Bilirubin 0.40 mg/dL (0.1-1.2) 04/21/21 08:38 AST 45 units/L (5-40) H 04/21/21 08:38 ALT 39 units/L (7-56) 04/21/21 08:38 Alkaline Phosphatase 54 units/L (35-129) 04/21/21 08:38 Lactate Dehydrogenase 413 units/L (91-180) H 04/25/21 14:47 Troponin T < 0.010 ng/mL (0.00-0.029) 04/16/21 06:47 C-Reactive Protein 2.70 mg/dL (0.00-1.30) H 04/25/21 14:47 Total Protein 6.7 g/dL (6.3-8.2) 04/21/21 08:38 Albumin 3.5 g/dL (3.9-5) L 04/21/21 08:38 Albumin/Globulin Ratio 1.1 % 04/21/21 08:38 Procalcitonin 0.17 ng/mL (<0.15) 04/16/21 06:47 Coronavirus (PCR) Positive (Negative) A 04/18/21 10:00 Smith/IV: Voiding Method Urinal Active Medications - Current Medications Current Medications: Generic Name Dose Route Start Last Admin Trade Name Freq PRN Reason Stop Dose Admin Acetaminophen 650 mg 04/16/21 09:16 Acetaminophen 325 Mg Tab PO Q4H PRN Pain MILD(1-3)/Fever >100.5/ADDISON Al Hydrox/Mg Hydrox/Simethicone 30 ml 04/24/21 19:09 04/24/21 20:23 Alum-Mag Hydroxide-Simethicone [phone]/5ml Oral Liqd 30 Ml PO 30 ml Q4H PRN Administration Indigestion Albuterol 2 puff 04/17/21 08:00 04/25/21 20:33 Albuterol 8.5 Gm Mdi Inhalation IH 2 puff TIDRT EDILBERTO Administration Albuterol 2.5 mg 04/17/21 18:00 Albuterol 2.5 Mg/3 Ml Nebu IH QID PRN Wheezing Aspirin 81 mg 04/18/21 10:00 04/25/21 09:08 Aspirin 81 Mg Tab Chew PO 81 mg QDAY EDILBERTO Administration Atorvastatin Calcium 20 mg 04/17/21 22:00 04/25/21 21:24 Atorvastatin 20 Mg Tab PO 20 mg QHS EDILBERTO Administration Carvedilol 12.5 mg 04/17/21 22:00 04/25/21 21:30 Carvedilol 12.5 Mg Tab PO 12.5 mg BID EDILBERTO Administration Cetirizine HCl 10 mg 04/26/21 10:00 Cetirizine 10 Mg Tab PO QDAY EDILBERTO Dextrose 50 ml 04/16/21 15:59 Dextrose 50% In Water (25gm) 50 Ml Syringe IV Q30MIN PRN Hypoglycemia Protocol Enoxaparin Sodium 40 mg 04/17/21 22:00 04/25/21 21:23 Enoxaparin 40 Mg/0.4 Ml Inj SUB-Q 40 mg QDAY@2200 [facility] Administration Protocol Furosemide 40 mg 04/26/21 10:00 Furosemide 40 Mg/4 Ml Inj IV QDAY EDILBERTO Gabapentin 300 mg 04/17/21 20:00 04/25/21 21:23 Gabapentin 300 Mg Cap PO 300 mg TID EDILBERTO Administration Glipizide 10 mg 04/26/21 08:00 Glipizide 10 Mg Tab PO BIDDIAB EDILBERTO Guaifenesin 200 mg 04/17/21 18:53 04/25/21 21:29 Guaifenesin 100 Mg/5 Ml Oral Liqd PO 200 mg Q4H PRN Administration Cough Insulin Glargine 25 units 04/18/21 22:00 04/25/21 21:40 Insulin Glargine 100 Units/Ml SUB-Q 25 units QHS EDILBERTO Administration Insulin Human Lispro 0 unit 04/16/21 16:30 04/25/21 21:44 Insulin Lispro 100 Unit/Ml SUB-Q 6 unit ACHS EDILBERTO Administration Protocol Melatonin 5 mg 04/17/21 01:09 04/25/21 21:24 Melatonin 5 Mg Tab PO 5 mg QHS PRN Administration Sleep Morphine Sulfate 4 mg 04/16/21 09:16 Morphine 4 Mg/1 Ml Inj IV Q4H PRN Pain , Severe (7-10) Naloxone HCl 0.1 mg 04/16/21 09:16 Naloxone 0.4 Mg/1 Ml Inj IV Q2MIN PRN Res Rate </= 8 or 02 SAT < 92% Ondansetron HCl 4 mg 04/16/21 09:16 Ondansetron 4 Mg/2 Ml Inj IV Q8H PRN Nausea And Vomiting Oxycodone/Acetaminophen 1 tab 04/16/21 09:16 04/25/21 21:24 Oxycodone /Acetaminophen 5-325mg Tab PO 1 tab Q6H PRN Administration Pain, Moderate (4-6) Sodium Chloride 10 ml 04/16/21 10:00 04/25/21 21:42 Sodium Chloride 0.9% 10 Ml Flush Syringe IV 10 ml BID EDILBERTO Administration Sodium Chloride 10 ml 04/16/21 09:16 Sodium Chloride 0.9% 10 Ml Flush Syringe IV PRN PRN LINE FLUSH Nutrition/Malnutrition Assess - Dietary Evaluation Nutrition/Malnutrition Findings: Nutrition Notes Start: 04/18/21 10:40 Freq: Status: Active Protocol: Document 04/22/21 15:07 PHILLIP (Rec: 04/22/21 15:17 PHILLIP [id number]) Nutrition Notes Initial or Follow up Brief Note Current Diet Consistent Carbohydrates Diet (since L 04/16), D Suppl ( since L 04/18). Height 6 ft Weight 167.9 kg [place] Body Weight (kg) 80.90 BMI 50.2 Weight change and time frame 0.071 Kg body weight change in 4 days reported. Weight Status Morbidly Obese Subjective/Other Information RD consult for routine F/U on Dietary assessment. Pt's PO intake of meals has improved, now is Good (75-100% ), according to ADL notes. Percent of energy/protein needs met: Prescribed Consistent Carbohydrates Diet provides for energy/protein needs (2, 061 Kcal/91 g) during LOS; additionally, Dietary Supplements will compensate for possible Poor PO intake of meals with 440 Kcal and 20 g of protein. Current % PO Good (75-100%) Minimum of two criteria No #1 Nutrition Diagnosis Inadequate oral intake Diagnosis Progress(for reassessment Resolved documentation) Nutrition Intervention Change Diet Order: Continue Consistent Carbohydrates Diet. Add Supplement/Snack (indicate name/kcal Continue 8 fl oz Glucerna; BID /protein ) . Provides kCal: 440 Provides Protein (gm) 20 Goal #1 Compensate, through dietary supplementation, for possible poor or insufficient PO intake of meals during LOS. Goal #2 Maintain body weight within +/ -3% of admission body weight during LOS. Revisit per MD consult or patient Sign Off request: Additional Comments Continue monitoring food tolerance, %PO intake of meals , and BM.
[2021-04-25] MEDS ORDERED: FUROSEMIDE 20 MG/2 ML INJ IV ONE (23:06)
--- NOTE | 2021-04-25 23:40 | Consultation ---
History of Present Illness Consult date: 04/25/21 Requesting physician: SUSI LYNCH Reason for consult: hypoxemia History of present illness: 56 y/o morbidly obese male admitted several days ago with acute respiratory failure secondary to COVID pneumonia. Patient was down to 6 liters but then 2-3 days ago oxygen requirement began to increase and now on 115 liter venturi mask. Patient is morbidly obese but denies any post medical history of lung disease. He is a former smoker of 30 years but quit 5 years. He carries no diagnosis of COPD. No diagnosis of KENDRICK as well. Currently sitting up in chair with complaints of sore bottom and overall pain. Remainder of the review is negative. Past History Past Medical History: GERD Social history: smoking (quit 5 years ago but smoked for 30 years) Medications and Allergies Allergies Allergy/AdvReac Type Severity Reaction Status Date / Time No Known Allergies Allergy Verified 04/17/21 14:15 Home Medications Medication Instructions Recorded Confirmed Last Taken Type Omeprazole [Prilosec] 40 mg PO QDAY 04/15/13 04/17/21 Unknown History Albuterol Mdi (or & Nicu Only) 2 puff IH QID PRN #1 inhalation 02/10/17 04/17/21 Unknown Rx [ProAir HFA Inhaler] ALBUTEROL NEB's [Proventil 0.083% 2.5 mg IH QID PRN 04/17/21 04/17/21 Unknown History NEBS] Ascorbic Acid/Ascorbate Sodium 500 mg PO QDAY 04/17/21 04/17/21 Unknown History [Vitamin C 500 mg Tablet Chew] Aspirin [Aspirin BABY CHEW TAB] 81 mg PO QDAY 04/17/21 04/17/21 Unknown History Ergocalciferol [Vitamin D2] 1 cap PO QWEEK 04/17/21 04/17/21 Unknown History Gabapentin 300 mg PO TID 04/17/21 04/17/21 Unknown History Ibuprofen/Pseudoephedrine HCl 1 each PO Q6H PRN 04/17/21 04/17/21 Unknown History [Advil Cold & Sinus Caplet] Insulin Detemir [Levemir Flextouch] 20 - 25 units SQ QHS 04/17/21 04/17/21 Unknown History Meloxicam [Mobic] 15 mg PO QDAY 04/17/21 04/17/21 Unknown History Metformin HCl [metFORMIN] 1,000 mg PO BIDAC 04/17/21 04/17/21 Unknown History Multivitamin 1 each PO QDAY 04/17/21 04/17/21 Unknown History [place]-3 Fatty Acids/Fish Oil [Fish 1 each PO QDAY 04/17/21 04/17/21 Unknown History Oil 1,000 mg Capsule] Potassium 99 mg PO QDAY 04/17/21 04/17/21 Unknown History Pravastatin Sodium [Pravastatin] 40 mg PO QHS 04/17/21 04/17/21 Unknown History Zinc [Zinc 50mg TAB] 50 mg PO QDAY 04/17/21 04/17/21 Unknown History carvediloL [Coreg] 12.5 mg PO BID 04/17/21 04/17/21 Unknown History glipiZIDE [Glucotrol] 10 mg PO TID 04/17/21 04/17/21 Unknown History Active Meds: Active Medications Acetaminophen (Acetaminophen 325 Mg Tab) 650 mg PO Q4H PRN PRN Reason: Pain MILD(1-3)/Fever >100.5/ADDISON Al Hydrox/Mg Hydrox/Simethicone (Alum-Mag Hydroxide-Simethicone [phone]/5ml Oral Liqd 30 Ml) 30 ml PO Q4H PRN PRN Reason: Indigestion Last Admin: 04/24/21 20:23 Dose: 30 ml Albuterol (Albuterol 8.5 Gm Mdi Inhalation) 2 puff IH TIDRT [facility] Last Admin: 04/25/21 20:33 Dose: 2 puff Albuterol (Albuterol 2.5 Mg/3 Ml Nebu) 2.5 mg IH QID PRN PRN Reason: Wheezing Aspirin (Aspirin 81 Mg Tab Chew) 81 mg PO QDAY [facility] Last Admin: 04/25/21 09:08 Dose: 81 mg Atorvastatin Calcium (Atorvastatin 20 Mg Tab) 20 mg PO QHS [facility] Last Admin: 04/25/21 21:24 Dose: 20 mg Carvedilol (Carvedilol 12.5 Mg Tab) 12.5 mg PO BID [facility] Last Admin: 04/25/21 21:30 Dose: 12.5 mg Cetirizine HCl (Cetirizine 10 Mg Tab) 10 mg PO QDAY [facility] Dextrose (Dextrose 50% In Water (25gm) 50 Ml Syringe) 50 ml IV Q30MIN PRN; Protocol PRN Reason: Hypoglycemia Enoxaparin Sodium (Enoxaparin 40 Mg/0.4 Ml Inj) 40 mg SUB-Q QDAY@2200 [facility]; Protocol Last Admin: 04/25/21 21:23 Dose: 40 mg Furosemide (Furosemide 40 Mg/4 Ml Inj) 40 mg IV QDAY [facility] Gabapentin (Gabapentin 300 Mg Cap) 300 mg PO TID [facility] Last Admin: 04/25/21 21:23 Dose: 300 mg Glipizide (Glipizide 10 Mg Tab) 10 mg PO BIDDIAB [facility] Guaifenesin (Guaifenesin 100 Mg/5 Ml Oral Liqd) 200 mg PO Q4H PRN PRN Reason: Cough Last Admin: 04/25/21 21:29 Dose: 200 mg Insulin Glargine (Insulin Glargine 100 Units/Ml) 25 units SUB-Q QHS [facility] Last Admin: 04/25/21 21:40 Dose: 25 units Insulin Human Lispro (Insulin Lispro 100 Unit/Ml) 0 unit SUB-Q ACHS [facility]; Protocol Last Admin: 04/25/21 21:44 Dose: 6 unit Melatonin (Melatonin 5 Mg Tab) 5 mg PO QHS PRN PRN Reason: Sleep Last Admin: 04/25/21 21:24 Dose: 5 mg Morphine Sulfate (Morphine 4 Mg/1 Ml Inj) 4 mg IV Q4H PRN PRN Reason: Pain , Severe (7-10) Naloxone HCl (Naloxone 0.4 Mg/1 Ml Inj) 0.1 mg IV Q2MIN PRN PRN Reason: Res Rate </= 8 or 02 SAT < 92% Ondansetron HCl (Ondansetron 4 Mg/2 Ml Inj) 4 mg IV Q8H PRN PRN Reason: Nausea And Vomiting Oxycodone/Acetaminophen (Oxycodone /Acetaminophen 5-325mg Tab) 1 tab PO Q6H PRN PRN Reason: Pain, Moderate (4-6) Last Admin: 04/25/21 21:24 Dose: 1 tab Sodium Chloride (Sodium Chloride 0.9% 10 Ml Flush Syringe) 10 ml IV BID [facility] Last Admin: 04/25/21 21:42 Dose: 10 ml Sodium Chloride (Sodium Chloride 0.9% 10 Ml Flush Syringe) 10 ml IV PRN PRN PRN Reason: LINE FLUSH Review of Systems All systems: negative Physical Examination Vital signs: Vital Signs Temp Pulse Resp BP Pulse Ox 98.0 F 90 20 142/78 93 04/16/21 03:05 04/16/21 03:05 04/16/21 03:05 04/16/21 03:05 04/16/21 03:05 General appearance: no acute distress, appears uncomfortable, other (morbidly obese) Eyes: non-icteric ENT: other Neck: other (large in circumference, >17 inches) Ascultation: Bilateral: diminished breath sounds Percussion: Bilateral: not dull Tactile fremitus: Bilateral: normal Cardiovascular: regular rate and rhythm Gastrointestinal: normoactive bowel sounds Extremities: other (edema is present) normal mental status, other (DOES HAVE SOME FORM OF TARDIVE DYSKINESIA) Results - Laboratory Findings CBC and BMP: 04/17/21 03:20 04/21/21 08:38 PT/INR, D-dimer D-Dimer 931.74 ng/mlDDU (0-234) H 04/25/21 14:47 Abnormal lab findings: Abnormal Labs 04/16/21 04/16/21 04/16/21 06:47 06:47 06:47 WBC 4.1 L Hgb 11.6 L MCV 80 L MCH 25 L MCHC RDW 16.3 H [place] % (Auto) Lymph # (Auto) D-Dimer 295.17 H Sodium 133 L Chloride 93.5 L Creatinine 0.6 L Glucose 197 H POC Glucose AST 48 H Lactate Dehydrogenase C-Reactive Protein 6.00 H Albumin 3.8 L Coronavirus (PCR) 04/16/21 04/16/21 04/17/21 19:42 22:34 03:20 WBC 4.1 L Hgb 11.2 L MCV 81 L MCH 25 L MCHC 31 L RDW 16.1 H [place] % (Auto) 10.9 H Lymph # (Auto) 0.9 L D-Dimer Sodium Chloride Creatinine Glucose 291 H POC Glucose 252 H AST Lactate Dehydrogenase C-Reactive Protein Albumin Coronavirus (PCR) 04/17/21 04/17/21 04/17/21 03:20 08:45 23:07 WBC Hgb MCV MCH MCHC RDW [place] % (Auto) Lymph # (Auto) D-Dimer Sodium 132 L Chloride 93.4 L Creatinine 0.7 L Glucose 235 H 216 H POC Glucose 261 H AST Lactate Dehydrogenase C-Reactive Protein Albumin Coronavirus (PCR) 04/18/21 04/18/21 04/18/21 05:08 08:10 10:00 WBC Hgb MCV MCH MCHC RDW [place] % (Auto) Lymph # (Auto) D-Dimer Sodium 130 L Chloride 93.5 L Creatinine 0.6 L Glucose 242 H POC Glucose 245 H AST Lactate Dehydrogenase C-Reactive Protein Albumin Coronavirus (PCR) Positive A 04/18/21 04/18/21 04/18/21 11:46 16:31 21:15 WBC Hgb MCV MCH MCHC RDW [place] % (Auto) Lymph # (Auto) D-Dimer Sodium Chloride Creatinine Glucose POC Glucose 266 H 245 H 288 H AST Lactate Dehydrogenase C-Reactive Protein Albumin Coronavirus (PCR) 04/19/21 04/19/21 04/19/21 07:36 10:14 10:14 WBC Hgb MCV MCH MCHC RDW [place] % (Auto) Lymph # (Auto) D-Dimer Sodium 135 L Chloride 96.0 L Creatinine 0.6 L Glucose 271 H 272 H POC Glucose 364 H AST 48 H Lactate Dehydrogenase C-Reactive Protein Albumin 3.5 L Coronavirus (PCR) 04/19/21 04/19/21 04/19/21 10:14 10:14 11:52 WBC Hgb MCV MCH MCHC RDW [place] % (Auto) Lymph # (Auto) D-Dimer 298.94 H Sodium Chloride Creatinine Glucose POC Glucose 273 H AST Lactate Dehydrogenase 370 H C-Reactive Protein 9.90 H Albumin Coronavirus (PCR) 04/19/21 04/19/21 04/20/21 16:11 21:05 07:33 WBC Hgb MCV MCH MCHC RDW [place] % (Auto) Lymph # (Auto) D-Dimer Sodium Chloride Creatinine Glucose POC Glucose 302 H 283 H 235 H AST Lactate Dehydrogenase C-Reactive Protein Albumin Coronavirus (PCR) 04/20/21 04/20/21 04/20/21 07:48 10:39 16:11 WBC Hgb MCV MCH MCHC RDW [place] % (Auto) Lymph # (Auto) D-Dimer Sodium 136 L Chloride 96.2 L Creatinine 0.6 L Glucose 297 H POC Glucose 289 H 320 H AST Lactate Dehydrogenase C-Reactive Protein Albumin 3.6 L Coronavirus (PCR) 0104/21/21 04/21/21 22:12 07:25 08:38 WBC Hgb MCV MCH MCHC RDW [place] % (Auto) Lymph # (Auto) D-Dimer Sodium 136 L Chloride 96.1 L Creatinine 0.6 L Glucose 218 H POC Glucose 274 H 211 H AST 45 H Lactate Dehydrogenase C-Reactive Protein Albumin 3.5 L Coronavirus (PCR) 04/21/21 04/21/21 04/21/21 11:41 16:30 22:22 WBC Hgb MCV MCH MCHC RDW [place] % (Auto) Lymph # (Auto) D-Dimer Sodium Chloride Creatinine Glucose POC Glucose 248 H 299 H 285 H AST Lactate Dehydrogenase C-Reactive Protein Albumin Coronavirus (PCR) 04/22/21 04/22/21 04/22/21 07:42 12:33 16:29 WBC Hgb MCV MCH MCHC RDW [place] % (Auto) Lymph # (Auto) D-Dimer Sodium Chloride Creatinine Glucose POC Glucose 174 H 219 H 329 H AST Lactate Dehydrogenase C-Reactive Protein Albumin Coronavirus (PCR) 04/22/21 04/23/21 04/23/21 20:54 07:24 11:58 WBC Hgb MCV MCH MCHC RDW [place] % (Auto) Lymph # (Auto) D-Dimer Sodium Chloride Creatinine Glucose POC Glucose 316 H 184 H 223 H AST Lactate Dehydrogenase C-Reactive Protein Albumin Coronavirus (PCR) 04/23/21 04/23/21 04/23/21 12:57 16:30 22:16 WBC Hgb MCV MCH MCHC RDW [place] % (Auto) Lymph # (Auto) D-Dimer Sodium Chloride Creatinine Glucose POC Glucose 254 H 354 H 288 H AST Lactate Dehydrogenase C-Reactive Protein Albumin Coronavirus (PCR) 04/24/21 04/24/21 04/24/21 07:53 11:40 16:47 WBC Hgb MCV MCH MCHC RDW [place] % (Auto) Lymph # (Auto) D-Dimer Sodium Chloride Creatinine Glucose POC Glucose 184 H 273 H 304 H AST Lactate Dehydrogenase C-Reactive Protein Albumin Coronavirus (PCR) 04/24/21 04/25/21 04/25/21 22:39 07:20 10:58 WBC Hgb MCV MCH MCHC RDW [place] % (Auto) Lymph # (Auto) D-Dimer Sodium Chloride Creatinine Glucose POC Glucose 252 H 194 H 251 H AST Lactate Dehydrogenase C-Reactive Protein Albumin Coronavirus (PCR) 04/25/21 04/25/21 04/25/21 14:47 14:47 17:33 WBC Hgb MCV MCH MCHC RDW [place] % (Auto) Lymph # (Auto) D-Dimer 931.74 H Sodium Chloride Creatinine Glucose POC Glucose 316 H AST Lactate Dehydrogenase 413 H C-Reactive Protein 2.70 H Albumin Coronavirus (PCR) 04/25/21 21:39 WBC Hgb MCV MCH MCHC RDW [place] % (Auto) Lymph # (Auto) D-Dimer Sodium Chloride Creatinine Glucose POC Glucose 304 H AST Lactate Dehydrogenase C-Reactive Protein Albumin Coronavirus (PCR) - Diagnostic Findings Chest x-ray: image reviewed (BILATERAL INFILTRATES) Assessment and Plan 56 y/o obese male with acute respiratory failure secondary to COVID 19 1. Will give a trial of IV lasix, ordered for tomorrow 2. Encourage patient to prone as much as tolerated during the day and sleep prone at night 3. Given smoking history, may have some COPD. Decadron has fallen off JUN. Will start solumedrol 4. Continue albuterol. No long acting puffers available in house. Guarded prognosis.
[2021-04-26] MEDS: guaiFENesin 100 MG/5 ML ORAL LIQD PO PRN ×4 (02:57→22:00)
[2021-04-26] MEDS: methylPREDNISolone Sod Succinate 125 MG/2 ML INJ IV SCH ×4 (02:57→17:01)
[2021-04-26] MEDS: oxyCODONE /ACETAMINOPHEN 5-325MG TAB PO PRN ×3 (05:27→22:00)
[2021-04-26] MEDS: ALBUTEROL 8.5 GM MDI INHALATION IH SCH ×3 (07:57→20:51)
[2021-04-26] MEDS: GABAPENTIN 300 MG CAP PO SCH ×3 (09:04→22:04)
[2021-04-26] MEDS: glipiZIDE 10 MG TAB PO SCH ×2 (09:04→17:02)
[2021-04-26] MEDS: ASPIRIN 81 MG TAB CHEW PO SCH (09:04)
[2021-04-26] MEDS: CETIRIZINE 10 MG TAB PO SCH (09:04)
[2021-04-26] MEDS: INSULIN LISPRO 100 UNIT/ML SUB-Q SCH ×6 (09:05→22:17)
[2021-04-26] MEDS: carvediloL 12.5 MG TAB PO SCH ×2 (09:06→21:59)
[2021-04-26] MEDS: FUROSEMIDE 40 MG/4 ML INJ IV SCH (09:08)
--- NOTE | 2021-04-26 10:52 | Progress Note ---
Subjective Date of service: 04/26/21 Interval history: No acute events. Down to 6 liters now. Objective Vital Signs - 12hr 04/25/21 04/26/21 04/26/21 23:00 04:40 07:57 Temperature 97.9 F Pulse Rate 66 Pulse Rate [ 67 Bilateral Throughout] Respiratory 18 16 Rate Respiratory 20 Rate [Bilateral Throughout] Blood Pressure 108/69 O2 Sat by Pulse 92 99 Oximetry 04/26/21 04/26/21 04/26/21 08:10 09:03 09:06 Temperature Pulse Rate 77 77 Pulse Rate [ Bilateral Throughout] Respiratory Rate Respiratory Rate [Bilateral Throughout] Blood Pressure 120/66 120/66 O2 Sat by Pulse 92 93 Oximetry Constitutional: no acute distress, appears uncomfortable, other (morbidly obese) Eyes: non-icteric ENT: other Neck: other (large in circumference, >17 inches) Ascultation: Bilateral: diminished breath sounds Percussion: Bilateral: not dull Tactile fremitus: Bilateral: normal Cardiovascular: regular rate and rhythm Gastrointestinal: normoactive bowel sounds Extremities: other (edema is present) Neurologic: normal mental status, other (DOES HAVE SOME FORM OF TARDIVE DYSKINESIA) CBC and BMP: 04/17/21 03:20 04/21/21 08:38 ABG, PT/INR, D-dimer: PT/INR, D-dimer D-Dimer 931.74 ng/mlDDU (0-234) H 04/25/21 14:47 Abnormal lab findings: Abnormal Labs 04/16/21 04/16/21 04/16/21 06:47 06:47 06:47 WBC 4.1 L Hgb 11.6 L MCV 80 L MCH 25 L MCHC RDW 16.3 H [place] % (Auto) Lymph # (Auto) D-Dimer 295.17 H Sodium 133 L Chloride 93.5 L Creatinine 0.6 L Glucose 197 H POC Glucose AST 48 H Lactate Dehydrogenase C-Reactive Protein 6.00 H Albumin 3.8 L Coronavirus (PCR) 04/16/21 04/16/21 04/17/21 19:42 22:34 03:20 WBC 4.1 L Hgb 11.2 L MCV 81 L MCH 25 L MCHC 31 L RDW 16.1 H [place] % (Auto) 10.9 H Lymph # (Auto) 0.9 L D-Dimer Sodium Chloride Creatinine Glucose 291 H POC Glucose 252 H AST Lactate Dehydrogenase C-Reactive Protein Albumin Coronavirus (PCR) 04/17/21 04/17/21 04/17/21 03:20 08:45 23:07 WBC Hgb MCV MCH MCHC RDW [place] % (Auto) Lymph # (Auto) D-Dimer Sodium 132 L Chloride 93.4 L Creatinine 0.7 L Glucose 235 H 216 H POC Glucose 261 H AST Lactate Dehydrogenase C-Reactive Protein Albumin Coronavirus (PCR) 04/18/21 04/18/21 04/18/21 05:08 08:10 10:00 WBC Hgb MCV MCH MCHC RDW [place] % (Auto) Lymph # (Auto) D-Dimer Sodium 130 L Chloride 93.5 L Creatinine 0.6 L Glucose 242 H POC Glucose 245 H AST Lactate Dehydrogenase C-Reactive Protein Albumin Coronavirus (PCR) Positive A 04/18/21 04/18/21 04/18/21 11:46 16:31 21:15 WBC Hgb MCV MCH MCHC RDW [place] % (Auto) Lymph # (Auto) D-Dimer Sodium Chloride Creatinine Glucose POC Glucose 266 H 245 H 288 H AST Lactate Dehydrogenase C-Reactive Protein Albumin Coronavirus (PCR) 04/19/21 04/19/21 04/19/21 07:36 10:14 10:14 WBC Hgb MCV MCH MCHC RDW [place] % (Auto) Lymph # (Auto) D-Dimer Sodium 135 L Chloride 96.0 L Creatinine 0.6 L Glucose 271 H 272 H POC Glucose 364 H AST 48 H Lactate Dehydrogenase C-Reactive Protein Albumin 3.5 L Coronavirus (PCR) 04/19/21 04/19/21 04/19/21 10:14 10:14 11:52 WBC Hgb MCV MCH MCHC RDW [place] % (Auto) Lymph # (Auto) D-Dimer 298.94 H Sodium Chloride Creatinine Glucose POC Glucose 273 H AST Lactate Dehydrogenase 370 H C-Reactive Protein 9.90 H Albumin Coronavirus (PCR) 04/19/21 04/19/21 04/20/21 16:11 21:05 07:33 WBC Hgb MCV MCH MCHC RDW [place] % (Auto) Lymph # (Auto) D-Dimer Sodium Chloride Creatinine Glucose POC Glucose 302 H 283 H 235 H AST Lactate Dehydrogenase C-Reactive Protein Albumin Coronavirus (PCR) 01/01/3004/20/21 04/20/21 07:48 10:39 16:11 WBC Hgb MCV MCH MCHC RDW [place] % (Auto) Lymph # (Auto) D-Dimer Sodium 136 L Chloride 96.2 L Creatinine 0.6 L Glucose 297 H POC Glucose 289 H 320 H AST Lactate Dehydrogenase C-Reactive Protein Albumin 3.6 L Coronavirus (PCR) 04/20/21 04/21/21 04/21/21 22:12 07:25 08:38 WBC Hgb MCV MCH MCHC RDW [place] % (Auto) Lymph # (Auto) D-Dimer Sodium 136 L Chloride 96.1 L Creatinine 0.6 L Glucose 218 H POC Glucose 274 H 211 H AST 45 H Lactate Dehydrogenase C-Reactive Protein Albumin 3.5 L Coronavirus (PCR) 04/21/21 04/21/21 04/21/21 11:41 16:30 22:22 WBC Hgb MCV MCH MCHC RDW [place] % (Auto) Lymph # (Auto) D-Dimer Sodium Chloride Creatinine Glucose POC Glucose 248 H 299 H 285 H AST Lactate Dehydrogenase C-Reactive Protein Albumin Coronavirus (PCR) 04/22/21 04/22/21 04/22/21 07:42 12:33 16:29 WBC Hgb MCV MCH MCHC RDW [place] % (Auto) Lymph # (Auto) D-Dimer Sodium Chloride Creatinine Glucose POC Glucose 174 H 219 H 329 H AST Lactate Dehydrogenase C-Reactive Protein Albumin Coronavirus (PCR) 04/22/21 04/23/21 04/23/21 20:54 07:24 11:58 WBC Hgb MCV MCH MCHC RDW [place] % (Auto) Lymph # (Auto) D-Dimer Sodium Chloride Creatinine Glucose POC Glucose 316 H 184 H 223 H AST Lactate Dehydrogenase C-Reactive Protein Albumin Coronavirus (PCR) 04/23/21 04/23/21 04/23/21 12:57 16:30 22:16 WBC Hgb MCV MCH MCHC RDW [place] % (Auto) Lymph # (Auto) D-Dimer Sodium Chloride Creatinine Glucose POC Glucose 254 H 354 H 288 H AST Lactate Dehydrogenase C-Reactive Protein Albumin Coronavirus (PCR) 04/24/21 04/24/21 04/24/21 07:53 11:40 16:47 WBC Hgb MCV MCH MCHC RDW [place] % (Auto) Lymph # (Auto) D-Dimer Sodium Chloride Creatinine Glucose POC Glucose 184 H 273 H 304 H AST Lactate Dehydrogenase C-Reactive Protein Albumin Coronavirus (PCR) 04/24/21 04/25/21 04/25/21 22:39 07:20 10:58 WBC Hgb MCV MCH MCHC RDW [place] % (Auto) Lymph # (Auto) D-Dimer Sodium Chloride Creatinine Glucose POC Glucose 252 H 194 H 251 H AST Lactate Dehydrogenase C-Reactive Protein Albumin Coronavirus (PCR) 04/25/21 04/25/21 04/25/21 14:47 14:47 17:33 WBC Hgb MCV MCH MCHC RDW [place] % (Auto) Lymph # (Auto) D-Dimer 931.74 H Sodium Chloride Creatinine Glucose POC Glucose 316 H AST Lactate Dehydrogenase 413 H C-Reactive Protein 2.70 H Albumin Coronavirus (PCR) 04/25/21 04/26/21 21:39 07:09 WBC Hgb MCV MCH MCHC RDW [place] % (Auto) Lymph # (Auto) D-Dimer Sodium Chloride Creatinine Glucose POC Glucose 304 H 294 H AST Lactate Dehydrogenase C-Reactive Protein Albumin Coronavirus (PCR)
[2021-04-26] MEDS: ENOXAPARIN 40 MG/0.4 ML INJ SUB-Q SCH (22:00)
[2021-04-26] MEDS: MELATONIN 5 MG TAB PO PRN (22:00)
[2021-04-26] MEDS: INSULIN GLARGINE 100 UNITS/ML SUB-Q SCH (22:01)
[2021-04-27] MEDS: methylPREDNISolone Sod Succinate 125 MG/2 ML INJ IV SCH ×5 (00:21→23:25)
[2021-04-27] MEDS: oxyCODONE /ACETAMINOPHEN 5-325MG TAB PO PRN ×3 (04:34→22:00)
--- NOTE | 2021-04-27 07:49 | Progress Note ---
Assessment and Plan Assessment and plan: Patient is on 6 L of nasal cannula oxygen last night saturating 93% -Persistent hypoxia; Morbid obesity/COVID-19/multifocal pneumonia Currently on 6 L of nasal cannula last night, Wean as tolerated Home O2 evaluation and home O2 oxygen set up if needed No resources to consider LTAC Titrate O2 sats to more than 90% Consider BiPAP if needed --Acute hypoxic respiratory failure Patient is on 6 L nasal cannula oxygen as of last night Wean as tolerated, home O2 evaluation prior to discharge Prone positioning --Multifocal pneumonia; Continue empiric antibiotics Check procalcitonin, if normal DC antibiotics Follow cultures --COVID-19 infection 04/18/2021 -currently on 6 L NC, home O2 eval prior to discharge -CXR shows bilateral infiltrates, procalcitonin low no antibiotics --History of COPD; Continue current management --Type 2 diabetes mellitus; uncontrolled Probably secondary to high-dose steroids Accu-Chek sliding scale coverage Long-acting insulin, monitor blood sugars and adjust the dose Diabetic diet and diabetic education prior to discharge --Hypertension/well controlled -continue current antihypertensives --Hyperlipidemia/low-cholesterol diet -atorvastatin --Obesity/BMI 50.2 Advised dietary modification exercise as tolerated and weight reduction when me dically stable -discussed lifestyle modifications (diet, exercise) and the effects of weight loss on overall health. Advised bariatric surgery consultation for weight reduction program as outpatient --Possible obstructive sleep apnea; Advised outpatient pulmonary for sleep study to rule out KENDRICK To set up CPAP BiPAP at night and as needed during the day --DVT prophylaxis Subcu Lovenox Titrate oxygen to more than 90% Home O2 evaluation Possible discharge in 1 to 2 days if stable Plan of care reviewed with the patient and his nurse Discharge planning discussed during multidisciplinary rounds Brief history and daily Hospital course; 56-year-old morbidly obese male patient with significant past medical history of hypertension type 2 diabetes mellitus dyslipidemia history of bronchial asthma/COPD was admitted through emergency room with worsening shortness of breath noted to be in acute respiratory failure requiring supplemental oxygen, [place] PCR test was positive ID and pulmonary have evaluated the patient patient is on steroids completed remdesivir did not need antibiotics as patient's procalcitonin was low, Patient is persistently hypoxic requiring high dose of nasal cannula oxygen via Ventimask, being titrated to 6 L as of last night. Patient refused CTA chest to rule out PE due to elevated D-dimers and persistent hypoxia and high risk for PE and DVT. Disposition Plan: continue medical management We will try to wean nasal cannula oxygen from 6L to 3 to 4 L Set up home oxygen prior to discharge 04/21/2021; Ventimask 15 L/50%/93 o2 sat/morbid obesity Guarded prognosis 04/22/2021; remains on Ventimask 15 L/50%/96 O2 sat Critically ill with poor prognosis. Wean as tolerated 04/23/2021; patient continues to be on 15 L oxygen Ventimask 50% FiO2 Wean as tolerated, titrate O2 sats to more than 90% Considering LTAC, patient has no resources 04/24/2021; Home O2 evaluation Patient continues to require 15 L on Ventimask Morbidly obese, patient refused high flow NC oxygen 04/25/2021; patient continues to require 15 L of oxygen on Ventimask Resting room air done yesterday was 83% Discussed the case with capper machine operator Dr. Denise and requested a consult Recommend LTAC consult, no payer source Added some antihistamines Zyrtec and some Lasix, closely monitor 04/26/2021; patient remains on 15 L O2/Ventimask/50 FiO2/96 O2 sats 04/27/2021; DC planning, home O2 evaluation, discharge in 1 to 2 days if stable Worsening D-dimers, patient remain hypoxic, morbidly obese, COVID-19, high risk for high blood coagulable state Patient refused CTA chest/V/Q scan, will start empiric therapeutic dose anticoagulation Lovenox 1 mg/kg body weight every 12 hours History Interval history: Seen and examined the patient at the bedside Patient's chart and medications reviewed Patient remains hypoxemic, in mild distress On 6 L of nasal cannula oxygen Vital signs reviewed Hospitalist Physical - Constitutional Vitals: Temp Pulse Resp BP Pulse Ox 97.5 F L 60 16 112/64 96 04/27/21 05:13 04/27/21 05:13 04/27/21 05:13 04/27/21 05:13 04/27/21 05:13 General appearance: Present: mild distress, well-nourished, obese (Morbidly obese) - EENT Eyes: Present: PERRL, EOM intact - Neck Neck: Present: supple, normal ROM - Respiratory Respiratory effort: normal Respiratory: bilateral: diminished, rales, rhonchi, negative: wheezing - Cardiovascular Rhythm: regular Heart Sounds: Present: S1 & S2 - Extremities Extremities: no ischemia, No edema - Abdominal General gastrointestinal: soft, non-tender, non-distended, normal bowel sounds - Integumentary Integumentary: Present: clear, warm - Psychiatric Psychiatric: appropriate mood/affect, cooperative - Neurologic Neurologic: CNII-XII intact, moves all extremities HEART Score - HEART Score Troponin: Troponin T < 0.010 ng/mL (0.00-0.029) 04/16/21 06:47 Results - Labs CBC & Chem 7: 04/17/21 03:20 04/28/21 09:19 Labs: Laboratory Last Values WBC 4.1 K/mm3 (4.5-11.0) L 04/17/21 03:20 RBC 4.46 M/mm3 (3.65-5.03) 04/17/21 03:20 Hgb 11.2 gm/dl (11.8-15.2) L 04/17/21 03:20 Hct 36.0 % (35.5-45.6) 04/17/21 03:20 MCV 81 fl (84-94) L 04/17/21 03:20 MCH 25 pg (28-32) L 04/17/21 03:20 MCHC 31 % (32-34) L 04/17/21 03:20 RDW 16.1 % (13.2-15.2) H 04/17/21 03:20 Plt Count 190 K/mm3 (140-440) 04/17/21 03:20 Lymph % (Auto) 22.2 % (13.4-35.0) 04/17/21 03:20 [place] % (Auto) 10.9 % (0.0-7.3) H 04/17/21 03:20 Eos % (Auto) 0.0 % (0.0-4.3) 04/17/21 03:20 Baso % (Auto) 0.2 % (0.0-1.8) 04/17/21 03:20 Lymph # (Auto) 0.9 K/mm3 (1.2-5.4) L 04/17/21 03:20 [place] # (Auto) 0.5 K/mm3 (0.0-0.8) 04/17/21 03:20 Eos # (Auto) 0.0 K/mm3 (0.0-0.4) 04/17/21 03:20 Baso # (Auto) 0.0 K/mm3 (0.0-0.1) 04/17/21 03:20 Seg Neutrophils % 66.7 % (40.0-70.0) 04/17/21 03:20 Seg Neutrophils # 2.8 K/mm3 (1.8-7.7) 04/17/21 03:20 D-Dimer 931.74 ng/mlDDU (0-234) H 04/25/21 14:47 Sodium 136 mmol/L (137-145) L 04/21/21 08:38 Potassium 3.6 mmol/L (3.6-5.0) 04/21/21 08:38 Chloride 96.1 mmol/L (98-107) L 04/21/21 08:38 Carbon Dioxide 24 mmol/L (22-30) 04/21/21 08:38 Anion Gap 20 mmol/L 04/21/21 08:38 BUN 14 mg/dL (9-20) 04/21/21 08:38 Creatinine 0.6 mg/dL (0.8-1.3) L 04/21/21 08:38 Estimated GFR > 60 ml/min 04/21/21 08:38 BUN/Creatinine Ratio 23 % 04/21/21 08:38 Glucose 218 mg/dL (75-100) H 04/21/21 08:38 POC Glucose 303 mg/dL (70-105) H 04/27/21 07:16 Calcium 8.5 mg/dL (8.4-10.2) 04/21/21 08:38 Ferritin 89.5 ng/mL (30.0-300.0) 04/25/21 14:47 Total Bilirubin 0.40 mg/dL (0.1-1.2) 04/21/21 08:38 AST 45 units/L (5-40) H 04/21/21 08:38 ALT 39 units/L (7-56) 04/21/21 08:38 Alkaline Phosphatase 54 units/L (35-129) 04/21/21 08:38 Lactate Dehydrogenase 413 units/L (91-180) H 04/25/21 14:47 Troponin T < 0.010 ng/mL (0.00-0.029) 04/16/21 06:47 C-Reactive Protein 2.70 mg/dL (0.00-1.30) H 04/25/21 14:47 Total Protein 6.7 g/dL (6.3-8.2) 04/21/21 08:38 Albumin 3.5 g/dL (3.9-5) L 04/21/21 08:38 Albumin/Globulin Ratio 1.1 % 04/21/21 08:38 Procalcitonin 0.17 ng/mL (<0.15) 04/16/21 06:47 Coronavirus (PCR) Positive (Negative) A 04/18/21 10:00 Smith/IV: Voiding Method Urinal Active Medications - Current Medications Current Medications: Generic Name Dose Route Start Last Admin Trade Name Freq PRN Reason Stop Dose Admin Acetaminophen 650 mg 04/16/21 09:16 Acetaminophen 325 Mg Tab PO Q4H PRN Pain MILD(1-3)/Fever >100.5/ADDISON Al Hydrox/Mg Hydrox/Simethicone 30 ml 04/24/21 19:09 04/24/21 20:23 Alum-Mag Hydroxide-Simethicone 169-384-16vd/5ml Oral Liqd 30 Ml PO 30 ml Q4H PRN Administration Indigestion Albuterol 2 puff 04/17/21 08:00 04/26/21 20:51 Albuterol 8.5 Gm Mdi Inhalation IH 2 puff TIDRT EDILBERTO Administration Albuterol 2.5 mg 04/17/21 18:00 Albuterol 2.5 Mg/3 Ml Nebu IH QID PRN Wheezing Aspirin 81 mg 04/18/21 10:00 04/26/21 09:04 Aspirin 81 Mg Tab Chew PO 81 mg QDAY EDILBERTO Administration Atorvastatin Calcium 20 mg 04/17/21 22:00 04/26/21 21:59 Atorvastatin 20 Mg Tab PO 20 mg QHS EDILBERTO Administration Carvedilol 12.5 mg 04/17/21 22:00 04/26/21 21:59 Carvedilol 12.5 Mg Tab PO 12.5 mg BID EDILBERTO Administration Cetirizine HCl 10 mg 04/26/21 10:00 04/26/21 09:04 Cetirizine 10 Mg Tab PO 10 mg QDAY EDILBERTO Administration Dextrose 50 ml 04/16/21 15:59 Dextrose 50% In Water (25gm) 50 Ml Syringe IV Q30MIN PRN Hypoglycemia Protocol Enoxaparin Sodium 40 mg 04/17/21 22:00 04/26/21 22:00 Enoxaparin 40 Mg/0.4 Ml Inj SUB-Q 40 mg QDAY@2200 EDILBERTO Administration Protocol Furosemide 40 mg 04/26/21 10:00 04/26/21 09:08 Furosemide 40 Mg/4 Ml Inj IV 40 mg QDAY EDILBERTO Administration Gabapentin 300 mg 04/17/21 20:00 04/26/21 22:04 Gabapentin 300 Mg Cap PO 300 mg TID EDILBERTO Administration Glipizide 10 mg 04/26/21 08:00 04/26/21 17:02 Glipizide 10 Mg Tab PO 10 mg BIDDIAB EDILBERTO Administration Guaifenesin 200 mg 04/17/21 18:53 04/26/21 22:00 Guaifenesin 100 Mg/5 Ml Oral Liqd PO 200 mg Q4H PRN Administration Cough Insulin Glargine 25 units 04/18/21 22:00 04/26/21 22:01 Insulin Glargine 100 Units/Ml SUB-Q 25 units QHS EDILBERTO Administration Insulin Human Lispro 0 unit 04/16/21 16:30 04/26/21 22:17 Insulin Lispro 100 Unit/Ml SUB-Q 8 unit ACHS EDILBERTO Administration Protocol Insulin Human Lispro 10 unit 04/26/21 11:30 04/26/21 17:03 Insulin Lispro 100 Unit/Ml SUB-Q 10 unit AC EDILBERTO Administration Melatonin 5 mg 04/17/21 01:09 04/26/21 22:00 Melatonin 5 Mg Tab PO 5 mg QHS PRN Administration Sleep Methylprednisolone Sodium Succinate 60 mg 04/26/21 00:00 04/27/21 06:15 Methylprednisolone Sod Succinate 125 Mg/2 Ml Inj IV 60 mg Q6HR EDILBERTO Administration Morphine Sulfate 4 mg 04/16/21 09:16 Morphine 4 Mg/1 Ml Inj IV Q4H PRN Pain , Severe (7-10) Naloxone HCl 0.1 mg 04/16/21 09:16 Naloxone 0.4 Mg/1 Ml Inj IV Q2MIN PRN Res Rate </= 8 or 02 SAT < 92% Ondansetron HCl 4 mg 04/16/21 09:16 Ondansetron 4 Mg/2 Ml Inj IV Q8H PRN Nausea And Vomiting Oxycodone/Acetaminophen 1 tab 04/16/21 09:16 04/27/21 04:34 Oxycodone /Acetaminophen 5-325mg Tab PO 1 tab Q6H PRN Administration Pain, Moderate (4-6) Sodium Chloride 10 ml 04/16/21 10:00 04/26/21 22:02 Sodium Chloride 0.9% 10 Ml Flush Syringe IV 10 ml BID EDILBERTO Administration Sodium Chloride 10 ml 04/16/21 09:16 Sodium Chloride 0.9% 10 Ml Flush Syringe IV PRN PRN LINE FLUSH Nutrition/Malnutrition Assess - Dietary Evaluation Nutrition/Malnutrition Findings: Nutrition Notes Start: 04/18/21 10:40 Freq: Status: Active Protocol: Document 04/22/21 15:07 PHILLIP (Rec: 04/22/21 15:17 PHILLIP [id number]) Nutrition Notes Initial or Follow up Brief Note Current Diet Consistent Carbohydrates Diet (since L 04/16), D Suppl ( since L 04/18). Height 6 ft Weight 167.9 kg [place] Body Weight (kg) 80.90 BMI 50.2 Weight change and time frame 0.071 Kg body weight change in 4 days reported. Weight Status Morbidly Obese Subjective/Other Information RD consult for routine F/U on Dietary assessment. Pt's PO intake of meals has improved, now is Good (75-100% ), according to ADL notes. Percent of energy/protein needs met: Prescribed Consistent Carbohydrates Diet provides for energy/protein needs (2, 061 Kcal/91 g) during LOS; additionally, Dietary Supplements will compensate for possible Poor PO intake of meals with 440 Kcal and 20 g of protein. Current % PO Good (75-100%) Minimum of two criteria No #1 Nutrition Diagnosis Inadequate oral intake Diagnosis Progress(for reassessment Resolved documentation) Nutrition Intervention Change Diet Order: Continue Consistent Carbohydrates Diet. Add Supplement/Snack (indicate name/kcal Continue 8 fl oz Glucerna; BID /protein ) . Provides kCal: 440 Provides Protein (gm) 20 Goal #1 Compensate, through dietary supplementation, for possible poor or insufficient PO intake of meals during LOS. Goal #2 Maintain body weight within +/ -3% of admission body weight during LOS. Revisit per MD consult or patient Sign Off request: Additional Comments Continue monitoring food tolerance, %PO intake of meals , and BM.
[2021-04-27] MEDS: GABAPENTIN 300 MG CAP PO SCH ×3 (10:16→22:00)
[2021-04-27] MEDS: FUROSEMIDE 40 MG/4 ML INJ IV SCH (10:17)
[2021-04-27] MEDS: CETIRIZINE 10 MG TAB PO SCH (10:17)
[2021-04-27] MEDS: glipiZIDE 10 MG TAB PO SCH ×2 (10:17→17:45)
[2021-04-27] MEDS: carvediloL 12.5 MG TAB PO SCH ×2 (10:17→22:00)
[2021-04-27] MEDS: ASPIRIN 81 MG TAB CHEW PO SCH (10:17)
[2021-04-27] MEDS: INSULIN LISPRO 100 UNIT/ML SUB-Q SCH ×7 (10:18→23:24)
[2021-04-27] MEDS: ALBUTEROL 8.5 GM MDI INHALATION IH SCH ×3 (10:51→21:00)
[2021-04-27 11:12] LABS: C-Reactive Protein 0.9 mg/dL (0.00-1.30)
--- NOTE | 2021-04-27 12:09 | Progress Note ---
Assessment and Plan 56 y/o obese male with acute respiratory failure secondary to COVID 19 04/27/21: Continue lasix therapy. Weight loss. Continue solumedrol, will start to taper tomorrow. Prone if possible. 1. Will give a trial of IV lasix, ordered for tomorrow 2. Encourage patient to prone as much as tolerated during the day and sleep prone at night 3. Given smoking history, may have some COPD. Decadron has fallen off JUN. Will start solumedrol 4. Continue albuterol. No long acting puffers available in house. Guarded prognosis. Subjective Date of service: 04/27/21 Interval history: still on 6 liters with marginal sats. IMS ordered CTA but patient refusing no IV Objective Vital Signs - 12hr 04/27/21 04/27/21 04/27/21 05:13 08:00 10:00 Temperature 97.5 F L Pulse Rate 60 Pulse Rate [ 76 Bilateral Throughout] Respiratory 16 Rate Respiratory 24 Rate [Bilateral Throughout] Blood Pressure 112/64 O2 Sat by Pulse 96 93 Oximetry 04/27/21 10:17 Temperature Pulse Rate 90 Pulse Rate [ Bilateral Throughout] Respiratory Rate Respiratory Rate [Bilateral Throughout] Blood Pressure O2 Sat by Pulse Oximetry Constitutional: no acute distress, appears uncomfortable, other (morbidly obese) Eyes: non-icteric ENT: other Neck: other (large in circumference, >17 inches) Ascultation: Bilateral: diminished breath sounds Percussion: Bilateral: not dull Tactile fremitus: Bilateral: normal Cardiovascular: regular rate and rhythm Gastrointestinal: normoactive bowel sounds Extremities: other (edema is present) Neurologic: normal mental status, other (DOES HAVE SOME FORM OF TARDIVE DYSKINESIA) CBC and BMP: 04/17/21 03:20 04/21/21 08:38 ABG, PT/INR, D-dimer: PT/INR, D-dimer D-Dimer 1049.14 ng/mlDDU (0-234) H 04/27/21 10:37 Abnormal lab findings: Abnormal Labs 04/16/21 04/16/21 04/16/21 06:47 06:47 06:47 WBC 4.1 L Hgb 11.6 L MCV 80 L MCH 25 L MCHC RDW 16.3 H Coal % (Auto) Lymph # (Auto) D-Dimer 295.17 H Sodium 133 L Chloride 93.5 L Creatinine 0.6 L Glucose 197 H POC Glucose AST 48 H Lactate Dehydrogenase C-Reactive Protein 6.00 H Albumin 3.8 L Coronavirus (PCR) 04/16/21 04/16/21 04/17/21 19:42 22:34 03:20 WBC 4.1 L Hgb 11.2 L MCV 81 L MCH 25 L MCHC 31 L RDW 16.1 H [place] % (Auto) 10.9 H Lymph # (Auto) 0.9 L D-Dimer Sodium Chloride Creatinine Glucose 291 H POC Glucose 252 H AST Lactate Dehydrogenase C-Reactive Protein Albumin Coronavirus (PCR) 04/17/21 04/17/21 04/17/21 03:20 08:45 23:07 WBC Hgb MCV MCH MCHC RDW [place] % (Auto) Lymph # (Auto) D-Dimer Sodium 132 L Chloride 93.4 L Creatinine 0.7 L Glucose 235 H 216 H POC Glucose 261 H AST Lactate Dehydrogenase C-Reactive Protein Albumin Coronavirus (PCR) 04/18/21 04/18/21 04/18/21 05:08 08:10 10:00 WBC Hgb MCV MCH MCHC RDW [place] % (Auto) Lymph # (Auto) D-Dimer Sodium 130 L Chloride 93.5 L Creatinine 0.6 L Glucose 242 H POC Glucose 245 H AST Lactate Dehydrogenase C-Reactive Protein Albumin Coronavirus (PCR) Positive A 04/18/21 04/18/21 04/18/21 11:46 16:31 21:15 WBC Hgb MCV MCH MCHC RDW [place] % (Auto) Lymph # (Auto) D-Dimer Sodium Chloride Creatinine Glucose POC Glucose 266 H 245 H 288 H AST Lactate Dehydrogenase C-Reactive Protein Albumin Coronavirus (PCR) 04/19/21 04/19/21 04/19/21 07:36 10:14 10:14 WBC Hgb MCV MCH MCHC RDW [place] % (Auto) Lymph # (Auto) D-Dimer Sodium 135 L Chloride 96.0 L Creatinine 0.6 L Glucose 271 H 272 H POC Glucose 364 H AST 48 H Lactate Dehydrogenase C-Reactive Protein Albumin 3.5 L Coronavirus (PCR) 04/19/21 04/19/21 04/19/21 10:14 10:14 11:52 WBC Hgb MCV MCH MCHC RDW [place] % (Auto) Lymph # (Auto) D-Dimer 298.94 H Sodium Chloride Creatinine Glucose POC Glucose 273 H AST Lactate Dehydrogenase 370 H C-Reactive Protein 9.90 H Albumin Coronavirus (PCR) 04/19/21 04/19/21 04/20/21 16:11 21:05 07:33 WBC Hgb MCV MCH MCHC RDW [place] % (Auto) Lymph # (Auto) D-Dimer Sodium Chloride Creatinine Glucose POC Glucose 302 H 283 H 235 H AST Lactate Dehydrogenase C-Reactive Protein Albumin Coronavirus (PCR) 04/20/21 04/20/21 04/20/21 07:48 10:39 16:11 WBC Hgb MCV MCH MCHC RDW [place] % (Auto) Lymph # (Auto) D-Dimer Sodium 136 L Chloride 96.2 L Creatinine 0.6 L Glucose 297 H POC Glucose 289 H 320 H AST Lactate Dehydrogenase C-Reactive Protein Albumin 3.6 L Coronavirus (PCR) 04/20/21 04/21/21 04/21/21 22:12 07:25 08:38 WBC Hgb MCV MCH MCHC RDW [place] % (Auto) Lymph # (Auto) D-Dimer Sodium 136 L Chloride 96.1 L Creatinine 0.6 L Glucose 218 H POC Glucose 274 H 211 H AST 45 H Lactate Dehydrogenase C-Reactive Protein Albumin 3.5 L Coronavirus (PCR) 04/21/21 04/21/21 04/21/21 11:41 16:30 22:22 WBC Hgb MCV MCH MCHC RDW [place] % (Auto) Lymph # (Auto) D-Dimer Sodium Chloride Creatinine Glucose POC Glucose 248 H 299 H 285 H AST Lactate Dehydrogenase C-Reactive Protein Albumin Coronavirus (PCR) 04/22/21 04/22/21 04/22/21 07:42 12:33 16:29 WBC Hgb MCV MCH MCHC RDW [place] % (Auto) Lymph # (Auto) D-Dimer Sodium Chloride Creatinine Glucose POC Glucose 174 H 219 H 329 H AST Lactate Dehydrogenase C-Reactive Protein Albumin Coronavirus (PCR) 04/22/21 04/23/21 04/23/21 20:54 07:24 11:58 WBC Hgb MCV MCH MCHC RDW [place] % (Auto) Lymph # (Auto) D-Dimer Sodium Chloride Creatinine Glucose POC Glucose 316 H 184 H 223 H AST Lactate Dehydrogenase C-Reactive Protein Albumin Coronavirus (PCR) 04/23/21 04/23/2104/23/22 12:57 16:30 22:16 WBC Hgb MCV MCH MCHC RDW [place] % (Auto) Lymph # (Auto) D-Dimer Sodium Chloride Creatinine Glucose POC Glucose 254 H 354 H 288 H AST Lactate Dehydrogenase C-Reactive Protein Albumin Coronavirus (PCR) 04/24/21 04/24/21 04/24/21 07:53 11:40 16:47 WBC Hgb MCV MCH MCHC RDW [place] % (Auto) Lymph # (Auto) D-Dimer Sodium Chloride Creatinine Glucose POC Glucose 184 H 273 H 304 H AST Lactate Dehydrogenase C-Reactive Protein Albumin Coronavirus (PCR) 04/24/21 04/25/21 04/25/21 22:39 07:20 10:58 WBC Hgb MCV MCH MCHC RDW [place] % (Auto) Lymph # (Auto) D-Dimer Sodium Chloride Creatinine Glucose POC Glucose 252 H 194 H 251 H AST Lactate Dehydrogenase C-Reactive Protein Albumin Coronavirus (PCR) 04/25/21 04/25/21 04/25/21 14:47 14:47 17:33 WBC Hgb MCV MCH MCHC RDW [place] % (Auto) Lymph # (Auto) D-Dimer 931.74 H Sodium Chloride Creatinine Glucose POC Glucose 316 H AST Lactate Dehydrogenase 413 H C-Reactive Protein 2.70 H Albumin Coronavirus (PCR) 04/25/21 04/26/21 04/26/21 21:39 07:09 11:24 WBC Hgb MCV MCH MCHC RDW [place] % (Auto) Lymph # (Auto) D-Dimer Sodium Chloride Creatinine Glucose POC Glucose 304 H 294 H 386 H AST Lactate Dehydrogenase C-Reactive Protein Albumin Coronavirus (PCR) 04/26/21 04/26/21 04/27/21 16:30 21:23 07:16 WBC Hgb MCV MCH MCHC RDW [place] % (Auto) Lymph # (Auto) D-Dimer Sodium Chloride Creatinine Glucose POC Glucose 371 H 358 H 303 H AST Lactate Dehydrogenase C-Reactive Protein Albumin Coronavirus (PCR) 04/27/21 04/27/21 04/27/21 10:37 10:37 11:06 WBC Hgb MCV MCH MCHC RDW [place] % (Auto) Lymph # (Auto) D-Dimer 1049.14 H Sodium Chloride Creatinine Glucose POC Glucose 470 H AST Lactate Dehydrogenase 271 H C-Reactive Protein Albumin Coronavirus (PCR)
--- NOTE | 2021-04-27 13:06 | Progress Note ---
Assessment and Plan Cultures: SARS CoV2 PCR: Positive A/P: 56/M with: #Bilateral pneumonia: Secondary to COVID-19 #Acute hypoxic respiratory failure: was on Ventimask. weaned to NC. #Diabetes mellitus type 2 #Hypertension #Morbid obesity Recs: -Continue IV/PO Dexamethasone x 10 days, considering morbid obesity, Decadron dose increased -completed Remdesivir -Does not meet hospital criteria for Actemra -prophylactic anticoagulation based on d-dimer per hospital protocol -Procalcitonin low, no antibiotics indicated Will sign off. Natasha Curry MD, FACP, [facility] ([facility] O: [phone] F: [phone] Subjective Date of service: 04/27/21 Interval history: No fever. Weaned to NC at 6 l/min. Objective - Exam Narrative Exam: Physical Exam (reviewed in chart to minimize risk of transmission) Constitutional: deferred Head, Ears, Nose: deferred Eyes: deferred Neck: deferred Oral: deferred Cardiovascular: deferred Respiratory: deferred GI: deferred Musculoskeletal: deferred Skin: deferred Hem/Lymphatic: deferred Psych: deferred Neurological: deferred - Constitutional Vitals: Vital Signs Temp Pulse Resp BP Pulse Ox 97.5 F L 90 24 112/64 95 04/27/21 05:13 04/27/21 10:17 04/27/21 08:00 04/27/21 05:13 04/27/21 12:16 Temperature -Last 24 Hours Temperature 97.5 F Temperature 99.5 F Temperature 98.0 F - Labs CBC & Chem 7: 04/17/21 03:20 04/21/21 08:38 Labs: Abnormal lab results 04/26/21 04/26/21 04/27/21 Range/Units 16:30 21:23 07:16 D-Dimer (0-234) ng/mlDDU POC Glucose 371 H 358 H 303 H (70-105) mg/dL Lactate Dehydrogenase (91-180) units/L 04/27/21 04/27/21 04/27/21 Range/Units 10:37 10:37 11:06 D-Dimer 1049.14 H (0-234) ng/mlDDU POC Glucose 470 H (70-105) mg/dL Lactate Dehydrogenase 271 H (91-180) units/L
[2021-04-27] MEDS: guaiFENesin 100 MG/5 ML ORAL LIQD PO PRN (21:59)
[2021-04-27] MEDS: ENOXAPARIN 100 MG/1 ML INJ SUB-Q SCH (21:59)
[2021-04-27] MEDS: MELATONIN 5 MG TAB PO PRN (22:00)
[2021-04-27] MEDS ORDERED: INSULIN GLARGINE 100 UNITS/ML SUB-Q SCH (22:00)
[2021-04-28] MEDS: oxyCODONE /ACETAMINOPHEN 5-325MG TAB PO PRN ×3 (05:03→19:58)
[2021-04-28] MEDS: guaiFENesin 100 MG/5 ML ORAL LIQD PO PRN ×3 (05:03→22:13)
[2021-04-28] MEDS: methylPREDNISolone Sod Succinate 125 MG/2 ML INJ IV SCH ×3 (05:04→22:15)
[2021-04-28] MEDS: GABAPENTIN 300 MG CAP PO SCH ×3 (08:32→19:58)
[2021-04-28] MEDS: INSULIN LISPRO 100 UNIT/ML SUB-Q SCH ×7 (08:32→22:14)
[2021-04-28] MEDS: glipiZIDE 10 MG TAB PO SCH ×2 (08:32→17:49)
--- NOTE | 2021-04-28 08:34 | Progress Note ---
Assessment and Plan Assessment and plan: Patient is on 4 L of nasal cannula oxygen -Persistent hypoxia; Morbid obesity/COVID-19/multifocal pneumonia Currently on 4 L of nasal cannula oxygen Home O2 evaluation and home O2 set up if needed Titrate O2 sats to more than 90% --Acute hypoxic respiratory failure Patient is on 4 L nasal cannula oxygen as of last night Wean as tolerated, home O2 evaluation prior to discharge Prone positioning --Multifocal pneumonia; No antibiotics, procalcitonin is normal --COVID-19 infection 04/18/2021 -currently on 6 L NC, home O2 eval prior to discharge -CXR shows bilateral infiltrates, procalcitonin low no antibiotics --History of COPD; Continue current management --Type 2 diabetes mellitus; uncontrolled Probably secondary to high-dose steroids Accu-Chek sliding scale coverage Long-acting insulin, monitor blood sugars and adjust the dose Diabetic diet and diabetic education prior to discharge --Hypertension/well controlled -continue current antihypertensives --Hyperlipidemia/low-cholesterol diet -atorvastatin --Obesity/BMI 50.2 Advised dietary modification exercise as tolerated and weight reduction when medically stable -discussed lifestyle modifications (diet, exercise) and the effects of weight loss on overall health. Advised bariatric surgery consultation for weight reduction program as outpatient --Possible obstructive sleep apnea; Advised outpatient pulmonary for sleep study to rule out KENDRICK To set up CPAP BiPAP at night and as needed during the day --DVT prophylaxis Subcu Lovenox Titrate oxygen to more than 90% Home O2 evaluation Possible discharge in 1 to 2 days if stable Plan of care reviewed with the patient and his nurse Discharge planning discussed during multidisciplinary rounds Brief history and daily Hospital course; 56-year-old morbidly obese male patient with significant past medical history of hypertension type 2 diabetes mellitus dyslipidemia history of bronchial asthma/COPD was admitted through emergency room with worsening shortness of breath noted to be in acute respiratory failure requiring supplemental oxygen, Recinos PCR test was positive ID and pulmonary have evaluated the patient patient is on steroids completed remdesivir did not need antibiotics as patient's procalcitonin was low, Patient is persistently hypoxic requiring high dose of nasal cannula oxygen via Ventimask, being titrated to 6 L as of last night. Patient refused CTA chest to rule out PE due to elevated D-dimers and persistent hypoxia and high risk for PE and DVT. Disposition Plan: continue medical management We will try to wean nasal cannula oxygen from 6L to 3 to 4 L Set up home oxygen prior to discharge 04/21/2021; Ventimask 15 L/50%/93 o2 sat/morbid obesity Guarded prognosis 04/22/2021; remains on Ventimask 15 L/50%/96 O2 sat Critically ill with poor prognosis. Wean as tolerated 04/23/2021; patient continues to be on 15 L oxygen Ventimask 50% FiO2 Wean as tolerated, titrate O2 sats to more than 90% Considering LTAC, patient has no resources 04/24/2021; Home O2 evaluation Patient continues to require 15 L on Ventimask Morbidly obese, patient refused high flow NC oxygen 04/25/2021; patient continues to require 15 L of oxygen on Ventimask Resting room air done yesterday was 83% Discussed the case with prepress specialist Dr. Denise and requested a consult Recommend LTAC consult, no payer source Added some antihistamines Zyrtec and some Lasix, closely monitor 04/26/2021; patient remains on 15 L O2/Ventimask/50 FiO2/96 O2 sats 04/27/2021; DC planning, home O2 evaluation, discharge in 1 to 2 days if stable Worsening D-dimers, patient remain hypoxic, morbidly obese, COVID-19, high risk for high blood coagulable state Patient refused CTA chest/V/Q scan, will start empiric therapeutic dose anticoagulation Lovenox 1 mg/kg body weight every 12 hours 04/28/2021; remains on 6 L of nasal cannula, on therapeutic anticoagulation[empiric] patient refused CTA/V/Q Follow lower extremity venous Doppler, blood sugars uncontrolled due to high steroids, adjust Lantus dose Disposition; home O2 evaluation, O2 set up, discharge when stable On empiric full dose anticoagulation, if CT chest is negative may DC Lovenox History Interval history: Patient continues to be on 6 L of nasal cannula oxygen as of last night Patient complains of mild shortness of breath and discomfort Unable to lay flat, morbidly obese Vital signs noted Hospitalist Physical - Constitutional Vitals: Temp Pulse Resp BP Pulse Ox 97.7 F 58 L 18 124/63 93 04/28/21 04:30 04/28/21 04:30 04/28/21 04:30 04/28/21 04:30 04/28/21 04:30 General appearance: Present: mild distress, well-nourished, obese (Morbidly obese) - EENT Eyes: Present: PERRL, EOM intact - Neck Neck: Present: supple, normal ROM - Respiratory Respiratory effort: normal Respiratory: bilateral: diminished, rhonchi, negative: rales, wheezing - Cardiovascular Rhythm: regular Heart Sounds: Present: S1 & S2 - Extremities Extremities: no ischemia, No edema - Abdominal General gastrointestinal: soft, non-tender, non-distended, normal bowel sounds - Integumentary Integumentary: Present: clear, warm - Psychiatric Psychiatric: appropriate mood/affect, cooperative - Neurologic Neurologic: moves all extremities HEART Score - HEART Score Troponin: Troponin T < 0.010 ng/mL (0.00-0.029) 04/16/21 06:47 Results - Labs CBC & Chem 7: 04/17/21 03:20 04/28/21 09:19 Labs: Laboratory Last Values WBC 4.1 K/mm3 (4.5-11.0) L 04/17/21 03:20 RBC 4.46 M/mm3 (3.65-5.03) 04/17/21 03:20 Hgb 11.2 gm/dl (11.8-15.2) L 04/17/21 03:20 Hct 36.0 % (35.5-45.6) 04/17/21 03:20 MCV 81 fl (84-94) L 04/17/21 03:20 MCH 25 pg (28-32) L 04/17/21 03:20 MCHC 31 % (32-34) L 04/17/21 03:20 RDW 16.1 % (13.2-15.2) H 04/17/21 03:20 Plt Count 190 K/mm3 (140-440) 04/17/21 03:20 Lymph % (Auto) 22.2 % (13.4-35.0) 04/17/21 03:20 [place] % (Auto) 10.9 % (0.0-7.3) H 04/17/21 03:20 Eos % (Auto) 0.0 % (0.0-4.3) 04/17/21 03:20 Baso % (Auto) 0.2 % (0.0-1.8) 04/17/21 03:20 Lymph # (Auto) 0.9 K/mm3 (1.2-5.4) L 04/17/21 03:20 [place] # (Auto) 0.5 K/mm3 (0.0-0.8) 04/17/21 03:20 Eos # (Auto) 0.0 K/mm3 (0.0-0.4) 04/17/21 03:20 Baso # (Auto) 0.0 K/mm3 (0.0-0.1) 04/17/21 03:20 Seg Neutrophils % 66.7 % (40.0-70.0) 04/17/21 03:20 Seg Neutrophils # 2.8 K/mm3 (1.8-7.7) 04/17/21 03:20 D-Dimer 1049.14 ng/mlDDU (0-234) H 04/27/21 10:37 Sodium 136 mmol/L (137-145) L 04/21/21 08:38 Potassium 3.6 mmol/L (3.6-5.0) 04/21/21 08:38 Chloride 96.1 mmol/L (98-107) L 04/21/21 08:38 Carbon Dioxide 24 mmol/L (22-30) 04/21/21 08:38 Anion Gap 20 mmol/L 04/21/21 08:38 BUN 14 mg/dL (9-20) 04/21/21 08:38 Creatinine 0.6 mg/dL (0.8-1.3) L 04/21/21 08:38 Estimated GFR > 60 ml/min 04/21/21 08:38 BUN/Creatinine Ratio 23 % 04/21/21 08:38 Glucose 218 mg/dL (75-100) H 04/21/21 08:38 POC Glucose 335 mg/dL (70-105) H 04/28/21 07:24 Calcium 8.5 mg/dL (8.4-10.2) 04/21/21 08:38 Ferritin 65.6 ng/mL (30.0-300.0) 04/27/21 10:37 Total Bilirubin 0.40 mg/dL (0.1-1.2) 04/21/21 08:38 AST 45 units/L (5-40) H 04/21/21 08:38 ALT 39 units/L (7-56) 04/21/21 08:38 Alkaline Phosphatase 54 units/L (35-129) 04/21/21 08:38 Lactate Dehydrogenase 271 units/L (91-180) H 04/27/21 10:37 Troponin T < 0.010 ng/mL (0.00-0.029) 04/16/21 06:47 C-Reactive Protein 0.90 mg/dL (0.00-1.30) 04/27/21 10:37 Total Protein 6.7 g/dL (6.3-8.2) 04/21/21 08:38 Albumin 3.5 g/dL (3.9-5) L 04/21/21 08:38 Albumin/Globulin Ratio 1.1 % 04/21/21 08:38 Procalcitonin 0.17 ng/mL (<0.15) 04/16/21 06:47 Coronavirus (PCR) Positive (Negative) A 04/18/21 10:00 Smith/IV: Voiding Method Urinal Active Medications - Current Medications Current Medications: Generic Name Dose Route Start Last Admin Trade Name Freq PRN Reason Stop Dose Admin Acetaminophen 650 mg 04/16/21 09:16 Acetaminophen 325 Mg Tab PO Q4H PRN Pain MILD(1-3)/Fever >100.5/ADDISON Al Hydrox/Mg Hydrox/Simethicone 30 ml 04/24/21 19:09 04/24/21 20:23 Alum-Mag Hydroxide-Simethicone [phone]/5ml Oral Liqd 30 Ml PO 30 ml Q4H PRN Administration Indigestion Albuterol 2 puff 04/17/21 08:00 04/27/21 21:00 Albuterol 8.5 Gm Mdi Inhalation IH 2 puff TIDRT EDILBERTO Administration Albuterol 2.5 mg 04/17/21 18:00 Albuterol 2.5 Mg/3 Ml Nebu IH QID PRN Wheezing Aspirin 81 mg 04/18/21 10:00 04/27/21 10:17 Aspirin 81 Mg Tab Chew PO 81 mg QDAY EDILBERTO Administration Atorvastatin Calcium 20 mg 04/17/21 22:00 04/27/21 21:59 Atorvastatin 20 Mg Tab PO 20 mg QHS EDILBERTO Administration Carvedilol 12.5 mg 04/17/21 22:00 04/27/21 22:00 Carvedilol 12.5 Mg Tab PO 12.5 mg BID EDILBERTO Administration Cetirizine HCl 10 mg 04/26/21 10:00 04/27/21 10:17 Cetirizine 10 Mg Tab PO 10 mg QDAY EDILBERTO Administration Dextrose 50 ml 04/16/21 15:59 Dextrose 50% In Water (25gm) 50 Ml Syringe IV Q30MIN PRN Hypoglycemia Protocol Enoxaparin Sodium 170 mg 04/27/21 22:00 04/27/21 21:59 Enoxaparin 100 Mg/1 Ml Inj 1 mg/kg (170 mg) 170 mg SUB-Q Administration Q12HR [facility] Protocol Furosemide 40 mg 04/26/21 10:00 04/27/21 10:17 Furosemide 40 Mg/4 Ml Inj IV 40 mg QDAY EDILBERTO Administration Gabapentin 300 mg 04/17/21 20:00 04/27/21 22:00 Gabapentin 300 Mg Cap PO 300 mg TID EDILBERTO Administration Glipizide 10 mg 04/26/21 08:00 04/27/21 17:45 Glipizide 10 Mg Tab PO 10 mg BIDDIAB EDILBERTO Administration Guaifenesin 200 mg 04/17/21 18:53 04/28/21 05:03 Guaifenesin 100 Mg/5 Ml Oral Liqd PO 200 mg Q4H PRN Administration Cough Insulin Glargine 30 units 04/27/21 22:00 04/27/21 22:00 Insulin Glargine 100 Units/Ml SUB-Q 30 units QHS EDILBERTO Administration Insulin Human Lispro 0 unit 04/16/21 16:30 04/27/21 23:24 Insulin Lispro 100 Unit/Ml SUB-Q 4 unit ACHS EDILBERTO Administration Protocol Insulin Human Lispro 10 unit 04/26/21 11:30 04/27/21 17:44 Insulin Lispro 100 Unit/Ml SUB-Q 10 unit AC EDILBERTO Administration Melatonin 5 mg 04/17/21 01:09 04/27/21 22:00 Melatonin 5 Mg Tab PO 5 mg QHS PRN Administration Sleep Methylprednisolone Sodium Succinate 60 mg 04/26/21 00:00 04/28/21 05:04 Methylprednisolone Sod Succinate 125 Mg/2 Ml Inj IV 60 mg Q6HR EDILBERTO Administration Morphine Sulfate 4 mg 04/16/21 09:16 Morphine 4 Mg/1 Ml Inj IV Q4H PRN Pain , Severe (7-10) Naloxone HCl 0.1 mg 04/16/21 09:16 Naloxone 0.4 Mg/1 Ml Inj IV Q2MIN PRN Res Rate </= 8 or 02 SAT < 92% Ondansetron HCl 4 mg 04/16/21 09:16 Ondansetron 4 Mg/2 Ml Inj IV Q8H PRN Nausea And Vomiting Oxycodone/Acetaminophen 1 tab 04/16/21 09:16 04/28/21 05:03 Oxycodone /Acetaminophen 5-325mg Tab PO 1 tab Q6H PRN Administration Pain, Moderate (4-6) Sodium Chloride 10 ml 04/16/21 10:00 04/27/21 22:01 Sodium Chloride 0.9% 10 Ml Flush Syringe IV 10 ml BID EDILBERTO Administration Sodium Chloride 10 ml 04/16/21 09:16 Sodium Chloride 0.9% 10 Ml Flush Syringe IV PRN PRN LINE FLUSH Nutrition/Malnutrition Assess - Dietary Evaluation Nutrition/Malnutrition Findings: Nutrition Notes Start: 04/18/21 10:40 Freq: Status: Active Protocol: Document 04/22/21 15:07 PHILLIP (Rec: 04/22/21 15:17 PHILLIP [id number]) Nutrition Notes Initial or Follow up Brief Note Current Diet Consistent Carbohydrates Diet (since L 04/16), D Suppl ( since L 04/18). Height 6 ft Weight 167.9 kg [place] Body Weight (kg) 80.90 BMI 50.2 Weight change and time frame 0.071 Kg body weight change in 4 days reported. Weight Status Morbidly Obese Subjective/Other Information RD consult for routine F/U on Dietary assessment. Pt's PO intake of meals has improved, now is Good (75-100% ), according to ADL notes. Percent of energy/protein needs met: Prescribed Consistent Carbohydrates Diet provides for energy/protein needs (2, 061 Kcal/91 g) during LOS; additionally, Dietary Supplements will compensate for possible Poor PO intake of meals with 440 Kcal and 20 g of protein. Current % PO Good (75-100%) Minimum of two criteria No #1 Nutrition Diagnosis Inadequate oral intake Diagnosis Progress(for reassessment Resolved documentation) Nutrition Intervention Change Diet Order: Continue Consistent Carbohydrates Diet. Add Supplement/Snack (indicate name/kcal Continue 8 fl oz Glucerna; BID /protein ) . Provides kCal: 440 Provides Protein (gm) 20 Goal #1 Compensate, through dietary supplementation, for possible poor or insufficient PO intake of meals during LOS. Goal #2 Maintain body weight within +/ -3% of admission body weight during LOS. Revisit per MD consult or patient Sign Off request: Additional Comments Continue monitoring food tolerance, %PO intake of meals , and BM.
[2021-04-28] MEDS: ENOXAPARIN 100 MG/1 ML INJ SUB-Q SCH ×2 (09:06→22:13)
[2021-04-28] MEDS: CETIRIZINE 10 MG TAB PO SCH (09:07)
[2021-04-28] MEDS: carvediloL 12.5 MG TAB PO SCH ×2 (09:07→22:13)
[2021-04-28] MEDS: FUROSEMIDE 40 MG/4 ML INJ IV SCH (09:07)
[2021-04-28] MEDS: ASPIRIN 81 MG TAB CHEW PO SCH (09:07)
[2021-04-28 10:08] LABS: Blood Urea Nitrogen 22 mg/dL (9-20); Calcium 8.9 mg/dL (8.4-10.2); Hemolysis Index 5
[2021-04-28 10:10] LABS: BUN/Creatinine Ratio 31
[2021-04-28] MEDS: ALBUTEROL 8.5 GM MDI INHALATION IH SCH ×3 (10:55→23:46)
--- NOTE | 2021-04-28 13:23 | Vascular Lab Report ---
DUPLEX DOPPLER LOWER EXTREMITY VEINS, BILATERAL INDICATION: Elevated D-dimers/hypoxia/rule out DVT. TECHNIQUE: Duplex doppler imaging was performed through the veins of both lower extremities using ve nous compression and other maneuvers. COMPARISON: No relevant prior imaging study available. FINDINGS: Right Common femoral vein: Negative. Right Superficial femoral vein: Negative. Right Popliteal vein: Negative. Right Calf veins: Negative. Left Common femoral vein: Negative. Left Superficial femoral vein: Negative. Left Popliteal vein: Negative. Left Calf veins: Negative. Additional findings: Occlusive acute appearing thrombus is identified in the superficial vein in the left gastrocnemius muscle.. IMPRESSION: No sonographic evidence for DVT in either lower extremity. Positive for superficial venous thrombosi s in the left calf as described. Signer Name: Giovani Fenton Jr, MD Signed: 04/28/2021 1:19 PM Workstation Name: [id number]
--- NOTE | 2021-04-28 16:27 | Progress Note ---
Assessment and Plan 56 y/o obese male with acute respiratory failure secondary to COVID 19 04/28/21: Can likely switch to oral lasix. Will change to solumedrol 40q8. Suggest preparing for discharge. Will need walk test prior to discharge and prolonged steroid taper. Prednisone 60mg daily for 4 days, 40mg daily for 4 days, 20mg daily for 4 days then 10mg daily for 4 days then stop. Will see PRN. Call if questions. 04/27/21: Continue lasix therapy. Weight loss. Continue solumedrol, will start to taper tomorrow. Prone if possible. 1. Will give a trial of IV lasix, ordered for tomorrow 2. Encourage patient to prone as much as tolerated during the day and sleep prone at night 3. Given smoking history, may have some COPD. Decadron has fallen off JUN. Will start solumedrol 4. Continue albuterol. No long acting puffers available in house. Guarded prognosis. Subjective Date of service: 04/28/21 Interval history: Down to 4 liters with good sats. REsponding very well to lasix therapy. Objective Vital Signs - 12hr 04/28/21 04/28/21 04/28/21 04:30 09:07 10:56 Temperature 97.7 F Pulse Rate 58 L Pulse Rate [ Bilateral Throughout] Respiratory 18 Rate Respiratory Rate [Bilateral Throughout] Blood Pressure 124/63 124/63 O2 Sat by Pulse 93 95 Oximetry 04/28/21 04/28/21 04/28/21 10:57 11:34 11:39 Temperature 98.3 F Pulse Rate 64 Pulse Rate [ 71 Bilateral Throughout] Respiratory 24 Rate Respiratory 20 Rate [Bilateral Throughout] Blood Pressure 109/73 O2 Sat by Pulse 93 95 Oximetry 04/28/21 15:48 Temperature Pulse Rate Pulse Rate [ 69 Bilateral Throughout] Respiratory Rate Respiratory 22 Rate [Bilateral Throughout] Blood Pressure O2 Sat by Pulse Oximetry Constitutional: no acute distress, appears uncomfortable, other (morbidly obese) Eyes: non-icteric ENT: other Neck: other (large in circumference, >17 inches) Ascultation: Bilateral: diminished breath sounds Percussion: Bilateral: not dull Tactile fremitus: Bilateral: normal Cardiovascular: regular rate and rhythm Gastrointestinal: normoactive bowel sounds Extremities: other (edema is present) Neurologic: normal mental status, other (DOES HAVE SOME FORM OF TARDIVE DYSKINESIA) CBC and BMP: 04/17/21 03:20 04/28/21 09:19 ABG, PT/INR, D-dimer: PT/INR, D-dimer D-Dimer 1049.14 ng/mlDDU (0-234) H 04/27/21 10:37 Abnormal lab findings: Abnormal Labs 04/16/21 04/16/21 04/16/21 06:47 06:47 06:47 WBC 4.1 L Hgb 11.6 L MCV 80 L MCH 25 L MCHC RDW 16.3 H Morton % (Auto) Lymph # (Auto) D-Dimer 295.17 H Sodium 133 L Chloride 93.5 L BUN Creatinine 0.6 L Glucose 197 H POC Glucose AST 48 H Lactate Dehydrogenase C-Reactive Protein 6.00 H Albumin 3.8 L Coronavirus (PCR) 04/16/21 04/16/21 04/17/21 19:42 22:34 03:20 WBC 4.1 L Hgb 11.2 L MCV 81 L MCH 25 L MCHC 31 L RDW 16.1 H Morton % (Auto) 10.9 H Lymph # (Auto) 0.9 L D-Dimer Sodium Chloride BUN Creatinine Glucose 291 H POC Glucose 252 H AST Lactate Dehydrogenase C-Reactive Protein Albumin Coronavirus (PCR) 04/17/21 04/17/21 04/17/21 03:20 08:45 23:07 WBC Hgb MCV MCH MCHC RDW Morton % (Auto) Lymph # (Auto) D-Dimer Sodium 132 L Chloride 93.4 L BUN Creatinine 0.7 L Glucose 235 H 216 H POC Glucose 261 H AST Lactate Dehydrogenase C-Reactive Protein Albumin Coronavirus (PCR) 04/18/21 04/18/21 04/18/21 05:08 08:10 10:00 WBC Hgb MCV MCH MCHC RDW Morton % (Auto) Lymph # (Auto) D-Dimer Sodium 130 L Chloride 93.5 L BUN Creatinine 0.6 L Glucose 242 H POC Glucose 245 H AST Lactate Dehydrogenase C-Reactive Protein Albumin Coronavirus (PCR) Positive A 04/18/21 04/18/21 04/18/21 11:46 16:31 21:15 WBC Hgb MCV MCH MCHC RDW Morton % (Auto) Lymph # (Auto) D-Dimer Sodium Chloride BUN Creatinine Glucose POC Glucose 266 H 245 H 288 H AST Lactate Dehydrogenase C-Reactive Protein Albumin Coronavirus (PCR) 04/19/21 04/19/21 04/19/21 07:36 10:14 10:14 WBC Hgb MCV MCH MCHC RDW Morton % (Auto) Lymph # (Auto) D-Dimer Sodium 135 L Chloride 96.0 L BUN Creatinine 0.6 L Glucose 271 H 272 H POC Glucose 364 H AST 48 H Lactate Dehydrogenase C-Reactive Protein Albumin 3.5 L Coronavirus (PCR) 04/19/21 04/19/21 04/19/21 10:14 10:14 11:52 WBC Hgb MCV MCH MCHC RDW Morton % (Auto) Lymph # (Auto) D-Dimer 298.94 H Sodium Chloride BUN Creatinine Glucose POC Glucose 273 H AST Lactate Dehydrogenase 370 H C-Reactive Protein 9.90 H Albumin Coronavirus (PCR) 04/19/21 04/19/21 04/20/21 16:11 21:05 07:33 WBC Hgb MCV MCH MCHC RDW Morton % (Auto) Lymph # (Auto) D-Dimer Sodium Chloride BUN Creatinine Glucose POC Glucose 302 H 283 H 235 H AST Lactate Dehydrogenase C-Reactive Protein Albumin Coronavirus (PCR) 04/20/21 04/20/21 04/20/21 07:48 10:39 16:11 WBC Hgb MCV MCH MCHC RDW Morton % (Auto) Lymph # (Auto) D-Dimer Sodium 136 L Chloride 96.2 L BUN Creatinine 0.6 L Glucose 297 H POC Glucose 289 H 320 H AST Lactate Dehydrogenase C-Reactive Protein Albumin 3.6 L Coronavirus (PCR) 04/20/21 04/21/21 04/21/21 22:12 07:25 08:38 WBC Hgb MCV MCH MCHC RDW Morton % (Auto) Lymph # (Auto) D-Dimer Sodium 136 L Chloride 96.1 L BUN Creatinine 0.6 L Glucose 218 H POC Glucose 274 H 211 H AST 45 H Lactate Dehydrogenase C-Reactive Protein Albumin 3.5 L Coronavirus (PCR) 04/21/21 04/21/21 04/21/21 11:41 16:30 22:22 WBC Hgb MCV MCH MCHC RDW Morton % (Auto) Lymph # (Auto) D-Dimer Sodium Chloride BUN Creatinine Glucose POC Glucose 248 H 299 H 285 H AST Lactate Dehydrogenase C-Reactive Protein Albumin Coronavirus (PCR) 04/22/21 04/22/21 04/22/21 07:42 12:33 16:29 WBC Hgb MCV MCH MCHC RDW Morton % (Auto) Lymph # (Auto) D-Dimer Sodium Chloride BUN Creatinine Glucose POC Glucose 174 H 219 H 329 H AST Lactate Dehydrogenase C-Reactive Protein Albumin Coronavirus (PCR) 04/22/21 04/23/21 04/23/21 20:54 07:24 11:58 WBC Hgb MCV MCH MCHC RDW Morton % (Auto) Lymph # (Auto) D-Dimer Sodium Chloride BUN Creatinine Glucose POC Glucose 316 H 184 H 223 H AST Lactate Dehydrogenase C-Reactive Protein Albumin Coronavirus (PCR) 04/23/21 04/23/21 04/23/21 12:57 16:30 22:16 WBC Hgb MCV MCH MCHC RDW Morton % (Auto) Lymph # (Auto) D-Dimer Sodium Chloride BUN Creatinine Glucose POC Glucose 254 H 354 H 288 H AST Lactate Dehydrogenase C-Reactive Protein Albumin Coronavirus (PCR) 04/24/21 04/24/21 04/24/21 07:53 11:40 16:47 WBC Hgb MCV MCH MCHC RDW Morton % (Auto) Lymph # (Auto) D-Dimer Sodium Chloride BUN Creatinine Glucose POC Glucose 184 H 273 H 304 H AST Lactate Dehydrogenase C-Reactive Protein Albumin Coronavirus (PCR) 04/24/21 04/25/21 04/25/21 22:39 07:20 10:58 WBC Hgb MCV MCH MCHC RDW Morton % (Auto) Lymph # (Auto) D-Dimer Sodium Chloride BUN Creatinine Glucose POC Glucose 252 H 194 H 251 H AST Lactate Dehydrogenase C-Reactive Protein Albumin Coronavirus (PCR) 04/25/21 04/25/21 04/25/21 14:47 14:47 17:33 WBC Hgb MCV MCH MCHC RDW Morton % (Auto) Lymph # (Auto) D-Dimer 931.74 H Sodium Chloride BUN Creatinine Glucose POC Glucose 316 H AST Lactate Dehydrogenase 413 H C-Reactive Protein 2.70 H Albumin Coronavirus (PCR) 04/25/21 04/26/21 04/26/21 21:39 07:09 11:24 WBC Hgb MCV MCH MCHC RDW Morton % (Auto) Lymph # (Auto) D-Dimer Sodium Chloride BUN Creatinine Glucose POC Glucose 304 H 294 H 386 H AST Lactate Dehydrogenase C-Reactive Protein Albumin Coronavirus (PCR) 04/26/21 04/26/21 04/27/21 16:30 21:23 07:16 WBC Hgb MCV MCH MCHC RDW Morton % (Auto) Lymph # (Auto) D-Dimer Sodium Chloride BUN Creatinine Glucose POC Glucose 371 H 358 H 303 H AST Lactate Dehydrogenase C-Reactive Protein Albumin Coronavirus (PCR) 04/27/21 04/27/21 04/27/21 10:37 10:37 11:06 WBC Hgb MCV MCH MCHC RDW Morton % (Auto) Lymph # (Auto) D-Dimer 1049.14 H Sodium Chloride BUN Creatinine Glucose POC Glucose 470 H AST Lactate Dehydrogenase 271 H C-Reactive Protein Albumin Coronavirus (PCR) 04/27/21 04/27/21 04/28/21 16:18 22:58 07:24 WBC Hgb MCV MCH MCHC RDW Morton % (Auto) Lymph # (Auto) D-Dimer Sodium Chloride BUN Creatinine Glucose POC Glucose 301 H 293 H 335 H AST Lactate Dehydrogenase C-Reactive Protein Albumin Coronavirus (PCR) 04/28/21 04/28/21 04/28/21 09:19 11:32 16:19 WBC Hgb MCV MCH MCHC RDW Morton % (Auto) Lymph # (Auto) D-Dimer Sodium 134 L Chloride 92.2 L BUN 22 H Creatinine 0.7 L Glucose 421 H POC Glucose 377 H 319 H AST Lactate Dehydrogenase C-Reactive Protein Albumin Coronavirus (PCR)
--- NOTE | 2021-04-28 18:57 | Cat Scan Report ---
CTA CHEST WITH CONTRAST INDICATION / CLINICAL INFORMATION: COVID, hypoxia, elev D-dimer, rule out PE. TECHNIQUE: Axial CT images were obtained through the chest after injection of IV contrast. 3 plane AR P and/or 3D reconstructions were produced. All CT scans at this location are performed using CT dose reduction for ALARA by means of automated exposure control. COMPARISON: None available. FINDINGS: The central pulmonary arteries are patent. There are a few of the peripheral pulmonary arteries withi n bilateral lungs which are not well opacified. Contrast bolus timing is suboptimal. Diffuse bilatera l pulmonary opacities and densities are seen in bilateral lungs heart appears normal. Visualized port ions of the upper abdomen appear normal. No acute bone findings are seen. IMPRESSION: 1. The central pulmonary arteries are patent. The mid to distal pulmonary arteries are not completely opacified and a peripheral PTE cannot be excluded. This is best seen within the left upper lung. Cli nical correlation follow-up. 2. Diffuse bilateral pulmonary opacities and infiltrates in bilateral lungs. Called to [facility] at 550, room 351 Signer Name: Demetrius Chaudhari MD Signed: 04/28/2021 6:53 PM Workstation Name: [id number]
[2021-04-28] MEDS ORDERED: INSULIN GLARGINE 100 UNITS/ML SUB-Q SCH (22:00)
[2021-04-28] MEDS: MELATONIN 5 MG TAB PO PRN (22:13)
[2021-04-29] MEDS: methylPREDNISolone Sod Succinate 125 MG/2 ML INJ IV SCH ×2 (05:19→15:24)
[2021-04-29] MEDS: oxyCODONE /ACETAMINOPHEN 5-325MG TAB PO PRN ×2 (05:19→12:05)
[2021-04-29] MEDS: guaiFENesin 100 MG/5 ML ORAL LIQD PO PRN (05:19)
[2021-04-29] MEDS: ALBUTEROL 8.5 GM MDI INHALATION IH SCH ×2 (08:56→14:26)
[2021-04-29] MEDS: CETIRIZINE 10 MG TAB PO SCH (09:37)
[2021-04-29] MEDS: ENOXAPARIN 100 MG/1 ML INJ SUB-Q SCH (09:37)
[2021-04-29] MEDS: glipiZIDE 10 MG TAB PO SCH ×2 (09:37→18:09)
[2021-04-29] MEDS: GABAPENTIN 300 MG CAP PO SCH ×2 (09:37→15:23)
[2021-04-29] MEDS: ASPIRIN 81 MG TAB CHEW PO SCH (09:37)
[2021-04-29] MEDS: FUROSEMIDE 40 MG/4 ML INJ IV SCH (09:38)
[2021-04-29] MEDS: carvediloL 12.5 MG TAB PO SCH (09:39)
[2021-04-29] MEDS: INSULIN LISPRO 100 UNIT/ML SUB-Q SCH ×6 (09:40→18:14)
--- NOTE | 2021-04-29 11:13 | Discharge Summary ---
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 patient was placed on steroids, completed remdesivir, did not need antibiotics as patient's procalcitonin was low. Patient is persistently hypoxic requiring high flow of nasal cannula oxygen via Ventimask, being titrated to <5L as of last night. Patient refused CTA chest to rule out PE due to elevated D-dimers and persistent hypoxia. He was managed with anticoagulation, arrange for home O2. Patient was then discharged home in stable condition with outpatient follow-up. 04/21/2021; Ventimask 15 L/50%/93 o2 sat/morbid obesity Guarded prognosis 04/22/2021; remains on Ventimask 15 L/50%/96 O2 sat Critically ill with poor prognosis. Wean as tolerated 04/23/2021; patient continues to be on 15 L oxygen Ventimask 50% FiO2 Wean as tolerated, titrate O2 sats to more than 90% Considering LTAC, patient has no resources 04/24/2021; Home O2 evaluation Patient continues to require 15 L on Ventimask Morbidly obese, patient refused high flow NC oxygen 04/25/2021; patient continues to require 15 L of oxygen on Ventimask Resting room air done yesterday was 83% Discussed the case with collar turner operator Dr. Denise and requested a consult Recommend LTAC consult, no payer source Added some antihistamines Zyrtec and some Lasix, closely monitor 04/26/2021; patient remains on 15 L O2/Ventimask/50 FiO2/96 O2 sats 04/27/2021; DC planning, home O2 evaluation, discharge in 1 to 2 days if stable Worsening D-dimers, patient remain hypoxic, morbidly obese, COVID-19, high risk for high blood coagulable state Patient refused CTA chest/V/Q scan, will start empiric therapeutic dose anticoagulation Lovenox 1 mg/kg body weight every 12 hours 04/28/2021; remains on 6 L of nasal cannula, on therapeutic anticoagulation[empiric] patient refused CTA/V/Q Follow lower extremity venous Doppler, blood sugars uncontrolled due to high steroids, adjust Lantus dose 04/29/21: Patient clinically appears to be stable, home O2 has been arranged. Patient will be discharged home today with outpatient follow-up. Disposition: 01 HOME / SELF CARE / HOMELESS Final Discharge Diagnosis (Prints w/discharge instructions): --Acute hypoxic respiratory failure. --Multifocal pneumonia;. --COVID-19 infection. --COPD with acute exacerbation, POA. --Type 2 diabetes mellitus; uncontrolled. --Hype rtension/well controlled. --Hyperlipidemia/low-cholesterol diet. --Obesity/BMI 50.2. --Possible obstructive sleep apnea; Time spent for discharge: 34 minutes Core Measure Documentation - Palliative Care Palliative Care/ Comfort Measures: Not Applicable - Core Measures Any of the following diagnoses?: none Exam - Physical Exam Narrative exam: General appearance: Present: mild distress, well-nourished, obese (Morbidly obese) - EENT Eyes: Present: PERRL, EOM intact - Neck Neck: Present: supple, normal ROM - Respiratory Respiratory effort: normal Respiratory: bilateral: diminished, rhonchi, negative: rales, wheezing - Cardiovascular Rhythm: regular Heart Sounds: Present: S1 & S2 - Extremities Extremities: no ischemia, No edema - Abdominal General gastrointestinal: soft, non-tender, non-distended, normal bowel sounds - Integumentary Integumentary: Present: clear, warm - Psychiatric Psychiatric: appropriate mood/affect, cooperative - Neurologic Neurologic: moves all extremities - Constitutional Vitals: Temp Pulse Resp BP Pulse Ox 97.8 F 66 20 130/75 95 04/29/21 06:17 04/29/21 09:39 04/29/21 08:55 04/29/21 09:39 04/29/21 09:00 Plan Activity: advance as tolerated Weight Bearing Status: Weight Bear as Tolerated Diet: low fat, low salt Additional Instructions: Patient is medically stable for discharge today. Patient advised to follow-up primary care physician within 1 to 2 weeks. Advised to comply with medications diet and follow-up visits. If he has worsening symptoms advised him to contact primary care physician go to the nearest emergency room as needed Follow up with: PRIMARY CARE, [Primary Care Provider] - 3-5 Days SEBAS WHARTON MD [Staff Physician] - 7 Days Prescriptions: predniSONE 10 mg PO .TAPER #21 tab
[2021-04-29 13:23] LABS: C-Reactive Protein 0.3 mg/dL (0.00-1.30)
[2021-04-29 18:58] VITALS: BP 123/78
== END 2021-04-29 19:05 | disposition home or self-care (01) | DRG 177 ==
LOC: ED 03:02 → 3A 09:16 → INTOOBSV 15:53 → OBSVTOIN 15:53 → 3A 04-17 13:36
PROVIDERS: ADMIT Student in an Organized Health Care Education/Training Program; ATTEND Internal Medicine
PROC: XW033E5 Introduction of Remdesivir Anti-infective into Peripheral Vein, Percutaneous Approach, New Technology Group 5 (ICD-10-PCS; 2021-04-18)
PROC: 3E0234Z Introduction of Serum, Toxoid and Vaccine into Muscle, Percutaneous Approach (ICD-10-PCS; principal; 2021-04-19)
DX: U07.1 COVID-19 (principal); J96.01 Acute respiratory failure with hypoxia; J12.82 Pneumonia due to coronavirus disease 2019; Z68.43 Body mass index [BMI] 50.0-59.9, adult; I10 Essential (primary) hypertension; K21.9 Gastro-esophageal reflux disease without esophagitis; E78.00 Pure hypercholesterolemia, unspecified; Z87.891 Personal history of nicotine dependence; E11.9 Type 2 diabetes mellitus without complications; I25.2 Old myocardial infarction; E11.40 Type 2 diabetes mellitus with diabetic neuropathy, unspecified; E78.5 Hyperlipidemia, unspecified; E66.01 Morbid (severe) obesity due to excess calories; Z23 Encounter for immunization
CPT/HCPCS: 36415; 71045; 71275; 80048; 80053; 82728; 82947; 82962; 83615; 83735; 84145; 84484; 85025; 85027; 85379; 86140; 93005; 93970; 94640; 94760; G0378; Q0162; Q9967; J0696; J1100; J1650; J1815; J1940; J2930; J7030; J7050; J8540; U0003